=== PATIENT | female | born 1975 | race Caucasian/White ===

== ENCOUNTER → 2017-11-17 11:57 | Outpatient (CLI) | payer OTHER, SELFPAY ==
[2017-11-17 14:41] LABS: Anion Gap 9 (5-15); BUN 17 mg/dL (7-18); Calcium,Total 9.2 mg/dL (8.5-10.1); Chloride 100 mmol/L (98-107); Cholesterol 238 mg/dL (200); Creatinine, Serum 0.81 mg/dL (0.55-1.02); EST Glomerular Filtration Rate 82 mL/min (>60); Est Glom Filt Rate - Afr Amer 99 mL/min (>60); Glucose 93 mg/dL (74-106); High Density Lipoprotein 50 mg/dL; Potassium 3.9 mmol/L (3.5-5.1); Sodium Level 135 mmol/L (136-145); Triglycerides 166 mg/dL; Very Low Density Lipoprotein 33 mg/dL (5-40)
[2017-11-21 09:50] LABS: Cotinine Screen Blood None Detected (.); Nicotine Blood None Detected (.)
== END ==
PROVIDERS: Family Provider Family Medicine; PCP Family Medicine; Visit Provider Family Medicine
DX: I10 Essential (primary) hypertension (principal); Z01.89 Encounter for other specified special examinations
CPT/HCPCS: 36415; 80048; 80061; 80323

== ENCOUNTER 2018-02-26 16:31 | Emergency (ER) | payer OTHER, SELFPAY ==
[2018-02-26 16:32] VITALS: BP 143/97; PULSE 102; RESP 20; TEMP 36.4; BMI 28.9
--- NOTE | 2018-02-26 16:59 | ED.VISSUMM ---
- ER Visit Summary Date of Service: 02/26/18 Chief Complaint: Lower back pain History of Present Illness: The patient is a 42 F who presents for severe right-sided lower back pain. Patient states she was getting out of her car 3 days ago when she had sudden onset of sharp stabbing lower back pain, worse on the right. Patient had a difficult time transferring but had improvement if she stood up and was still. Sharp stabbing pain with motion radiates down the right buttock and back of the right thigh, and does not go below the mid calf. She tried ibuprofen at that time. She felt somewhat better the next day, but for the last 2 days has been having severe pain limiting her mobility. She has most relief if she stands still. She has severe pain if she tries to bend, sit, lay down, or get up out of bed. She has been able to walk, but anything requiring flexion or extension at the waist causes pain. She denies abdominal pain, nausea or vomiting, fever, urinary incontinence or retention, bowel incontinence or retention, numbness or weakness in the legs, saddle anesthesia, history of cancer or IV drug use. No prior back injuries. Patient had gallbladder surgery 1 month ago. She tried 2 of her Percocet from surgery and had no relief of her back pain. She recently was moving bricks at home. Physical Examination: Vital signs: afebrile, hemodynamically stable, no hypoxia on room air General: well nourished, well developed, full, standing straight and very still Skin: warm, dry, no rash, no pallor HEENT: normocephalic and atraumatic; PERRL, EOMI, moist mucous membranes Cardiovascular: regular rate and rhythm without murmurs, no peripheral edema, 2+ pulses all distal extremities Respiratory: No increased work of breathing, lungs are clear to auscultation bilaterally, no rales, rhonchi or wheezing Abdominal: Abdomen is soft, nontender with normoactive bowel sounds, no guarding or rebound, no masses Back: No thoracic or cervical midline tenderness. Point tenderness in the lower lumbosacral midline and tenderness to palpation of the right paraspinal musculature. No step-offs deformities, induration or fluctuance. Sensation and motor function are intact all dermatomes of the lower extremities. Normal buttock clench. MSK: Moves all extremities, no deformities, normal strength Neuro: Awake and alert, oriented ?4. No facial droop, sensation and motor function intact and symmetric Test Results: [] Emergency Department Course and Treatment: Patient presents with history and physical exam consistent with a lumbosacral strain, with right-sided radicular symptoms. She has no red flag symptoms concerning for cauda equina, epidural hematoma or mass, other concern for spinal compression. Patient was given Norflex and Toradol for pain. We discussed medication and non-medication management of low back pain. Patient was given a prescription for naproxen and Flexeril. She will follow-up with your primary care doctor if she continues to have back pain after 10-14 days. Return precautions given. Discharged home. Treatment Plan: [] Disposition: [] Impression: Acute lumbosacral strain This note was generated with [employer] dictation software. It may contain incorrect words, spelling, and punctuation that were not noted in review of the chart prior to signing ED Disposition - Plan for ED Patient: Disposition: Home or Assisted Living Chief Complaint: Back Instructions: ED Low Back Pain Injury, ED Sprain Strain Lumbar Prescriptions: RX: Naproxen [Naprosyn] 500 mg PO BID PRN #20 tab Cyclobenzaprine [Flexeril] 5 - 10 mg PO TID PRN #30 tab PRN Reason: Muscle Spasm Referrals: Riky Harris MD [Primary Care Provider] - 10-14 Days if not better Additional Instructions: You may use [id number] naproxen or the prescription for naproxen that you were given. Take it every 12 hours for 3 days whether you feel you need it or not just to help with inflammation. Afterwards you may take it as needed. Use the Flexeril as needed for muscle spasm. Do not drive or do any other dangerous activities while taking it in case it makes you sleepy. If at any point you develop fever, severe abdominal pain, loss of bowel or bladder control, weakness in the legs, numbness in the groin, or any other concerning symptoms, return immediately to the emergency department for another evaluation.
--- NOTE | 2018-02-26 17:03 | ED.DCSUM_ITS ---
- ER Visit Summary Date of Service: 02/26/18 Chief Complaint: Lower back pain History of Present Illness: The patient is a 42 F who presents for severe right- sided lower back pain. Patient states she was getting out of her car 3 days ago when she had sudden onset of sharp stabbing lower back pain, worse on the right. Patient had a difficult time transferring but had improvement if she stood up and was still. Sharp stabbing pain with motion radiates down the right buttock and back of the right thigh, and does not go below the mid calf. She tried ibuprofen at that time. She felt somewhat better the next day, but for the last 2 days has been having severe pain limiting her mobility. She has most relief if she stands still. She has severe pain if she tries to bend, sit, lay down, or get up out of bed. She has been able to walk, but anything requiring flexion or extension at the waist causes pain. She denies abdominal pain, nausea or vomiting, fever, urinary incontinence or retention, bowel incontinence or retention, numbness or weakness in the legs, saddle anesthesia, history of cancer or IV drug use. No prior back injuries. Patient had gallbladder surgery 1 month ago. She tried 2 of her Percocet from surgery and had no relief of her back pain. She recently was moving bricks at home. Physical Examination: Vital signs: afebrile, hemodynamically stable, no hypoxia on room air General: well nourished, well developed, full, standing straight and very still Skin: warm, dry, no rash, no pallor HEENT: normocephalic and atraumatic; PERRL, EOMI, moist mucous membranes Cardiovascular: regular rate and rhythm without murmurs, no peripheral edema, 2+ pulses all distal extremities Respiratory: No increased work of breathing, lungs are clear to auscultation bilaterally, no rales, rhonchi or wheezing Abdominal: Abdomen is soft, nontender with normoactive bowel sounds, no guarding or rebound, no masses Back: No thoracic or cervical midline tenderness. Point tenderness in the lower lumbosacral midline and tenderness to palpation of the right paraspinal musc ulature. No step-offs deformities, induration or fluctuance. Sensation and motor function are intact all dermatomes of the lower extremities. Normal buttock clench. MSK: Moves all extremities, no deformities, normal strength Neuro: Awake and alert, oriented ?4. No facial droop, sensation and motor function intact and symmetric Test Results: [] Emergency Department Course and Treatment: Patient presents with history and physical exam consistent with a lumbosacral strain, with right-sided radicular symptoms. She has no red flag symptoms concerning for cauda equina, epidural hematoma or mass, other concern for spinal compression. Patient was given Norflex and Toradol for pain. We discussed medication and non-medication ma nagement of low back pain. Patient was given a prescription for naproxen and Flexeril. She will follow-up with your primary care doctor if she continues to have back pain after 10-14 days. Return precautions given. Discharged home. Treatment Plan: [] Disposition: [] Impression: Acute lumbosacral strain This note was generated with [employer] dictation software. It may contain incorrect words, spelling, and punctuation that were not noted in review of the chart prior to signing ED Disposition - Plan for ED Patient: Disposition: Home or Assisted Living Chief Complaint: Back Instructions: ED Low Back Pain Injury, ED Sprain Strain Lumbar Prescriptions: RX: Naproxen [Naprosyn] 500 mg PO BID PRN #20 tab Cyclobenzaprine [Flexeril] 5 - 10 mg PO TID PRN #30 tab PRN Reason: Muscle Spasm Referrals: Riky Harris MD [Primary Care Provider] - 10-14 Days if not better Additional Instructions: You may use [id number] naproxen or the prescription for naproxen that you were given. Take it every 12 hours for 3 days whether you feel you need it or not just to help with inflammation. Afterwards you may take it as needed. Use the Flexeril as needed for muscle spasm. Do not drive or do any other dangerous activities while taking it in case it makes you sleepy. If at any point you develop fever, severe abdominal pain, loss of bowel or bladder control, weakness in the legs, numbness in the groin, or any other concerning symptoms, return immediately to the emergency department for another evaluation.
[2018-02-26] MEDS: Ketorolac 60 MG/2 ML Vial IM (17:04)
[2018-02-26] MEDS: Orphenadrine 60 MG/2 ML Ampul IM (17:04)
--- NOTE | 2018-02-26 17:20 | ED.DEP ---
ED Disposition - Plan for ED Patient: Disposition: Home or Assisted Living Chief Complaint: Back Instructions: ED Low Back Pain Injury, ED Sprain Strain Lumbar Prescriptions: Naproxen [Naprosyn] 500 mg PO BID PRN #20 tab Cyclobenzaprine [Flexeril] 5 - 10 mg PO TID PRN #30 tab PRN Reason: Muscle Spasm Referrals: Riky Harris MD [Primary Care Provider] - 10-14 Days if not better Additional Instructions: You may use [id number] naproxen or the prescription for naproxen that you were given. Take it every 12 hours for 3 days whether you feel you need it or not just to help with inflammation. Afterwards you may take it as needed. Use the Flexeril as needed for muscle spasm. Do not drive or do any other dangerous activities while taking it in case it makes you sleepy. If at any point you develop fever, severe abdominal pain, loss of bowel or bladder control, weakness in the legs, numbness in the groin, or any other concerning symptoms, return immediately to the emergency department for another evaluation.
[2018-02-26 17:30] VITALS: BP 118/62; PULSE 74; RESP 16; O2SAT 98
== END 2018-02-26 17:31 | disposition home or self-care (01) ==
PROVIDERS: Emergency Provider Emergency Medicine; Family Provider Family Medicine; PCP Family Medicine
DX: S39.012A Strain of muscle, fascia and tendon of lower back, initial encounter (principal); X50.0XXA Overexertion from strenuous movement or load, initial encounter; Y93.89 Activity, other specified; Y92.89 Other specified places as the place of occurrence of the external cause; Y99.8 Other external cause status
CPT/HCPCS: 96372; 99282

== ENCOUNTER → 2018-03-31 11:38 | Outpatient (CLI) | payer OTHER, SELFPAY ==
[2018-04-04 09:06] LABS: HPV Reflexed? NOT INDICATED
== END ==
PROVIDERS: PCP Family Medicine; Visit Provider Obstetrics & Gynecology
DX: Z12.4 Encounter for screening for malignant neoplasm of cervix (principal)
CPT/HCPCS: 88175; G0145

== ENCOUNTER → 2018-05-10 14:44 | Outpatient (CLI) | payer OTHER, SELFPAY ==
--- NOTE | 2018-05-10 14:49 | BI_ITS ---
MAMMOGRAPHY - BILATERAL SCREENING REASON FOR EXAM: Female, 43 years old. Routine annual screening examination. PERTINENT HISTORY: Aunt with breast cancer. TECHNIQUE: Digital bilateral breast aretha (3D mammographic acquisition) in the CC and MLO projections. 2-D mediolateral oblique (MLO) and craniocaudad (CC) views of both breasts were obtained. CAD: Full Field Digital Mammography with Computer Added Detection was performed. COMPARISON: Comparison is made with prior study dated April 08, 2016 and April 05, 2015. FINDINGS: Breast Composition: There are scattered areas of fibroglandular density. There are no dominant masses or suspicious calcifications. No other significant abnormalities are identified. There has been no significant change since the prior study. BI/SCREENING MAMM (CAD), BILAT IMPRESSION: Stable bilateral screening mammogram. Yearly follow-up mammogram recommended. (A) ASSESSMENT CATEGORY: BIRADS Category 1: Negative. A letter regarding these results will be sent to the patient by the facility within 30 days. Approximately 10% of breast cancers are not detected by mammography. A normal mammogram should not delay biopsy of a clinically suspicious abnormality. [id number] Electronically Signed: Brant Bonds, at 9:30 EST , Service support ,
== END ==
PROVIDERS: Family Provider Family Medicine; PCP Family Medicine; Referring Provider Obstetrics & Gynecology; Visit Provider Obstetrics & Gynecology
DX: Z12.31 Encounter for screening mammogram for malignant neoplasm of breast (principal)
CPT/HCPCS: 77063; 77067

== ENCOUNTER → 2019-06-29 09:30 | Outpatient (CLI) | payer OTHER, SELFPAY ==
--- NOTE | 2019-06-29 09:34 | VDLE_ITS ---
Reason For Study: Pain in left leg Procedure LEFT Exam performed in department. GSV is normal. A preliminary report was called and/or faxed CFV is compressible, spontaneous, phasic, to Moncho. competent, and demonstrates normal augmentation. FV is compressible, spontaneous, phasic, competent and demonstrates normal augmentation. POP V is compressible, spontaneous, phasic, competent and demonstrates normal augmentation. T/P Trunk is compressible. PTV is compressible. LT PerV is compressible. Large nonvascularized structure noted in the left popliteal space measuring approximently 1.19 x 4.31 x 6.14 cm. Large nonvascualrized structure noted in the left mid calf muscle region measuring approximently 1.68 x 4.38 cm. Interpretation Summary Deep veins of the left lower extremity are patent and compressible segmentally. There is no evidence of left lower extremity deep vein thrombosis. Valvular competence appears intact within the proximal deep venous system on the left . The left great saphenous vein appears patent and compressible segmentally. A non-vascular, hypoechoic structure is noted in the left popliteal space, measuring 1.19 cm x 4.31 cm x 6.14 cm. This may represent a popliteal cyst. A non-vascular, heterogeneous structure is noted in the left mid-calf, measuring 1.68 cm x 4.38 cm. This may represent a seroma or hematoma. Clinical correlation is advised. Ordering Physician: Zuleika Ivan Referring Physician: Reynaldo Harris MD Performed By: Sadie Salas RVT
== END ==
PROVIDERS: PCP Family Medicine; Referring Provider Registered Nurse; Visit Provider Registered Nurse
DX: M79.605 Pain in left leg (principal)
CPT/HCPCS: 93971

== ENCOUNTER → 2019-07-06 | Outpatient (CLI) | payer OTHER, SELFPAY ==
--- NOTE | 2019-07-06 15:34 | MRI_ITS ---
PROCEDURE: MRI LOWER EXTREMITY LEFT TIBIA/FIBULA REASON FOR EXAM: Female, 44 years old. left leg pain, left calf pain, pt felt ;tear ; 3 wks ago TECHNIQUE: Standardized fat and water weighted pulse sequences were obtained in all 3 orthogonal planes. COMPARISON: None. FINDINGS: Normal tibia and fibula, without a periosteal, cortical or cancellous marrow abnormality. Normal anterior and lateral calf compartments, with normal muscles, crural fascia and intermuscular septa. There is a popliteal cyst at the knee. There is a 10.2 x 4.5 cm heterogeneous lobular fluid collection between the medial head of the gastrocnemius and the soleus and probable hematoma, series 3 images 11/02 through 02/02. There is mild edema of the gastrocnemius and soleus. MRI/Lower Ext/No Jt/w/o IMPRESSION: Fluid collection of the medial calf suggesting hematoma associated with plantaris tendon rupture. Electronically Signed: Adair Allen MD at 17:35 EDT , Service support ,
--- NOTE | 2019-07-06 15:34 | MRI_ITS ---
STUDY: MRI LEFT KNEE REASON FOR EXAM: Female, 44 years old. Pain. TECHNIQUE: Standardized fat and water weighted pulse sequences were obtained in all 3 orthogonal planes. COMPARISON: None. FINDINGS: Normal medial meniscus. There is diffuse, less than 50% thickness articular cartilage loss of the medial femorotibial compartment. Normal medial femoral condyle and tibial plateau. Normal medial collateral ligamentous complex (MCL). Normal distal semimembranosus, gracilis and semitendinosus tendons. Normal lateral meniscus. Normal hyaline cartilage of the lateral femorotibial compartment. Normal lateral femoral condyle and tibial plateau. Normal proximal tibiofibular articulation. Normal lateral collateral (fibular) ligament. Normal popliteus tendon. Normal biceps femoris tendon. Normal anterior cruciate ligament (ACL). Normal posterior cruciate ligament (PCL). There is arthrosis of the patellofemoral articulation. Subchondral edema and cystic change of the patella and the opposing trochlear groove of the distal femur. There is diffuse, greater than 50% thickness articular cartilage loss of the patellofemoral compartment. Normal medial and lateral patellar retinaculum. Normal quadriceps tendon. Normal patellar tendon. Normal Hoffa''s fat pad. There is a small volume joint effusion. There is a Dial''s cyst. There is a cystic region of the lateral musculature extending to the calf The soft tissues are unremarkable. The otherwise visualized osseous structures are unremarkable. MRI/Lower Ext Joint Only (Routine) IMPRESSION: Patellofemoral degenerative change. No meniscal tear. Joint effusion. Popliteal cyst and cyst extending to the calf musculature. Electronically Signed: Adair Allen MD at 17:28 EDT , Service support ,
== END | disposition home or self-care (01) ==
LOC: MRI 15:30
PROVIDERS: PCP Family Medicine; Referring Provider Registered Nurse; Visit Provider Registered Nurse
DX: S80.12XD Contusion of left lower leg, subsequent encounter (principal); M79.605 Pain in left leg; I10 Essential (primary) hypertension
CPT/HCPCS: 73718; 73721

== ENCOUNTER 2021-01-19 17:53 | Emergency (ER) | payer OTHER, SELFPAY ==
[2021-01-19 17:53] VITALS: RESP 18
[2021-01-19 17:54] VITALS: BP 171/101; PULSE 116; RESP 14; TEMP 36.4; O2SAT 96; BMI 30.9
--- NOTE | 2021-01-19 18:08 | RAD_ITS ---
STUDY: XR Ankle Min 3 Views REASON FOR EXAM: Female, 45 years old. ANKLE PAIN TECHNIQUE: XR Ankle Min 3 Views COMPARISON: None. FINDINGS: Normal visualized distal tibia . Normal medial and lateral malleoli. Medial ankle dislocation. There is an enthesophyte involving the posterior superior calcaneus at the site of insertion of the Achilles tendon. The visualized subtalar, talonavicular, calcaneocuboid and tarsal articulations are normal. Distal fibular fracture. There is soft tissue swelling around the ankle. RAD/Ankle min 3 Views IMPRESSION: There is soft tissue swelling. Medial ankle dislocation. Distal fibular fracture. Electronically Signed: Dewayne Ladd MD at 18:32 EST , Service support ,
[2021-01-19] MEDS: HYDROcodone Bitartrate/Apap 5/325 Tablet PO (18:41)
--- NOTE | 2021-01-19 18:53 | ED.VIS.LOWEX ---
HPI History of Present Illness Chief Complaint: Lower Extremity Injury Informant: patient Onset/Context/Timing Onset: Today and Hours Context: Sudden Onset Timing: Continuous Quality of Pain: Sharp Current Severity: Severe Maximum Severity: Severe Associated Symptoms Associated Symptoms: Negative for Parasthesia and Weakness Narrative Narrative: 45-year-old female has had prior surgery in her left ankle for ligamentous injuries. Today she was outside slid and no wets ground and heard a pop when she inverted her left ankle. Now it is painful swollen she is unable to bear weight. Denies other injuries. Prior similar symptoms: Yes Recent Illness/Hospitalization: No PFSH PFSH Medical History Depression Hypertension Home Medications escitalopram oxalate 20 mg PO DAILY 08/12/13 [History Last Taken Unknown] lisinopril 20 mg PO QHS 08/12/13 [History Last Taken Unknown] nortriptyline 20 mg PO QHS 08/12/13 [History Last Taken Unknown] zolmitriptan [Zomig] 5 mg PO PRN PRN 08/12/13 [History Last Taken Unknown] albuterol sulfate [Proair Hfa (SP)Vent Pts] 1 - 2 puff INHALATION Q4H PRN PRN 04/12/15 [History Last Taken 04/19/15 07:00] hydrochlorothiazide 12.5 mg PO QHS 04/12/15 [History Last Taken Unknown] loratadine [Claritin] 10 mg PO DAILY 04/12/15 [History Last Taken Unknown] multivitamin with folic acid [Thera] 1 tab PO DAILY 04/12/15 [History Last Taken Unknown] omeprazole 20 mg PO DAILY 04/12/15 [History Last Taken 04/19/15 07:00] hydrocodone-acetaminophen 1 tab PO Q4H PRN 5 Days #20 tab 01/19/21 [Rx Last Taken Unknown] Allergy/AdvReac Type Severity Reaction Status Date / Time No Known Allergies Allergy Verified 01/19/21 17:55 Surgical History History of ankle surgery History of carpal tunnel release of both wrists History of cholecystectomy Social History Smoking Status: Never smoker ROS ROS ED ROS Narrative Denies recent illness. Review of Systems ROS Unobtainable: Denies due to encephalopathy Constitutional Constitutional ED: Denies fever(s) Eyes Eyes: Denies change in vision ENT ENT ED: Denies ear pain Cardiovascular Cardiovascular: Denies chest pain Respiratory/Chest Respiratory/Chest: Denies dyspnea Gastrointestinal Gastrointestinal: Denies abdominal pain, diarrhea, nausea or vomiting Genitourinary Genitourinary ED: Denies dysuria Musculoskeletal Musculoskeletal: Denies myalgias Integumentary Denies rash Neurologic Neurologic: Denies headache(s) Psychiatric Psychiatric: Denies depression Endocrine Endocrinology: Denies polyuria Hematologic/Lymphatic Hematologic/Lymphatic: Denies easy bruising Allergic/Immunologic Allergic/Immunologic ED: Denies urticaria EXAM Physical Exam Narrative Exam Narrative: She fell clamp in the left ankle. HEENT, neck, heart, lung, chest and abdominal exam unremarkable. Both upper shows right lower extremity nontender. Left lower extremity left hip and knee are nontender nonswollen. Normal range of motion. Left ankle swelling and tenderness most well on the lateral malleolus also tenderness along the medial malleolus. DP pulse intact. Heel is intact. Foot nontender able to wiggle her toes. Normal touch sensation. Const Vital Signs: 01/19/21 17:54 Temperature 97.6 F L Temperature Source Temporal Pulse Rate 116 H Respiratory Rate 14 Blood Pressure 171/101 H Blood Pressure Mean 124 Pulse Ox 96 Oxygen Delivery Method Room Air Positive well nourished and well developed; Negative for obese, cachectic, contractures or unkempt General Appearance ED: well developed and NAD; Negative for unkempt, cachectic or contractures Nutritional Appearance: Negative for cachectic or obese HEENT Reports moist mucous membranes normocephalic and atraumatic; Negative for trauma or tenderness Eyes PERRL Neck full ROM and supple Thyroid: Negative for tender Chest Wall inspection of chest normal and palpation of chest normal Resp normal respiratory effort, no retractions and clear to auscultation bilaterally Auscultation: Negative for rales, rhonchi or wheezes Cardio regular rate, regular rhythm, S1 normal heart sound, S2 normal heart sound and no murmurs GI non-distended and no masses Auscultation: normoactive bowel sounds Palpation: soft; Negative for tender or guarding Back/Spine no CVA tenderness Cervical Spine: Negative for cervical spine tenderness Thoracic Spine / Upper Back: Negative for thoracic spinal tenderness Lumbar Spine / Lower Back: Negative for lumbar spinal tenderness Extremity normal to inspection Extremity Narrative: Except left ankle tenderness swelling about the medial lateral malleolus worse on the lateral malleolus. Achilles intact. DP pulse palpable. Foot nontender. Able to wiggle her toes. Normal touch sensation and cap refill. Neuro oriented x3 and moves all extremities Sensorium / Orientation: alert, oriented to person, oriented to place and oriented to time Psych mental status grossly normal Appearance: Negative for unkempt Skin no wounds Lesions: no lesions Rashes: no rashes Trauma: Negative for abrasion or laceration MDM MDM MDM Narrative Medical decision making narrative: Patient with obvious left ankle injury. Given [address] [place] [address] for pain. X-ray revealed a distal fibula fracture with widening of the ankle mortise. Patient was placed in a short leg well-padded posterior splint on the left. She tolerated it well. She is instructed no weightbearing. [place] Plane for pain ice and elevate. Motrin. Radiography Diagnostic Testing: Clinical Impression(s) from Imaging Studies Ankle X-Ray 01/19/21 18:08 IMPRESSION: There is soft tissue swelling. Medial ankle dislocation. Distal fibular fracture. Electronically Signed: Dewayne Ladd MD at 18:32 EST , Service support , Left ankle 3 views shows a distal fibular fracture with a widened ankle mortise. Interpreted by myself and the radiologist. This is not dislocated. Procedures Lower Extremity Splints Lower Extremity Splint: Orthoglass Splint Fabrication: Fabricated Location: Left Discharge Plan Triage Chief Complaint: Lower Extremity Injury ED Provider: Sebastian Sosa Dx/Rx/DC Orders Clinical Impression: Ankle fracture, left Instructions: ED Ankle Fracture Prescriptions: New hydrocodone-acetaminophen 5-325 mg tablet 1 tab PO Q4H PRN (Reason: pain) 5 Days Qty: 20 RF: 0 No Action lisinopril 20 MG tablet 20 mg PO QHS RF: 0 zolmitriptan [Zomig] 2.5 MG tablet 5 mg PO PRN PRN (Reason: migraines) RF: 0 nortriptyline 10 MG capsule 20 mg PO QHS RF: 0 escitalopram oxalate 10 MG tablet 20 mg PO DAILY RF: 0 hydrochlorothiazide 12.5 MG capsule 12.5 mg PO QHS RF: 0 omeprazole 20 MG capsule 20 mg PO DAILY RF: 0 albuterol sulfate [ProAir HFA] 1 PUFF inhaler 1 - 2 puff inhalation Q4H PRN PRN (Reason: allergry) RF: 0 loratadine [Allergy Relief (loratadine)] 10 MG tablet 10 mg PO DAILY RF: 0 multivitamin with folic acid [Thera] 1 TABLET tablet 1 tab PO DAILY RF: 0 Primary Care Provider: Riky Harris Referrals: Riky Harris MD [Primary Care Provider] - Najma Brown DPM [STAFF PHYSICIAN] - As soon as possible Activity Restrictions/Additional Instructions: Ice and elevate your left ankle at least 4 times a day for 2030 minutes each time. If not longer. Motrin for pain and inflammation. [place] Plane for more severe pain. Call and follow-up with Dr. Brown tomorrow. No weightbearing. Use crutches. Keep the splint dry and clean. Disposition Disposition: Home, Self Care
[2021-01-19 19:26] VITALS: BP 140/90; PULSE 94
== END 2021-01-19 19:44 | disposition home or self-care (01) ==
PROVIDERS: Emergency Provider Emergency Medicine; PCP Family Medicine
DX: S82.832A Other fracture of upper and lower end of left fibula, initial encounter for closed fracture (principal); M25.572 Pain in left ankle and joints of left foot; F32.A Depression, unspecified; I10 Essential (primary) hypertension; Z79.899 Other long term (current) drug therapy; W01.0XXA Fall on same level from slipping, tripping and stumbling without subsequent striking against object, initial encounter; Y93.89 Activity, other specified; Y92.89 Other specified places as the place of occurrence of the external cause; Y99.8 Other external cause status
CPT/HCPCS: 73610; 99282

== ENCOUNTER → 2021-01-21 10:00 | Outpatient (CLI) | payer OTHER, SELFPAY ==
[2021-01-21 12:25] LABS: Hematocrit 36.8 % (37-47); Hemoglobin 12.2 g/dL (12.0-15.0); Mean Corp Hgb Conc 33.2 g/dL (32-36); Mean Corpuscular Hgb 29.9 pg (27.0-32.0); Mean Corpuscular Volume 90.2 fL (81-99); Mean Platelet Vol. 9.4 fl (6.2-12.0); Platelet Count 321 K/mm3 (150-450); RBC Distribution Width CV 12.8 % (11.6-14.6); RBC Distribution Width SD 41.9 fl (35.1-43.9); Red Blood Count 4.08 M/mm3 (4.2-5.4); White Blood Count 7.1 K/mm3 (4.4-11.0)
[2021-01-21 13:02] LABS: Anion Gap 7 (5-15); BUN 14 mg/dL (7-18); BUN/Creat Ratio 16.6 RATIO (10-20); Calcium,Total 9.1 mg/dL (8.5-10.1); Chloride 103 mmol/L (98-107); Cholesterol 227 mg/dL (200); Creatinine, Serum 0.84 mg/dL (0.55-1.02); EST Glomerular Filtration Rate 77 mL/min (>60); Est Glom Filt Rate - Afr Amer 93 mL/min (>60); Glucose 104 mg/dL (74-106); High Density Lipoprotein 48 mg/dL; Sodium Level 136 mmol/L (136-145); Triglycerides 218 mg/dL; Very Low Density Lipoprotein 44 mg/dL (5-40)
[2021-01-22 10:35] LABS: Vitamin D,25 Hydroxy 21.9 ng/mL
== END ==
PROVIDERS: PCP Family Medicine; Referring Provider Family Medicine; Visit Provider Family Medicine
DX: Z01.818 Encounter for other preprocedural examination (principal); E55.9 Vitamin D deficiency, unspecified; I10 Essential (primary) hypertension
CPT/HCPCS: 36415; 80048; 80061; 82306; 85027

== ENCOUNTER 2021-01-28 12:21 | Day surgery (SDC) | payer OTHER, SELFPAY ==
[2021-01-28] VITALS (8 sets, daily range): BP systolic 116–134; BP diastolic 63–91; PULSE 80–98; RESP 16; TEMP 36.1–36.8; O2SAT 95–98; BMI 31.4
[2021-01-28 12:51] LABS: Internal QC Validated? YES +Cl - CLEAR BKGD
[2021-01-28 12:52] LABS: Pregnancy, Urine Negative Negative
[2021-01-28] MEDS: Lactated Ringers 1,000 ML 15 ML IV (13:08)
[2021-01-28] MEDS: Lidocaine 1% (30 ml sdv) 30 ML Vial (13:42)
[2021-01-28] MEDS: Cefazolin 2 GM in 0.9% Normal Saline 100 ML IV (13:44)
--- NOTE | 2021-01-28 13:46 | EX.PCM.DISCH ---
Discharge Instructions Procedure Narrative: open reduction internal fixation of left ankle fracture Diet Discharge Diet: No restrictions Activity Discharge Activity: May Not Drive and May Shower (only with the use of a shower bag) Weight Bearing Status: No weight bearing Keep extremity elevated above heart level: Left Leg Dressing / Incision Call your doctor if your incision/area has: Continuous Slow Oozing, Sudden Increased Bleeding, Increased Pain/ Swelling, Increased Redness, Foul Smelling Discharge and Swelling at the incision site Call your doctor if you observe: Fever of 101 or Higher, Chest pain, Calf discomfort and Uncontrolled pain Change Dressing in: do not change dressing Remove Dressing in: do not remove dressing Cleanse incision/area with: Keep Dressing Clean & Dry Follow Up Care Please Follow Up With: Najma Brown DPM When: 1 week. Call [facility] sooner if questions or concerns at [phone]. Test Results: Test results from this visit will be discussed in further detail at your follow-up appointment, if applicable. Discharge Plan Admission Attending Provider: Najma Brown Primary Care Provider: Riky Harris Discharge Orders/Prescriptions Prescriptions: No Action lisinopril 20 MG tablet 20 mg PO QHS RF: 0 zolmitriptan [Zomig] 2.5 MG tablet 5 mg PO PRN PRN (Reason: migraines) RF: 0 nortriptyline 10 MG capsule 20 mg PO QHS RF: 0 escitalopram oxalate 10 MG tablet 20 mg PO DAILY RF: 0 hydrochlorothiazide 12.5 MG capsule 12.5 mg PO QHS RF: 0 omeprazole 20 MG capsule 20 mg PO DAILY RF: 0 albuterol sulfate [ProAir HFA] 1 PUFF inhaler 1 - 2 puff inhalation Q4H PRN PRN (Reason: allergry) RF: 0 loratadine [Allergy Relief (loratadine)] 10 MG tablet 10 mg PO PRN PRN (Reason: ALLERGIES) RF: 0 multivitamin with folic acid [Thera] 1 TABLET tablet 1 tab PO DAILY RF: 0 hydrocodone-acetaminophen 5-325 mg tablet 1 tab PO Q4H PRN (Reason: pain) 5 Days Qty: 20 RF: 0 Disposition Discharge Orders: Discharge Patient (Routine); Ordered 01/28/21 Ordered By: Dr. Najma Brown
--- NOTE | 2021-01-28 14:10 | RAD_ITS ---
HISTORY: Fracture EXAMINATION/TECHNIQUE: XR Ankle 2 Views: Intraoperative fluoroscopic images of the left ankle open reduction and internal fixation. COMPARISON: Ankle radiographs from 01/19/21 FINDINGS/IMPRESSION: Fluoroscopic dosage information: 1.52 mGy, 62.9 seconds, 4 C-arm images. Orthopedic fixation plate and screws spanning distal fibula. Adequate alignment of fracture fragments and ankle. at 0438 Reported and signed by: Arpit Smith MD Electronically Signed: Arpit Smith MD at 4:37 EST Tel , Service support , RAD/Ankle 2 Views
[2021-01-28] MEDS: Bupivacaine Mpf 0.5% 30 ML VIAL (15:01)
--- NOTE | 2021-01-28 15:24 | OP.PCM_ITS ---
Problems Associated Problem List Diagnoses (1) Left ankle pain: (2) Displaced oblique fracture of shaft of left fibula, initial encounter for closed fracture: Report of Operation Date of Procedure: 01/28/21 Pre-Operative Diagnosis: ankle fracture left (fibula) Post-Operative Diagnosis: ankle fracture left (fibula) Surgery/Procedure Performed:: open reduction internal fixation left fibula ankle fracture Description of Surgical Findings:: Hemostasis: Well-padded pneumatic left thigh tourniquet, 315 mmHg, 50 minutes Materials: Arthrex distal locking fibular plate with three compression locking screws (2.5 mm), 1 cortical screw (3.5 mm), 2 locking screws (3.5 mm), 2-0 Vicryl, 3-0 nylon Complications: None The patient tolerated the procedure and anesthesia well. The patient was transported to the PACU with vital signs stable and vascular status intact to the surgical limb. To ice and elevate for pain and inflammation management. Postoperative x-rays were reviewed prior to leaving the operating room. There is status post open reduction internal fixation of left fibula with reduced fracture and deformity correction. The hardware is in the desired trajectory and position. The ankle mortise is well aligned. There are no acute injuries. The live fluoroscopy syndesmosis stress test did not demonstrate any additional laxity. Postoperative orders were entered electronically. Surgeon: Najma Brown brownfield program coordinator: None (Kamila Lugo, PGY3, DPM) Type of Anesthesia: General and Local (Preop: 1:1 mix 1% lidocaine plain and 0.5% Marcaine plain administered in high ankle block fashion left (17 cc). Postop: 0.5% Marcaine plain administered and local infiltrative manner left ankle (18 cc).) Specimen's removed: none Drains: none Estimated Blood Loss (mL): <100 mL Description of Procedure: Indications: This 45-year-old female slipped on 01-19-2021 and injured her ankle. She heard a pop and was unable to bear weight. She presented to the emergency room in which a splint was placed and she obtained ankle x-rays. There was a short spiral oblique fracture of the distal fibula at the ankle joint level with displacement and medial gutter widening. Her neurovascular status remains intact. She denies loss of consciousness or other injuries. Preoperative diagnostic data was reviewed without gross abnormalities including CBC and CMP. Preoperative H&P was alsoreviewed. Preoperative indications, planned procedure, benefits, risk, anticipated healing time and management were reviewed. The patient understands and elects proceed with surgery at this time. No guarantees were made. The patient understands risk and complications include but are not limited to following: pain, swelling, scarring, need for further surgery, tendon contracture, hardware failure, arthritis, need for further surgery, delayed or nonhealing, infection, blood clot, allergic reaction, loss of limb, function, or life. The informed surgical limb and consent were signed. I answered all the patient's questions. The patient also understands there is an inherent risk with being in the hospital and undergoing a procedure during the time of COVID-19 pandemic. The patient understands precautions are being taken to prevent transmission. This patient understands the benefits and risks of having a procedure at this time versus waiting in which the benefits are reasonable at this time. Procedure in detail: The patient was transferred to the operating room via cart and placed on the operating table in the supine position. Final verification of the patient, surgery, and limb designation was performed via the timeout procedure. A well- padded pneumatic thigh tourniquet was placed on the left lower extremity. The patient was given 2 g of IV Ancef prior to the surgical procedure initiation. General anesthesia was initiated by the anesthesia team. I administered the preoperative local anesthetic. The left lower extremity was prepped and draped in the usual aseptic manner. Exsanguination was performed with an Esmarch bandage and the tourniquet was inflated at this time. Attention was first directed to the lateral aspect of the ankle in which a 6 cm linear incision was made through the skin. Care was taken to identify, protect, retract all neurovascular structures at this point and throughout the remainder of surgery. Blunt dissection was performed down to the fracture fragment taking care to preserve the periosteum. The fracture hematoma was identified and the fracture site was gently mobilized however it was noted to be in approximation after the tissue was mobilized. The length of the fibula was maintained. Next, a contoured fibular plate was applied as a neutralization plate to the distal fibula. Additional locking and nonlocking screws were applied via the plate to span the entire fracture fragment. All reduction clamps were removed and this fracture was fixated in a stable manner and moved as one solid unit. Proper AO fixation technique was performed to allow solid fixation. Intraoperative fluoroscopy was utilized to confirm appropriate maintenance of the fibular length and rotational position with hardware in desired position and trajectory. Next a cotton test was performed and there was no syndesmosis instability noted or gapping between the tibia and fibula. An additional stress dorsiflexion external rotation test was also performed without laxity. A stress inversion test was performed with less than 4 mm of medial gutter gapping and the structures were also left intact. Radiographically, all hardware was checked and the desired trajectory, length, and position with fixated fracture position was confirmed. Additional fixation was note deemed necessary at this time. All wound sites were irrigated with normal saline. Deep closure was achieved with 2-0 Vicryl to cover all hardware. The tourniquet was deflated and brisk capillary refill time was noted to all digits of the left lower extremity. Minimal electrocauterization was utilized for hemostasis. No pulsatile bleeding was noted. Pressure was applied to maintain hemostasis. The skin was reapproximated with 3-0 nylon utilizing no touch technique with simple and horizontal mattress technique. Formal postoperative x-rays will be obtained postoperatively. A postoperative dressing consisting of Adaptic, gauze, abdominal pads, and kerlix was applied. Next, a posterior mold and sugar tong splint was applied with the foot and ankle in a rectus position and this was secured gently with Hiram wraps. After procedure: The patient tolerated the procedure and anesthesia well. She was transported to the PACU with vital signs stable and vascular status intact to the left lower extremity. She will be discharged home upon continued stability and pain control. A scopolamine patch was prophylactically placed for her anticipated nausea. She was advised on safe and proper use of postoperative pain medication, Calvin. All of her postoperative orders were entered electronically. She was advised to maintain a strict nonweightbearing left lower extremity status with the use of an assistive device. To ice and elevate for pain and inflammation management. All of his postoperative orders were entered electronically. She will follow-up in clinic in 1 week. Najma Brown DPM, [facility] Grafts/Implants Used: arthrex Complications none Admit VTE Documentation VTE Present on Admission: No VTE Mechan Device Prophylaxis: SCD's VTE Pharm Prophylaxis ordered?: No Reason prophylaxis not ordered:: Procedure Not Indicated
--- NOTE | 2021-01-28 15:40 | RAD_ITS ---
STUDY: X-RAY - LEFT ANKLE REASON FOR EXAM: Female, 45 years old. s/p ORIF ankle fibula fracture TECHNIQUE: 3 view(s) of the ankle. COMPARISON: 01/28/2021 FINDINGS: Cast material obscures bony detail. Distal fibular fixation plate and screws is stable. Minimal residual fracture line along the inferior fibular tip. Normal tibiotalar articulation and ankle mortise. Calcaneal spur and enthesophyte. The visualized subtalar, talonavicular, calcaneocuboid and tarsal articulations are normal. The soft tissue structures are unremarkable. RAD/Ankle min 3 Views IMPRESSION: Similar appearance of distal fibular fixation hardware. Stable alignment. Electronically Signed: Grabiel Mota MD (Brooks) at 15:53 EST , Service support ,
== END 2021-01-28 17:48 | disposition home or self-care (01) ==
LOC: SDC 12:21 → AC 12:21
PROVIDERS: Anesthesiology; PCP Family Medicine; Referring Provider Podiatrist; Visit Provider Podiatrist
PROC: (CPT 27784; principal; 2021-01-28 13:25)
DX: S82.432A Displaced oblique fracture of shaft of left fibula, initial encounter for closed fracture (principal); F41.9 Anxiety disorder, unspecified; J45.909 Unspecified asthma, uncomplicated; F32.A Depression, unspecified; K21.9 Gastro-esophageal reflux disease without esophagitis; Z79.51 Long term (current) use of inhaled steroids; Z79.899 Other long term (current) drug therapy; X58.XXXA Exposure to other specified factors, initial encounter; Y93.89 Activity, other specified; Y92.89 Other specified places as the place of occurrence of the external cause; Y99.8 Other external cause status
CPT/HCPCS: 01480; 27784; 73600; 73610; 76000; 81025; 87426; C1713; C9803; J7120; J2405

== ENCOUNTER 2021-05-27 16:11 | Outpatient (CLI) | payer OTHER, SELFPAY ==
[2021-06-02 15:58] LABS: HPV APTIMA, High Risk Negative (Negative)
== END 2021-05-27 23:59 | disposition home or self-care (01) ==
LOC: LABSPEC 16:13
PROVIDERS: PCP Family Medicine; Visit Provider Student in an Organized Health Care Education/Training Program
DX: Z12.4 Encounter for screening for malignant neoplasm of cervix (principal)
CPT/HCPCS: 87624; 88175; G0145

== ENCOUNTER 2021-06-05 14:07 | Outpatient (CLI) | payer OTHER, SELFPAY ==
--- NOTE | 2021-06-05 14:09 | BI_ITS ---
MAMMOGRAPHY - BILATERAL SCREENING REASON FOR EXAM: Female, 46 years old. Routine annual screening examination. PERTINENT HISTORY: Aunt with breast cancer. TECHNIQUE: Digital bilateral breast juliana (3D mammographic acquisition) in the CC and MLO projections. 2-D mediolateral oblique (MLO) and craniocaudad (CC) views of both breasts were obtained. CAD: Full Field Digital Mammography with Computer Added Detection was performed. COMPARISON: Comparison is made with prior study dated 05/10/2018 and 04/08/2016. FINDINGS: Breast Composition: There are scattered areas of fibroglandular density. There is a new 1.3 cm x 1.8 cm nodular density in the deep inferior medial aspect of the left breast. Correlation with ultrasound is recommended. No other significant abnormalities are identified. BI/SCRN MAMM (CAD)W/JULIANA BILAT IMPRESSION: There is a new 1.3 cm x 1.8 cm nodular density in the deep inferior medial aspect of the left breast. Correlation with ultrasound is recommended. ASSESSMENT CATEGORY: BIRADS Category 0: Incomplete. Need additional imaging evaluation. A letter regarding these results will be sent to the patient by the facility within 30 days. Approximately 10% of breast cancers are not detected by mammography. A normal mammogram should not delay biopsy of a clinically suspicious abnormality. [id number] Electronically Signed: Brant Bonds MD at 15:38 EDT ,
== END 2021-06-05 23:59 | disposition home or self-care (01) ==
LOC: OPBI 14:08
PROVIDERS: PCP Family Medicine; Visit Provider Student in an Organized Health Care Education/Training Program
DX: Z12.31 Encounter for screening mammogram for malignant neoplasm of breast (principal)
CPT/HCPCS: 77063; 77067

== ENCOUNTER 2021-06-09 11:07 | Outpatient (CLI) | payer OTHER, SELFPAY ==
--- NOTE | 2021-06-09 11:17 | US_ITS ---
STUDY: ULTRASOUND BREAST - LEFT REASON FOR EXAM: Female, 46 years old. Abnormal screening mammogram. TECHNIQUE: Axial and longitudinal images of the LEFT breast were performed with a high resolution ultrasound transducer. # OF IMAGES: 32 COMPARISON: Comparison is made with prior mammogram dated 06/05/2021. FINDINGS: LEFT Breast: Imaging of the inferior medial aspect of the left breast was obtained by ultrasound. No sonographic abnormality is seen. Additional mammographic views will be obtained. US/Breast Limited Unilateral IMPRESSION: No sonographic abnormality is seen. Additional mammographic views will be obtained. ASSESSMENT CATEGORY: BIRADS Category 0: Incomplete. Need additional imaging evaluation. A letter regarding these results will be sent to the patient by the facility within 30 days. Electronically Signed: Brant Bonds MD at 12:48 EDT ,
--- NOTE | 2021-06-09 12:04 | BI_ITS ---
MAMMOGRAPHY - UNILATERAL DIAGNOSTIC: LEFT BREAST REASON FOR EXAM: Female, 46 years old. Abnormal screening mammogram. PERTINENT HISTORY: Aunt with breast cancer. TECHNIQUE: 90 degree lateral and compression spot views of the left breast were obtained. CAD: Full Field Digital Mammography with Computer Added Detection was performed. COMPARISON: Comparison is made with prior examination of 06/05/2021 and 05/10/2018. FINDINGS: Breast Composition: There are scattered areas of fibroglandular density. The previously seen nodular density in the deep inferior medial aspect of the left breast is not seen at this time. This most likely represents superimposition of tissue. No other significant abnormalities are identified. BI/DIAG MAMM W/CAD, UNILAT IMPRESSION: Stable unilateral diagnostic mammogram. One year follow-up mammogram recommended. (A) ASSESSMENT CATEGORY: BIRADS Category 2: Benign. A letter regarding these results will be sent to the patient by the facility within 30 days. Approximately 10% of breast cancers are not detected by mammography. A normal mammogram should not delay biopsy of a clinically suspicious abnormality. Electronically Signed: Brant Bonds MD at 12:47 EDT ,
== END 2021-06-09 23:59 | disposition home or self-care (01) ==
PROVIDERS: PCP Family Medicine; Visit Provider Student in an Organized Health Care Education/Training Program
DX: R92.2 Inconclusive mammogram (principal)
CPT/HCPCS: 76642; 77065

== ENCOUNTER 2021-09-10 16:22 | Emergency (ER) | payer OTHER, SELFPAY ==
[2021-09-10 16:25] VITALS: BP 135/93; PULSE 87; RESP 20; TEMP 37.1; O2SAT 97; BMI 31.9
--- NOTE | 2021-09-10 16:41 | CT_ITS ---
STUDY: CT ABDOMEN AND PELVIS WITH CONTRAST REASON FOR EXAM: Female, 46 years old. GI bleed -- IV PO Contrast RADIATION DOSAGE (If Supplied By Facility): CTDIvol = ( 16.76 ) mGy, DLP = ( 1228.12 ) mGycm TECHNIQUE: Transaxial images were obtained from the dome of the diaphragm to the symphysis pubis without oral contrast. Oral and amp; IV Gastrografin and amp; 100mL Isovue-300 was administered. Sagittal and coronal images were reconstructed. Individualized dose optimization techniques were used for this CT. COMPARISON: 08/12/2013 FINDINGS: Lung bases clear. Diffuse hepatic steatosis. Unremarkable spleen, pancreas, adrenals, and bilateral kidneys. Status post cholecystectomy. Normal appendix. Bowel loops nonobstructed. No CT evidence of acute enterocolitis. Small fat-containing umbilical hernia. No free air or free fluid. No adenopathy. Minimal vascular constipation. No abdominal aortic aneurysm. Sections through the pelvis demonstrate no adnexal mass. Urinary bladder grossly intact. Mild multilevel thoracolumbar spondylosis. CT/Abdomen/Pelvis WITH Contrast IMPRESSION: No acute finding in the abdomen and pelvis. Diffuse hepatic steatosis. Electronically Signed: Meek Fine MD at 18:55 EDT ,
[2021-09-10 16:53] LABS: Absolute Lymphocyte Count 1.73 X10^3/uL (0.83-4.51); Absolute Neutrophil Count 4.5 X10^3/uL (2.0-7.7); Basophil# 0.03 X10^3/uL; Basophil% 0.4 % (0-1); Eosinophil# 0.14 X10^3/uL; Hematocrit 37.8 % (37-47); Hemoglobin 12.5 g/dL (12.0-15.0); Lymphocyte # 1.73 X10^3/ul (0.83-4.51); Lymphocyte % 24.4 % (19-41); Mean Corp Hgb Conc 33.1 g/dL (32-36); Mean Corpuscular Hgb 29.8 pg (27.0-32.0); Mean Platelet Vol. 8.9 fl (6.2-12.0); Monocyte# 0.66 X10^3/uL; Monocyte% 9.3 % (0-10); NRBC Flagged by Analyzer 0 % (0-5); Neutrophil % 63.5 % (47-70); Platelet Count 328 K/mm3 (150-450); RBC Distribution Width CV 13.1 % (11.6-14.6); RBC Distribution Width SD 42.9 fl (35.1-43.9); White Blood Count 7.1 K/mm3 (4.4-11.0)
[2021-09-10 17:07] LABS: Prothrombin Time (Protime)PT. 12.4 SECONDS (11.7-14.9)
[2021-09-10 17:09] LABS: Partial Thromboplast Time 27.7 Seconds (24.1-36.2)
[2021-09-10] MEDS: 0.9% Normal Saline 1,000 ML 1000 ML IV (17:11)
--- NOTE | 2021-09-10 17:17 | EX.ED.DYSGE1 ---
HPI History of Present Illness Chief Complaint: GI Bleed Informant: patient Onset/Context/Timing Onset: Today Narrative Narrative: Patient presents secondary to bloody stool. She had some abdominal cramping and back cramping earlier today. Patient states she had diarrhea around 2:00 this afternoon and seem to have blood associated with it and very foul odor. She had no further stool since that time. They called PCPs office who recommended she come to the emergency room. She denies history of ulcerative colitis or Crohn's disease. She has never had a colonoscopy. [facility] Medical History Anxiety Asthma Cardiology follow-up encounter Depression Gastric reflux History of edema History of stress test History of ulceration Hypertension Migraine headache Non-smoker Home Medications escitalopram oxalate 10 mg tablet 20 mg PO DAILY 08/12/13 [History Last Taken Unknown] lisinopril 20 mg tablet 20 mg PO QHS 08/12/13 [History Last Taken Unknown] nortriptyline 10 mg capsule 20 mg PO QHS 08/12/13 [History Last Taken Unknown] zolmitriptan 2.5 mg tablet (Zomig) 5 mg PO PRN PRN migraines 08/12/13 [History Last Taken Unknown] albuterol sulfate 90 mcg/actuation aerosol inhaler (ProAir HFA) 1 - 2 puff inhalation Q4H PRN PRN allergry 04/12/15 [History Last Taken 04/19/15 07:00] hydrochlorothiazide 12.5 mg capsule 12.5 mg PO QHS 04/12/15 [History Last Taken Unknown] loratadine 10 mg tablet (Allergy Relief (loratadine)) 10 mg PO PRN PRN ALLERGIES 04/12/15 [History Last Taken Unknown] multivitamin with folic acid 400 mcg tablet (Thera) 1 tab PO DAILY 04/12/15 [History Last Taken Unknown] omeprazole 20 mg capsule,delayed release 20 mg PO DAILY 04/12/15 [History Last Taken 01/28/21] hydrocodone-acetaminophen 5-325mg 5mg-325mg 1 tab PO Q4H PRN pain 5 days #20 tabs 01/19/21 [Rx Last Taken Unknown] hydrocodone-acetaminophen 5-325mg 5mg-325mg 1 tab PO Q6H PRN pain 7 days #28 tabs 01/29/21 [Rx Last Taken Unknown] Allergy/AdvReac Type Severity Reaction Status Date / Time No Known Allergies Allergy Verified 09/10/21 16:28 Surgical History History of ankle surgery History of carpal tunnel release of both wrists History of cholecystectomy History of endometrial ablation Hx of umbilical hernia repair Social History Smoking Status: Never smoker ROS ROS ED Constitutional Constitutional ED: Denies chills or fever(s) Eyes Eyes: Denies change in vision or discharge from eye(s) ENT ENT ED: Denies discharge from eye(s), rhinorrhea or sore throat Cardiovascular Cardiovascular: Denies chest pain or palpitations Respiratory/Chest Respiratory/Chest: Denies cough or dyspnea Gastrointestinal Gastrointestinal: Reports abdominal pain, diarrhea and melena; Denies nausea or vomiting Genitourinary Genitourinary ED: Denies difficulty urinating or dysuria Musculoskeletal Musculoskeletal: Reports back pain; Denies extremity pain Integumentary Denies Abrasions or rash Neurologic Neurologic: Denies headache(s) or weakness Psychiatric Psychiatric: Denies anxiety or depression Allergic/Immunologic Allergic/Immunologic ED: Denies lip swelling or urticaria EXAM Physical Exam Const Vital Signs: 09/10/21 16:25 Temperature 98.7 F Temperature Source Temporal Pulse Rate 87 Respiratory Rate 20 H Blood Pressure 135/93 H Blood Pressure Mean 107 Pulse Ox 97 Oxygen Delivery Method Room Air Positive well nourished and well developed General Appearance ED: well developed HEENT Reports normocephalic and head/scalp atraumatic Eyes PERRL and EOMs intact bilaterally Neck supple Chest Wall inspection of chest normal and palpation of chest normal Resp normal respiratory effort and clear to auscultation bilaterally Cardio regular rate and regular rhythm GI normal to inspection, nondistended, normoactive bowel sounds GI Narrative: Small external hemorrhoids with no significant inflammation or sign of recent bleeding. Palpation: soft Back/Spine no CVA tenderness Extremity normal to inspection Neuro oriented x3 and no sensory deficits noted Sensorium / Orientation: alert Motor Exam: strength 5/5 throughout Psych mental status grossly normal Skin no rashes or lesions noted MDM MDM MDM Narrative Medical decision making narrative: Lab work obtained along with CT scan of the abdomen and pelvis. Patient given IV fluids. Lab Data Attestation: I reviewed the patient's lab results. Labs: Laboratory Results - last 24 hr 09/10/21 09/10/21 09/10/21 16:40 16:40 16:40 WBC 7.1 RBC 4.20 Hgb 12.5 Hct 37.8 MCV 90.0 MCH 29.8 MCHC 33.1 RDW Std Deviation 42.9 RDW Coeff of Sonja 13.1 Plt Count 328 MPV 8.9 Immature Gran % (Auto) 0.400 Neut % (Auto) 63.5 Lymph % (Auto) 24.4 Tompkins % (Auto) 9.3 Eos % (Auto) 2.0 Baso % (Auto) 0.4 Absolute Neuts (auto) 4.5 Absolute Lymphs (auto) 1.73 Nucleated RBC % 0 PT 12.4 INR 1.0 APTT 27.7 Sodium 137 Potassium 3.3 L Chloride 102 Carbon Dioxide 29.0 Anion Gap 6 BUN 13 Creatinine 0.80 Estim Creat Clear Calc 80.51 Est GFR (MDRD) Af Amer 98 Est GFR (MDRD) Non-Af 81 BUN/Creatinine Ratio 16.1 Glucose 97 Calcium 9.4 Total Bilirubin 0.20 Direct Bilirubin 0.07 AST 42 H ALT 65 H Alkaline Phosphatase 66 Total Protein 7.8 Albumin 3.8 Globulin 4.0 Radiography Diagnostic Testing: Clinical Impression(s) from Imaging Studies Abdomen/Pelvis CT 09/10/21 16:41 IMPRESSION: No acute finding in the abdomen and pelvis. Diffuse hepatic steatosis. Electronically Signed: Meek Fine MD at 18:55 EDT Reading Location ID and State: [facility] / [place] Tel , Service support , Treatment and Re-Evaluation Narrative: CBC is unremarkable with normal hemoglobin. Chemistry studies normal with normal BUN. Potassium slightly low at 3.3. CT scan of the abdomen pelvis shows no acute findings. Stool guaiac test was negative. On repeat evaluation patient resting comfortably. She does report some mild abdominal cramping and will be given a dose of Bentyl. She is given return instructions and will continue to monitor her symptoms at home. Discharge Plan Triage Chief Complaint: GI Bleed ED Provider: Vicenta Valencia Dx/Rx/DC Orders Clinical Impression: Abdominal pain, Diarrhea Instructions: ED Abdominal Pain Unkn Cause Fem, ED Diarrhea, Unknown Cause Prescriptions: No Action lisinopril 20 MG tablet 20 mg PO QHS zolmitriptan [Zomig] 2.5 MG tablet 5 mg PO PRN PRN (Reason: migraines) nortriptyline 10 MG capsule 20 mg PO QHS escitalopram oxalate 10 MG tablet 20 mg PO DAILY hydrochlorothiazide 12.5 MG capsule 12.5 mg PO QHS omeprazole 20 MG capsule 20 mg PO DAILY albuterol sulfate [ProAir HFA] 1 PUFF inhaler 1 - 2 puff inhalation Q4H PRN PRN (Reason: allergry) loratadine [Allergy Relief (loratadine)] 10 MG tablet 10 mg PO PRN PRN (Reason: ALLERGIES) multivitamin with folic acid [Thera] 1 TABLET tablet 1 tab PO DAILY hydrocodone-acetaminophen 5-325 mg tablet 1 tab PO Q4H PRN (Reason: pain) 5 Days Qty: 20 0RF hydrocodone-acetaminophen 5-325 mg tablet 1 tab PO Q6H PRN (Reason: pain) 7 Days Qty: 28 0RF Primary Care Provider: Riky Harris Referrals: Riky Harris MD [Primary Care Provider] - As Needed Disposition Disposition: Home, Self Care
[2021-09-10 17:19] LABS: AST(SGOT) 42 U/L (15-37); Alanine Aminotransfer ALT/SGPT 65 U/L (13-56); Albumin, Serum 3.8 g/dL (3.2-5.0); Alkaline Phosphatase 66 U/L (45-117); Anion Gap 6 (5-15); BUN 13 mg/dL (7-18); BUN/Creat Ratio 16.1 RATIO (10-20); Bilirubin, Direct 0.07 mg/dL (0.00-0.30); Calcium,Total 9.4 mg/dL (8.5-10.1); Chloride 102 mmol/L (98-107); EST Glomerular Filtration Rate 81 mL/min (>60); Est Glom Filt Rate - Afr Amer 98 mL/min (>60); Estimated Creatinine Clearance 80.51 ml/min; Glucose 97 mg/dL (74-106); Potassium 3.3 mmol/L (3.5-5.1); Protein, Total 7.8 g/dL (6.4-8.2); Sodium Level 137 mmol/L (136-145)
[2021-09-10] MEDS: 0.9% Normal Saline 1,000 ML 150 ML IV (19:11)
[2021-09-10] MEDS: Dicyclomine 10 MG Capsule 20 MG PO (19:17)
== END 2021-09-10 19:34 | disposition home or self-care (01) ==
PROVIDERS: Emergency Provider Emergency Medicine; PCP Family Medicine; Visit Provider Emergency Medicine
DX: R10.9 Unspecified abdominal pain (principal); R19.7 Diarrhea, unspecified
CPT/HCPCS: 74177; 80048; 80076; 82274; 85025; 85610; 85730; 96360; 99284; J7030; Q9967; A4216

== ENCOUNTER → 2022-06-12 | Outpatient (CLI) | payer OTHER, SELFPAY ==
--- NOTE | 2022-06-12 14:09 | BI_ITS ---
MAMMOGRAPHY - BILATERAL SCREENING 3-D TOMOSYNTHESIS REASON FOR EXAM: Female, 47 years old. Screening PERTINENT HISTORY: No significant family history. TECHNIQUE: 2-D mammograms and 3-D Tomosynthesis of the breast (s) were performed. CAD was performed. COMPARISON: 05/10/2018 FINDINGS: The breast composition is composed of scattered fibroglandular density. Scattered benign calcifications are seen. No dense spiculated masses or suspicious microcalcifications are identified. No architectural distortion is identified. There is no skin thickening or retraction. There has been no significant change since the prior study. BI/SCRN MAMM (CAD)W/JULIANA BILAT IMPRESSION: No mammographic signs of malignancy. Routine yearly mammograms recommended. ASSESSMENT CATEGORY: BIRADS Category 1: Negative. A letter regarding these results will be sent to the patient by the facility within 30 days. FOLLOW UP RECOMMENDATION: Yearly follow up mammogram recommended. (A) Approximately 10% of breast cancers are not detected by mammography. A normal mammogram should not delay biopsy of a clinically suspicious abnormality. Electronically Signed: Kody Payton MD at 7:52 EDT ,
== END | disposition home or self-care (01) ==
LOC: OPBI 14:08
PROVIDERS: PCP Family Medicine; Referring Provider Nurse Practitioner Family; Visit Provider Nurse Practitioner Family
DX: Z12.31 Encounter for screening mammogram for malignant neoplasm of breast (principal)
CPT/HCPCS: 77063; 77067

== ENCOUNTER → 2023-03-15 | Outpatient (CLI) | payer OTHER, SELFPAY ==
--- NOTE | 2023-03-15 16:18 | RAD_ITS ---
STUDY: X-RAY - LEFT ELBOW REASON FOR EXAM: Female, 47 years old. PAIN TECHNIQUE: 3 view(s) of the elbow. COMPARISON: None. FINDINGS: Normal visualized humerus, radius and ulna. Normal radiocapitellar and ulnotrochlear articulations. The soft tissue structures are unremarkable. There is no demonstrated fracture. RAD/Elbow min 3 Views IMPRESSION: Unremarkable x-ray examination of the elbow. Electronically Signed: Clara Dupont MD at 16:41 EST ,
--- OUTSIDE RECORDS SUMMARY | 2023-03-15 17:28 | XMS RPT_ITS | CCD ---
Author Name Unknown Address [address] [place] [address] Organization [facility] Care Team Providers Care Referral Manager Name Role Phone Reynaldo Carr Unavailable [phone] Jeff Carter Unavailable Unavailable Jeff Carter Unavailable Unavailable Jeff Carter Unavailable Unavailable Jeff Carter Unavailable Unavailable JEFF CARTER Unavailable Unavail able REYNALDO CARR Unavailable Unavail able RAUL, JEFF ANDERSON Unavailable Unavail able REYNALDO CARR Unavailable Unavail able JEFF CARTER Unavailable Unavail able REYNALDO CARR Unavailable Unavail able JEFF CARTER Unavailable Unavail able REYNALDO CARR Unavailable Unavail able Allergies Allergy Classification Reported Allergen(s) Allergy Type Date of Onset Reaction(s) Facility (2 sources) naproxen; Translations: [NAPROXEN] Drug Allergy 11-04-2015 Shortness Of Breath [facility] Medications Current Medications Medication Drug Class(es) Dates Sig (Normalized) Sig (Original) escitalopram 10 mg oral tablet (1 source) Serotonin Reuptake Inhibitor Start: 07-23-19 16 escitalopram oxalate (LEXAPRO) 10 MG tablet hydroCHLOROthiazide 12.5 mg oral tablet (1 source) Thiazide Diuretic Start: 07-23-19 16 hydrochlorothiazide (HYDRODIURIL) 12.5 MG tablet lisinopril 20 mg oral tablet (1 source) Angiotensin Converting Enzyme Inhibitor Start: 07-23-19 16 lisinopril (PRINIVIL,ZESTRIL) 20 MG tablet nortriptyline 10 mg oral capsule (1 source) Tricyclic Antidepressant Start: 07-23-19 16 nortriptyline (PAMELOR) 10 MG capsule 2 (two) times a day . 07/23/2015 Active ZOLMitriptan 5 mg disintegrating oral tablet (1 source) Serotonin-1b and Serotonin-1d Receptor Agonist ZOLMitriptan (ZOMIG-ZMT) 5 MG disintegrating tablet Take 5 mg by mouth as needed for migraine. Active Problems Active Problems Problem Classification Problem Date Documented Da te Episodic/Chronic Other nervous system disorders (3 sources) Carpal tunnel syndrome, left upper limb; Translations: [Carpal tunnel syndrome of left wrist] Onset: 08-07-2015 11-22-2017 Chronic Past or Other Problems Problem Classification Problem Date Documented Da te Episodic/Chronic Other aftercare (1 source) Surgical follow-up; Translations: [Surgery follow-up] Onset: 09-23-2015 09-23-2015 Episodic Unclassified (1 source) Carpal tunnel syndrome of left wrist Results Test Name Value Interpretation Reference Range Facil ity Encounters Encounter Date Encounter Type Care Provider Facility Start: 01-12-2018 End: 01-12-2018 Patient encounter procedure JEFF WATTSFROYTREV CARTER [facility] Start: 01-07-2018 End: 01-07-2018 Patient encounter procedure JEFF WATTSJOCELIN CARTER [facility] Start: 12-30-2017 End: 01-05-2018 Patient encounter procedure JEFF REYNALDO CARTER [facility] Start: 12-30-2017 End: 12-30-2017 Patient encounter Jeff Carter Facility:[place] Start: 12-23-2017 Patient encounter Jeff Carter Faci [place]ity:[place] Start: 11-22-2017 End: 11-22-2017 Patient encounter procedure JEFF CARTER [facility] Start: 11-22-2017 End: 11-22-2017 Office outpatient visit 10 minutes Jeff Carter Work Phone: [facility] Plan of Treatment Date Care Activity Detail Author Start: 11-06-2017 Influenza vaccination SEQUENTI AL INFLUENZA VACCINE (#1) [facility] Start: 1975 Screening for malign ant neoplasm of cervix PAP SMEAR [facility] Start: 1973 Tetanus vaccination TETANUS EVERY 10 YR [facility] Payers Date Payer Category Payer Unknown [id number] 1975 Unknown [id number] [id number] 1975 Unknown [id number] 2.16.8 [id number] 1973 Unknown [id number] 2.16.8 [id number] 1973 Unknown [id number] 2.16.8 [id number] Unknown [id number] Social History Date Type Detail Facility Start: 11-22-2017 Tobacco smoking status NHIS Never sm mner [facility] Diagnosis Carpal tunnel syndrome of le ft wrist - Primary Summary Purpose Family History No Family History Records FoundNo Family History Records Found Advance Directives No Advanced Directives Records FoundNo Advanced Directives Records Found Procedure Findings Note [facility] [place], [place] [address] [place] [facility] [id number] [id number] 1975DATE 12/30/2017OPERATIVE REPORT / PROCEDURE NOTESURGEON JEFF CRATER, MIRELLAREOPERATIVE DIAGNOSISCarpal tunnel syndrome.POSTOPERATIVE DIAGNOSISCarpal tunnel syndrome.OPERATIONOpen decompression median nerve, left wrist.ASSISTANTALEJANDRINA Beaver.ANESTHESIAGeneral with pneumatic tourniquet.FINDINGSThe patient is a 42-year-old female with carpal tunnel syndrome. She haspositive electrical studies and has failed conservative management. At thetime of surgery, she had a very thickened transverse carpal ligament and someflattening and narrowing of the nerve beneath it.OPERATIVE TECHNIQUEUnderstanding the risks, complications, potential benefits, and agreeing toproceed with surgery, the patient was brought into the operating theater, andunderwent general anesthetic and endotracheal intubation. Pneumatictourniquet was applied to the left proximal arm and set at 250 mmHg. (more content not included)... Additional Source Comments INFORMATION SOURCE (unrecogn ized section and content) DATE CREATED AUTHOR AUTHOR'S TL ATWILLA 02/13/2018 [facility] FOR RECORDS PERTAINING TO PATIENTS WHO ARE OR HAVE BEEN ENROLLED IN A CHEMICAL DEPENDENCY/SUBSTANCEABUSE PROGRAM, SOME INFORMATION MAY BE OMITTED. This clinical summary was aggregated from multiple sources. Caution should be exercised in using it in the provision of clinical care. This summary normalizes information from multiple sources, and as a consequence, information in this document may materially change the coding, format and clinical context of patient data. In addition, data may be omitted in some cases. CLINICAL DECISIONS SHOULD BE BASED ON THE PRIMARY CLINICAL RECORDS. [facility] [employer] [facility]. provides no warranty or guarantee of the accuracy or completeness of information in this document.
== END | disposition home or self-care (01) ==
LOC: MTRAD 16:16
PROVIDERS: PCP Family Medicine; Referring Provider Family Medicine; Visit Provider Family Medicine
DX: M25.522 Pain in left elbow (principal)
CPT/HCPCS: 73080

== ENCOUNTER → 2023-03-17 | Outpatient (CLI) | payer OTHER, SELFPAY ==
[2023-03-17 10:13] LABS: Mucous, Urine 0 SEEN /hpf (<or=2+)
--- OUTSIDE RECORDS SUMMARY | 2023-03-17 10:48 | XMS RPT_ITS | CCD ---
Author Name Unknown Address [address] [place] [address] Organization [facility] Care Team Providers Care Manager Security And Safety Name Role Phone Reynaldo Carr Unavailable [phone] Jeff Carter Unavailable Unavailable Jeff Carter Unavailable Unavailable Jeff Carter Unavailable Unavailable Jeff Carter Unavailable Unavailable JEFF CARTER Unavailable Unavail able REYNALDO CARR Unavailable Unavail able RAUL, JEFF ANDERSON Unavailable Unavail able REYNALDO CARR Unavailable Unavail able JEFF CARTER Unavailable Unavail able REYNALDO CARR Unavailable Unavail able JEFF CARETR Unavailable Unavail able REYNALDO CARR Unavailable Unavail able Allergies Allergy Classification Reported Allergen(s) Allergy Type Date of Onset Reaction(s) Facility (2 sources) naproxen; Translations: [NAPROXEN] Drug Allergy 11-04-2015 Shortness Of Breath [facility] Medications Current Medications Medication Drug Class(es) Dates [...] 01-12-2018 Patient encounter procedure JEFF WATTSFROYTREV CARTER [facility] Start: 01-07-2018 End: 01-07-2018 Patient encounter procedure JEFF WATTSJOCELIN CARETR [facility] Start: 12-30-2017 End: 01-05-2018 Patient encounter procedure JEFF REYNALDO CARTER [facility] Start: 12-30-2017 End: 12-30-2017 Patient encounter Jeff Carter Facility:[facility] Start: 12-23-2017 Patient encounter Jeff Carter Faci lity:[facility] Start: 11-22-2017 End: 11-22-2017 Patient encounter procedure JEFF CARTER [facility] Start: 11-22-2017 End: 11-22-2017 Office outpatient visit 10 minutes Jeff Carter Work Phone: [facility] [place] Plan of Treatment Date Care Activity Detail Author Start: 11-06-2017 Influenza vaccination SEQUENTI AL INFLUENZA VACCINE (#1) [facility] Start: 1975 Screening for malign ant neoplasm of cervix PAP SMEAR [facility] Start: 1975 Tetanus vaccination TETANUS EVERY 10 YR [facility] Payers Date Payer Category Payer Unknown [id number] 1975 Unknown [id number] 2.16.8 [id number] 1973 Unknown [id number] 2.16.8 [id number] 1973 Unknown [id number] 2.16.8 [id number] 1973 Unknown [id number] 2.16.8 [id number] Unknown [id number] Social History Date Type Detail Facility Start: 11-22-2017 Tobacco smoking status NHIS Never sm orer [facility]igned At [facility] Diagnosis Carpal tunnel syndrome of le ft wrist - Primary Summary Purpose Family History No Family History Records FoundNo Family History Records Found Advance Directives No Advanced Directives Records FoundNo Advanced Directives Records Found Procedure Findings Note [facility] [place], [place] [address] [place] [facility] [id number] 1975DATE 12/30/2017OPERATIVE REPORT / PROCEDURE NOTESURGEON JEFF CARTER, MIRELLAREOPERATIVE DIAGNOSISCarpal tunnel syndrome.POSTOPERATIVE DIAGNOSISCarpal tunnel syndrome.OPERATIONOpen [...] DATE CREATED AUTHOR AUTHOR'S TL ATWILLA 02/13/2018 [facility] FOR RECORDS PERTAINING TO PATIENTS WHO ARE [...] BE BASED ON THE PRIMARY CLINICAL RECORDS. [facility] [employer] [facility]. provides no warranty or guarantee of the accuracy or completeness of information in this document.
[2023-03-17 12:32] LABS: Color, Urine Yellow (Yellow); Glucose, Dipstick Normal (Normal); Ketone-Dipstick Negative (Negative); Leukocyte Esterase-Dipstick 500 /ul (Negative); Nitrite-Dipstick Negative (Negative); Occult Blood-Urine 10 /ul (Negative); Protein-Dipstick Negative (Negative); Urine Bilirubin Dipstick Negative (Negative); Urine Clarity Sl. Cloudy (Clear); Urine Urobilinogen Normal (Normal)
[2023-03-17 12:42] LABS: White Blood Cells 10-25 SEEN /hpf (0-5)
[2023-03-17 12:43] LABS: Bacteria RARE /hpf (None Seen); Red Blood Cells-Urine 0-5 SEEN /hpf (0-5); Squamous Epithelial Cells - UA 5-10 SEEN /hpf (5-10)
[2023-03-17 13:08] LABS: Vitamin D,25 Hydroxy 32.8 ng/mL
[2023-03-17 13:31] LABS: ALB/GLOB Ratio 0.8 RATIO (0.9-2.4); AST(SGOT) 111 U/L (15-37); Alanine Aminotransfer ALT/SGPT 115 U/L (13-56); Albumin, Serum 3.4 g/dL (3.2-5.0); Alkaline Phosphatase 88 U/L (45-117); Anion Gap 7 (5-15); BUN 13 mg/dL (7-18); BUN/Creat Ratio 17.1 RATIO (10-20); Calcium,Total 9.3 mg/dL (8.5-10.1); Chloride 102 mmol/L (98-107); Cholesterol 171 mg/dL (200); Creatinine, Serum 0.76 mg/dL (0.55-1.02); EST Glomerular Filtration Rate 86 mL/min (>60); Est Glom Filt Rate - Afr Amer 104 mL/min (>60); Globulin 4.1 g/dL (2.2-4.2); Glucose 123 mg/dL (74-106); High Density Lipoprotein 57 mg/dL; Potassium 3.8 mmol/L (3.5-5.1); Protein, Total 7.5 g/dL (6.4-8.2); Sodium Level 135 mmol/L (136-145); Thyroid Stim Hormone (TSH) 2.48 uIU/mL (0.358-3.74); Triglycerides 141 mg/dL; Very Low Density Lipoprotein 28 mg/dL (5-40)
== END | disposition home or self-care (01) ==
LOC: MFPLAB 10:11
PROVIDERS: PCP Family Medicine; Visit Provider Family Medicine
DX: R73.01 Impaired fasting glucose (principal); E55.9 Vitamin D deficiency, unspecified; R39.15 Urgency of urination
CPT/HCPCS: 36415; 80053; 80061; 81001; 82306; 84443; 87086; 87088

== ENCOUNTER → 2023-06-14 | Outpatient (CLI) | payer OTHER, SELFPAY ==
--- NOTE | 2023-06-14 08:43 | BI_ITS ---
MAMMOGRAPHY - BILATERAL SCREENING REASON FOR EXAM: Female, 48 years old. Routine annual screening examination. PERTINENT HISTORY: Aunt with breast cancer. TECHNIQUE: Digital bilateral breast juliana (3D mammographic acquisition) in the CC and MLO projections. 2-D mediolateral oblique (MLO) and craniocaudad (CC) views of both breasts were obtained. CAD: Full Field Digital Mammography with Computer Added Detection was performed. COMPARISON: Comparison is made with prior examination June 12, 2022 and June 09, 2021. FINDINGS: Breast Composition: The breasts are heterogeneously dense, which may obscure small masses. There are no dominant masses or suspicious calcifications. Stable 1.3 cm x 1.8 cm well-defined nodule in the deep inferior medial aspect of the left breast. The patient will be recalled for additional views prior to sonogram.. No other significant abnormalities are identified. BI/SCRN MAMM (CAD)W/JULIANA BILAT IMPRESSION: Stable bilateral screening mammogram. Persistent 1.3 cm x 1.8 on solid well-defined nodule in the deep inferior medial aspect of the left breast as described. The patient will be recalled for additional views including 90 degree lateral and compression spot views. Recall Side: Left Breast ASSESSMENT CATEGORY: BIRADS Category 0: Incomplete. Need additional imaging evaluation. A letter regarding these results will be sent to the patient by the facility within 30 days. Approximately 10% of breast cancers are not detected by mammography. A normal mammogram should not delay biopsy of a clinically suspicious abnormality. [id number] Electronically Signed: Brant Bonds MD at 10:04 EDT ,
== END | disposition home or self-care (01) ==
LOC: OPBI 08:43
PROVIDERS: PCP Family Medicine; Referring Provider Nurse Practitioner Family; Visit Provider Nurse Practitioner Family
DX: Z12.31 Encounter for screening mammogram for malignant neoplasm of breast (principal)
CPT/HCPCS: 77063; 77067

== ENCOUNTER → 2023-06-17 | Outpatient (CLI) | payer OTHER, SELFPAY ==
--- NOTE | 2023-06-17 09:03 | BI_ITS ---
MAMMOGRAPHY - UNILATERAL DIAGNOSTIC: LEFT BREAST REASON FOR EXAM: Female, 48 years old. Abnormal screening mammogram. PERTINENT HISTORY: TECHNIQUE: Compression spot views in the mediolateral oblique and craniocaudad projections were obtained. CAD: Full Field Digital Mammography with Computer Added Detection was performed. COMPARISON: Comparison is made with prior study dated June 14, 2023. FINDINGS: Breast Composition: The breasts are heterogeneously dense, which may obscure small masses. There is a 1.8 cm x 0.9 cm relatively well-defined nodule in the slightly upper medial portion of the left breast. There is also evidence of a 5.5 mm x 3.3 mm well-defined nodule in the inferior medial aspect of the left breast. Correlation with ultrasound is recommended. No other significant abnormalities are identified. BI/DIAG MAMM W/CAD, UNILAT IMPRESSION: Persistent nodular densities in the left breast as described. Correlation with ultrasound is recommended. ASSESSMENT CATEGORY: BIRADS Category 0: Incomplete. Need additional imaging evaluation. A letter regarding these results will be sent to the patient by the facility within 30 days. Approximately 10% of breast cancers are not detected by mammography. A normal mammogram should not delay biopsy of a clinically suspicious abnormality. Electronically Signed: Brant Bonds MD at 10:24 EDT ,
--- NOTE | 2023-06-17 09:03 | US_ITS ---
STUDY: ULTRASOUND BREAST - LEFT REASON FOR EXAM: Female, 48 years old. Abnormal screening mammogram. TECHNIQUE: Axial and longitudinal images of the LEFT breast were performed with a high resolution ultrasound transducer. # OF IMAGES: 38 COMPARISON: Comparison is made with prior mammogram dated June 14, 2023 and June 17, 2023. FINDINGS: LEFT Breast: The inferior half of the left breast was examined with ultrasound. At the 7:00 position of the breast at 10 cm from the nipple, there is a 1.1 cm x 0.4 cm x 0.3 cm hypoechoic nodule with a fatty hilum in keeping with a lymph node. A similar appearing nodular density at the 6:00 position of the breast at 7 cm from the nipple is visualized. This measures 1 cm x 1 cm x 0.3 cm. US/Breast Limited Unilateral IMPRESSION: Findings suggestive of 2, benign appearing lymph nodes correspond to the mammographic findings. ASSESSMENT CATEGORY: BIRADS Category 2: Benign. A letter regarding these results will be sent to the patient by the facility within 30 days. Electronically Signed: Brant Bonds MD at 14:46 EDT ,
== END | disposition home or self-care (01) ==
LOC: OPBI 09:00
PROVIDERS: PCP Family Medicine; Referring Provider Nurse Practitioner Family; Visit Provider Nurse Practitioner Family
DX: N63.0 Unspecified lump in unspecified breast (principal)
CPT/HCPCS: 76642; 77065

== ENCOUNTER 2023-07-03 16:58 | Emergency (ER) | payer OTHER, SELFPAY ==
[2023-07-03 16:59] VITALS: BP 167/105; PULSE 103; RESP 16; TEMP 36.7; O2SAT 96; BMI 33.9
[2023-07-03 17:01] VITALS: BP 167/105; PULSE 111; RESP 16; TEMP 36.7; O2SAT 96
[2023-07-03] MEDS: predniSONE 20 MG Tablet 60 MG PO (17:20)
[2023-07-03] MEDS: diazePAM 5 MG Tablet PO (17:20)
--- NOTE | 2023-07-03 17:32 | RAD_ITS ---
STUDY: X-RAY - LUMBAR SPINE REASON FOR EXAM: Female, 48 years old. pain TECHNIQUE: 2 view(s) of the lumbar spine were obtained. COMPARISON: None FINDINGS: Normal lumbar lordosis. Mild levoscoliosis centered at L3. 2 mm of anterolisthesis of L4 on L5. There is multilevel endplate spondylosis of the lumbar vertebrae. There is multi-level degenerative disc disease with multi-level disc space narrowing. There is multilevel facet hypertrophy in the lower lumbar spine. The soft tissue structures are unremarkable. RAD/Lumbar Spine 2 or 3 Views IMPRESSION: Mild levoscoliosis with degenerative disc disease. MRI may be useful. Electronically Signed: Johnathon Wilhelm MD at 18:21 EDT ,
--- NOTE | 2023-07-03 17:36 | ED.VIS.BACK ---
HPI History of Present Illness Chief Complaint: Back Informant: patient and spouse/S.O. Narrative Narrative: Worsening right lower back pain yesterday. Symptoms for proxy 10 days ago. 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 She felt back pain has been using Tylenol or Motrin. She has had issues with her back in the past treated symptomatic at home. She went to the ER once maybe 2 years ago received muscle relaxers that helped. She states it worsened yesterday worse with any bending sitting. There is some tingling to the right gluteal region. No loss of bowel or bladder control. No saddle anesthesia. Last took Motrin 3 PM 2 hours ago Tylenol taken at noon. Patient has no allergies. She would have's spasmodic pains that would worsen. Prior similar symptoms: Yes and With Prior Back Pain PFSH PFSH Medical History Anxiety Asthma Benign essential tremor Cardiology follow-up encounter Depression Gastric reflux History of edema History of stress test History of ulceration Hypertension Migraine headache Non-smoker no medical history Home Medications escitalopram oxalate 10 mg tablet 20 mg PO DAILY 08/12/13 [History Last Taken Unknown] lisinopril 20 mg tablet 20 mg PO QHS 08/12/13 [History Last Taken Unknown] nortriptyline 10 mg capsule 20 mg PO QHS 08/12/13 [History Last Taken Unknown] albuterol sulfate 90 mcg/actuation aerosol inhaler (ProAir HFA) 1 - 2 puff inhalation Q4H PRN PRN allergry 04/12/15 [History Last Taken 04/19/15 07:00] hydrochlorothiazide 12.5 mg capsule 12.5 mg PO QHS 04/12/15 [History Last Taken Unknown] loratadine 10 mg tablet (Allergy Relief (loratadine)) 10 mg PO PRN PRN ALLERGIES 04/12/15 [History Last Taken Unknown] multivitamin with folic acid 400 mcg tablet (Thera) 1 tab PO DAILY 04/12/15 [History Last Taken Unknown] omeprazole 20 mg capsule,delayed release 20 mg PO DAILY 04/12/15 [History Last Taken 01/28/21] diazepam 5 mg tablet 5 mg PO Q8 PRN Muscle Spasm #20 tabs 07/03/23 [Rx Last Taken Unknown] gabapentin 300 mg capsule 300 mg PO QHS #30 caps 07/03/23 [Rx Last Taken Unknown] prednisone 20 mg tablet 60 mg (3 x 20 mg) PO DAILY #12 TABLETS 07/03/23 [Rx Last Taken Unknown] rizatriptan 5 mg tablet 5 mg PO Q2H migraine 07/03/23 [History Last Taken Unknown] Allergy/AdvReac Type Severity Reaction Status Date / Time No Known Allergies Allergy Verified 07/03/23 17:02 Surgical History History of ankle surgery History of carpal tunnel release of both wrists History of cholecystectomy History of endometrial ablation Hx of umbilical hernia repair Social History Smoking Status: Never smoker ROS ROS ED Constitutional Constitutional ED: Denies chills, fever(s) or sweats Eyes Eyes: Denies change in vision ENT ENT ED: Denies dysphagia or sore throat Cardiovascular Cardiovascular: Denies chest pain, leg edema, palpitations or racing heartbeat Respiratory/Chest Respiratory/Chest: Denies cough, dyspnea or dyspnea on exertion Gastrointestinal Gastrointestinal: Denies abdominal pain, diarrhea, nausea or vomiting Genitourinary Genitourinary ED: Denies dysuria, hematuria or urinary frequency Musculoskeletal Musculoskeletal: Reports back pain; Denies extremity pain or neck pain Integumentary Denies rash or wounds Neurologic Neurologic: Denies headache(s), paresthesias or weakness EXAM Physical Exam Const Vital Signs: 07/03/23 16:59 07/03/23 17:01 07/03/23 18:03 Temperature 98.1 F 98.1 F Temperature Source Temporal Temporal Pulse Rate 103 H 111 H 78 Respiratory Rate 16 16 16 Blood Pressure 167/105 H 167/105 H 138/79 H Blood Pressure Mean 125 125 98 Pulse Ox 96 96 99 Oxygen Delivery Method Room Air Room Air Room Air Positive well nourished and well developed Constitutional Narrative: Standing bedside in position of comfort. Nontoxic General Appearance ED: well developed HEENT Reports moist mucous membranes normocephalic and atraumatic Eyes PERRL, EOMs intact bilaterally and conjunctivae normal General Eye ED: Yes normal appearance of both eyes Neck no lymphadenopathy and supple General: Negative for tenderness Chest Wall Chest: Negative for tenderness Resp normal respiratory effort and normal air movement Effort and Inspection: symmetric chest movement; Negative for respiratory distress Cardio regular rate, regular rhythm and no murmurs Peripheral Pulses: pulses 2+ throughout GI normal to inspection, nondistended, normoactive bowel sounds and non-tender Palpation: Negative for guarding or rebound tenderness present Back/Spine no CVA tenderness Back/Spine Narrative: No midline tenderness of thoracic or lumbar reproducible right paralumbar tenderness. Extremity normal to inspection General Extremety ED: Negative for edema or tenderness General Extremity: Negative for edema Neuro oriented x3 and no sensory deficits noted Sensorium / Orientation: awake and alert Skin no rashes or lesions noted and no wounds MDM MDM MDM Narrative Medical decision making narrative: Interventions / MDM: Differential diagnosis: Sciatica, lumbar strain, disc herniation Diagnosis considered but do not suspect: No cauda equina symptoms My EKG interpretation: N/A Imaging independently reviewed and interpreted by myself: Lumbar spine 2 views: Multilevel spondylolisthesis. Mild space marrow more prominent L4-L5 area. No fractures. External documents reviewed: N/A Test considered but not ordered:N/A ED course: Patient without cauda equina symptoms history concerns for lumbar strain with sciatica symptoms with her reported worsening symptoms with flexion possible concerns for herniation causing peripheral impingement. Recently took her NSAIDs, will dose with prednisone, gabapentin with neuropathic pain and started on Valium. LS-spine x-ray ordered for further evaluation. 1830: X-ray with mild anterior spondylolisthesis L4-L5 per radiology 2 mm. She had no radicular pain. Ambulated the patient myself, after getting up she is able to walk. Will continue symptom control. She has Motrin and Tylenol at home. Prescription for steroids muscle relaxer and gabapentin sent to pharmacy. She will follow-up with her PCP. All questions were answered. Re-evaluation: stable Disposition discussed with patient/family/significant other: Patient and significant other Case discussed with consulting clinician: N/A This note was generated with [employer] dictation software. It may contain incorrect words, spelling, and punctuation that were not noted in checking the note before signing. Radiography Diagnostic Testing: Clinical Impression(s) from Imaging Studies Lumbar Spine X-Ray 07/03/23 17:32 IMPRESSION: Mild levoscoliosis with degenerative disc disease. MRI may be useful. Electronically Signed: Johnathon Wilhelm MD at 18:21 EDT , Discharge Plan Triage Chief Complaint: Back ED Provider: Brandon Shen Dx/Rx/DC Orders Clinical Impression: Sciatica of right side, Lumbar radiculopathy Instructions: Understanding Lumbar Radiculopathy, ED Sciatica Prescriptions: New prednisone 20 mg tablet 60 mg PO DAILY Qty: 12 0RF Rx Instructions: next dose 07/04/23 gabapentin 300 mg capsule 300 mg PO QHS Qty: 30 0RF diazepam [diazepam] 5 mg tablet 5 mg PO Q8 PRN (Reason: Muscle Spasm) Qty: 20 0RF No Action lisinopril 20 MG tablet 20 mg PO QHS nortriptyline 10 MG capsule 20 mg PO QHS escitalopram oxalate 10 MG tablet 20 mg PO DAILY hydrochlorothiazide 12.5 MG capsule 12.5 mg PO QHS omeprazole 20 MG capsule 20 mg PO DAILY albuterol sulfate [ProAir HFA] 1 PUFF inhaler 1 - 2 puff inhalation Q4H PRN PRN (Reason: allergry) loratadine [Allergy Relief (loratadine)] 10 MG tablet 10 mg PO PRN PRN (Reason: ALLERGIES) multivitamin with folic acid [Thera] 1 TABLET tablet 1 tab PO DAILY rizatriptan 5 mg tablet 5 mg PO Q2H Primary Care Provider: Reynaldo Harris Referrals: Reynaldo Harris MD [Primary Care Provider] - 3-5 Days Activity Restrictions/Additional Instructions: X-ray with degenerative changes. Symptoms concerning more for L4 radiculopathy on the right side. Continue Tylenol Motrin, prescription medications as prescribed. Follow-up with your doctor. Disposition Disposition: Home, Self Care
[2023-07-03] MEDS: Gabapentin 300 MG Capsule PO (17:44)
[2023-07-03 18:03] VITALS: BP 138/79; PULSE 78; RESP 16; O2SAT 99
[2023-07-03 18:45] VITALS: BP 138/79; PULSE 78; RESP 16; TEMP 37; O2SAT 99
== END 2023-07-03 18:47 | disposition home or self-care (01) ==
PROVIDERS: Emergency Provider Emergency Medicine; PCP Family Medicine; Visit Provider Emergency Medicine
DX: M54.31 Sciatica, right side (principal); M43.16 Spondylolisthesis, lumbar region; M54.16 Radiculopathy, lumbar region; J45.909 Unspecified asthma, uncomplicated; K21.9 Gastro-esophageal reflux disease without esophagitis; I10 Essential (primary) hypertension
CPT/HCPCS: 72100; 99283

== ENCOUNTER → 2023-10-11 | Outpatient (CLI) | payer OTHER, SELFPAY ==
--- NOTE | 2023-10-11 15:00 | MRI_ITS ---
EXAM: MR LUMBAR SPINE WITHOUT INTRAVENOUS CONTRAST CLINICAL INDICATION: LOW BACK PAIN PROGRESSIVE NEUROLOGIC DEFICIT TECHNIQUE: Multiplanar and multisequence MR images of the lumbar spine without intravenous contrast. COMPARISON: Lumbar spine radiographs, 07/03/[address] abdomen and pelvis, 09/10/2021. FINDINGS: VERTEBRAE: L2 and L4 vertebral body hemangiomas. No suspicious marrow space signal abnormality. Mild apex left curvature of the spine correlating best with comparison radiographs. No fracture or spondylolysis. No spondylolisthesis is evident. SPINAL CORD: No significant abnormality. Normal position and signal intensity of the conus medullaris. SOFT TISSUES: No significant abnormality. DISCS/SPINAL CANAL/NEURAL FORAMINA: T12-L1: Mild bilateral facet arthrosis. No disc herniation, spinal canal stenosis, or neural foraminal narrowing. L1-L2: Mild bilateral facet arthrosis. No disc herniation, spinal canal stenosis, or neural foraminal narrowing. L2-L3: Disc height loss and disc desiccation. Disc bulge with left foraminal to extraforaminal disc herniation and mild bilateral facet arthrosis. Mild spinal canal stenosis and mild left neural foraminal narrowing. L3-L4: Disc bulge with left extraforaminal disc herniation and mild bilateral facet arthrosis. No significant spinal canal or neural foraminal stenosis. L4-L5: Disc height loss and disc desiccation. Central disc herniation superimposed upon a disc bulge and moderate bilateral facet arthrosis. Mild to moderate spinal canal stenosis and mild bilateral neural foraminal narrowing. Disc herniation extends into the right foraminal zone. L5-S1: Moderate bilateral facet arthrosis. No disc herniation, spinal canal stenosis, or neural foraminal narrowing. MRI/Spine Lumbar (Routine) IMPRESSION: Multilevel degenerative changes in the lumbar spine. Mild to moderate spinal canal stenosis and mild multilevel neural foraminal narrowing. No nerve root impingement. Electronically Signed: Rafa Peres DO at 23:54 EDT ,
== END | disposition home or self-care (01) ==
LOC: MRI 15:05
PROVIDERS: PCP Family Medicine; Referring Provider Family Medicine; Visit Provider Family Medicine
DX: M51.36 Other intervertebral disc degeneration, lumbar region (principal)
CPT/HCPCS: 72148

== ENCOUNTER → 2024-01-20 | Outpatient (CLI) | payer OTHER, SELFPAY ==
--- NOTE | 2024-01-20 07:33 | MRI_ITS ---
STUDY: MRI LEFT WRIST WITHOUT CONTRAST REASON FOR EXAM: Female, 48 years old. GANGLION CYST LT WRIST, PAIN X FEW MONTHS TECHNIQUE: Standardized fat and water weighted pulse sequences were obtained in all 3 orthogonal planes. COMPARISON: None. FINDINGS: There is a multiseptated ganglion cyst at the anterior margin of the radiocarpal joint, overall measuring 1.3 cm AP, 2.3 cm transverse, and 2.3 cm craniocaudad. Normal visualized distal radius and ulna. Normal distal radioulnar articulation (DRUJ). Normal triangular fibrocartilaginous complex (TFCC). Normal carpal bones. Normal radiocarpal, intercarpal and midcarpal articulations. Normal pisotriquetral articulation. Normal visualized interosseous scapholunate ligament. Normal visualized dorsal (extrinsic) ligaments. Normal visualized volar (extrinsic) ligaments. Normal extensor tendons. Normal flexor tendons. Normal carpal tunnel with a normal median nerve. Normal carpometacarpal articulation of the thumb. Normal second through fifth carpometacarpal articulations. Normal visualized metacarpal bones. MRI/Upper Ext Joint Only(Routine) IMPRESSION: 1.3 x 2.3 x 2.3 cm multiseptated ganglion cyst at the anterior margin of the radiocarpal joint. No acute osseous, ligamentous, or tendinous injury. Electronically Signed: David Myers MD at 13:20 EST ,
== END | disposition home or self-care (01) ==
LOC: MRI 07:25
DX: M67.432 Ganglion, left wrist (principal)
CPT/HCPCS: 73221

== ENCOUNTER → 2024-04-28 | Outpatient (CLI) | payer OTHER, SELFPAY ==
[2024-04-28 10:12] LABS: Absolute Lymphocyte Count 1.46 X10^3/uL (0.83-4.51); Absolute Neutrophil Count 4.2 X10^3/uL (2.0-7.7); Basophil# 0.08 X10^3/uL; Basophil% 1.2 % (0-1); Eosinophil# 0.13 X10^3/uL; Hematocrit 40.7 % (37-47); Hemoglobin 13.1 g/dL (12.0-15.0); Lymphocyte # 1.46 X10^3/ul (0.83-4.51); Lymphocyte % 22.6 % (19-41); Mean Corp Hgb Conc 32.2 g/dL (32-36); Mean Corpuscular Hgb 28.4 pg (27.0-32.0); Mean Corpuscular Volume 88.1 fL (81-99); Mean Platelet Vol. 9.4 fl (6.2-12.0); Monocyte# 0.53 X10^3/uL; Monocyte% 8.2 % (0-10); NRBC Flagged by Analyzer 0 % (0-5); Neutrophil # 4.23 X10^3/uL (2.7-7.7); Neutrophil % 65.7 % (47-70); Platelet Count 328 K/mm3 (150-450); RBC Distribution Width CV 13.9 % (11.6-14.6); RBC Distribution Width SD 44.7 fl (35.1-43.9); Red Blood Count 4.62 M/mm3 (4.2-5.4); White Blood Count 6.5 K/mm3 (4.4-11.0)
[2024-04-28 10:23] LABS: Vitamin B12 289 pg/mL (211-911); Vitamin D,25 Hydroxy 44.2 ng/mL
[2024-04-28 10:35] LABS: ALB/GLOB Ratio 0.8 RATIO (0.9-2.4); AST(SGOT) 144 U/L (15-37); Alanine Aminotransfer ALT/SGPT 136 U/L (13-56); Albumin, Serum 3.8 g/dL (3.2-5.0); Alkaline Phosphatase 87 U/L (45-117); Anion Gap 6 (5-15); BUN 12 mg/dL (7-18); BUN/Creat Ratio 14.1 RATIO (10-20); Calcium,Total 9.9 mg/dL (8.5-10.1); Chloride 102 mmol/L (98-107); Cholesterol 205 mg/dL (200); Creatinine, Serum 0.85 mg/dL (0.55-1.02); EST Glomerular Filtration Rate 75 mL/min (>60); Est Glom Filt Rate - Afr Amer 91 mL/min (>60); Ferritin 115 ng/mL (8-252); Globulin 4.6 g/dL (2.2-4.2); Glucose 155 mg/dL (74-106); High Density Lipoprotein 61 mg/dL; Iron 56 ug/dL (50-170); Iron Binding Capacity,Total 473 ug/dL (250-450); Magnesium 2.1 mg/dL (1.6-2.6); Protein, Total 8.4 g/dL (6.4-8.2); Sodium Level 137 mmol/L (136-145); T4 Free Direct 0.91 ng/dL (0.76-1.46); Triglycerides 143 mg/dL; Very Low Density Lipoprotein 29 mg/dL (5-40)
== END | disposition home or self-care (01) ==
LOC: MTLAB 08:25
PROVIDERS: Referring Provider Physician Assistant Medical; Visit Provider Physician Assistant Medical
DX: I10 Essential (primary) hypertension (principal); R73.02 Impaired glucose tolerance (oral); E55.9 Vitamin D deficiency, unspecified; Z86.39 Personal history of other endocrine, nutritional and metabolic disease
CPT/HCPCS: 36415; 80053; 80061; 82306; 82607; 82728; 83036; 83540; 83550; 83735; 84439; 84443; 85025

== ENCOUNTER → 2024-06-20 | Outpatient (CLI) | payer OTHER, SELFPAY ==
--- NOTE | 2024-06-20 09:18 | BI_ITS ---
EXAM: SCRN MAMM (CAD)W/JULIANA BILAT DATE: 06/20/2024 CLINICAL HISTORY: F, Age 49 y/o , SCREENING Aunt with breast cancer. BREAST CANCER RISK ASSESSMENT: Not assessed. TECHNIQUE: Bilateral screening digital breast tomosynthesis with 2D and 3D images. Computer aided detection. COMPARISON: Prior exam(s) dated June 17 2023 prior sonogram dated June 17, 2023.. FINDINGS: TISSUE DENSITY: The breast tissue is composed of scattered area of fibroglandular density. Bilateral Breast Mammographic Findings: No significant masses, calcifications or other abnormalities are identified. Stable 1 cm nodular density in the medial retroareolar region of the left breast. This was demonstrated to be a small benign-appearing lymph node on prior sonogram. BI/SCRN MAMM (CAD)W/JULIANA BILAT IMPRESSION: Right Breast: BIRADS 1 NEGATIVE. Left Breast: BIRADS 2 BENIGN FINDING. OVERALL FINAL ASSESSMENT: BIRADS 2 BENIGN FINDING RECOMMENDATION: Routine annual follow-up in 1 Year A letter with findings and recommendations will be mailed to the patient. Reading Location: [place] [id number]
== END | disposition home or self-care (01) ==
LOC: OPBI 09:17
PROVIDERS: PCP Physician Assistant Medical; Referring Provider Physician Assistant Medical; Visit Provider Physician Assistant Medical
DX: Z12.31 Encounter for screening mammogram for malignant neoplasm of breast (principal)
CPT/HCPCS: 77063; 77067

== ENCOUNTER → 2024-09-11 | Outpatient (CLI) | payer OTHER, SELFPAY ==
[2024-09-11 10:52] LABS: Creatinine, Urine (random) 253.00 mg/dL (28.00-217.00); Microalbumin,Random Urine < 12.0 mg/L (NO RANGE EST.)
[2024-09-11 13:02] LABS: AST(SGOT) 54 U/L (<=31); Alanine Aminotransfer ALT/SGPT 68 U/L (<=34); Albumin, Serum 4.3 g/dL (3.5-5.0); Alkaline Phosphatase 83 U/L (35-104); Anion Gap 12 (5-15); BUN 15 mg/dL (4-19); BUN/Creat Ratio 15.5 RATIO (10-20); Calcium,Total 10.0 mg/dL (7.6-11.0); Carbon Dioxide 26.4 mmol/L (21.0-32.0); Chloride 102 mmol/L (98-108); Globulin 3.5 g/dL (2.2-4.2); Glucose 109 mg/dL (70-99); Potassium 4.0 mmol/L (3.3-5.1)
== END | disposition home or self-care (01) ==
LOC: MTLAB 09:05
PROVIDERS: PCP Physician Assistant Medical; Referring Provider Physician Assistant Medical; Visit Provider Physician Assistant Medical
DX: E11.65 Type 2 diabetes mellitus with hyperglycemia (principal)
CPT/HCPCS: 36415; 80053; 82043; 82570; 83036

== ENCOUNTER → 2024-11-27 | Outpatient (CLI) | payer OTHER, SELFPAY ==
[2024-11-27 16:30] LABS: Creatinine, Urine (random) 170.00 mg/dL (28.00-217.00); Microalbumin,Random Urine < 12.0 mg/L (<20 mg/L)
[2024-11-27 16:45] LABS: AST(SGOT) 32 U/L (<=31); Alanine Aminotransfer ALT/SGPT 34 U/L (<=34); Albumin, Serum 4.5 g/dL (3.5-5.0); Alkaline Phosphatase 86 U/L (35-104); Anion Gap 14 (5-15); BUN 17 mg/dL (4-19); BUN/Creat Ratio 17.8 RATIO (10-20); Calcium,Total 10.3 mg/dL (7.6-11.0); Carbon Dioxide 25.4 mmol/L (21.0-32.0); Chloride 100 mmol/L (98-108); Globulin 3.6 g/dL (2.2-4.2); Glucose 91 mg/dL (70-99); Potassium 4.1 mmol/L (3.3-5.1)
== END | disposition home or self-care (01) ==
LOC: MTLAB 11:15
PROVIDERS: PCP Physician Assistant Medical; Referring Provider Physician Assistant Medical; Visit Provider Physician Assistant Medical
DX: E11.65 Type 2 diabetes mellitus with hyperglycemia (principal)
CPT/HCPCS: 36415; 80053; 82043; 82570; 83036

== ENCOUNTER 2024-12-20 18:48 | Emergency (ER) | payer OTHER, SELFPAY ==
[2024-12-20 18:49] VITALS: BP 153/99; PULSE 86; RESP 15; TEMP 36.4; O2SAT 100; BMI 29.9
--- NOTE | 2024-12-20 19:30 | CT_ITS ---
PROCEDURE: CT BRAIN/HEAD WITHOUT CONTRAST 12/20/2024 REASON FOR EXAM: TRAUMA TECHNIQUE: Procedure Code: CTBR Modality: CT Procedure: BRAIN/HEAD WITHOUT CONTRAST Coronal and Sagittal reconstruction series were provided. One or more dose reduction techniques were used (e.g., Automated exposure control, adjustment of the mA and/or kV according to patient size, use of iterative reconstruction technique. RADIATION DOSE SUMMARY: CTDlvol: 44.99 mGy DLP: 815.79 mGycm COMPARISON: None. FINDINGS: No acute intracranial hemorrhage, extra-axial collection, mass effect or evidence of acute infarct. Ventricles and subarachnoid spaces are normal in size. Orbital contents are unremarkable. Intact skull base and calvarium. Clear paranasal sinuses and mastoid air cells. CT/Brain/Head without Contrast IMPRESSION: No acute intracranial abnormality. Reading Location: [id number]
--- NOTE | 2024-12-20 19:30 | EX.ED.GENINJ ---
HPI History of Present Illness Chief Complaint: Head Injury Narrative Narrative: 49-year-old female who denies significant past medical history presents with head injury that she sustained approximately an hour and 15 minutes ago while she was at home. She and her have large dogs at home. She is trying to step over it when the dog became entangled in her feet. She fell forward and hit her front of her head against the wall. Her states she may have had very brief loss of consciousness. She was able to sit in the chair but needed assistance. She states that her neck feels somewhat stiff and strained but denies any pain. She is nauseated but has not vomited. She denies photophobia or phonophobia. She does not take blood thinners. She states she has a severe headache. No exacerbating or alleviating factors. She has been taking Motrin and Excedrin without relief. She does have history of migraine headache. [facility] Medical History Benign essential tremor Anxiety Migraine headache History of ulceration Gastric reflux Non-smoker Asthma History of edema History of stress test Cardiology follow-up encounter Depression Hypertension Home Medications ?Medication ?Instructions ?Recorded ?Last Taken ?Type escitalopram oxalate 10 mg tablet 20 mg PO DAILY 08/12/13 Unknown History lisinopril 20 mg tablet 20 mg PO QHS 08/12/13 Unknown History nortriptyline 10 mg capsule 20 mg PO QHS 08/12/13 Unknown History albuterol sulfate 90 mcg/actuation 1 - 2 puff inhalation Q4H PRN PRN 04/12/15 04/19/15 07:00 History aerosol inhaler (ProAir HFA) allergry hydrochlorothiazide 12.5 mg capsule 12.5 mg PO QHS 04/12/15 Unknown History loratadine 10 mg tablet (Allergy 10 mg PO PRN PRN ALLERGIES 04/12/15 Unknown History Relief (loratadine)) multivitamin with folic acid 400 1 tab PO DAILY 04/12/15 Unknown History mcg tablet (Thera) omeprazole 20 mg capsule,delayed 20 mg PO DAILY 04/12/15 01/28/21 History release rizatriptan 5 mg tablet 5 mg PO Q2H PRN migraine 07/03/23 Unknown History mirabegron 50 mg tablet,extended 50 mg PO QDAY #90 tabs 10/13/24 Unknown Rx release 24 hr (Myrbetriq) Allergy/AdvReac Type Severity Reaction Status Date / Time No Known Allergies Allergy Verified 12/20/24 18:49 Surgical History Hx of umbilical hernia repair History of endometrial ablation History of carpal tunnel release of both wrists History of cholecystectomy History of ankle surgery Social History Smoking Status: Never smoker ROS ROS ED ROS Narrative Review of systems positive for closed head injury, neck stiffness, and headache. History of migraines. Positive nausea but no vomiting. No photophobia or phonophobia. EXAM Physical Exam Narrative Exam Narrative: GCS 14. ABCs intact. Cardiovascular semination regular rate and rhythm. Lungs are clear to auscultation bilaterally. Neck soft and supple without meningismus. Full range of motion. No vertebral point tenderness or bony step-off. PERRL, EOMI. Neurological examination nonfocal, nonlateralizing. Awake, alert, oriented x 3. Able to raise arms above head without difficulty. Moves all extremities. Const Vital Signs: 12/20/24 18:49 12/20/24 19:15 12/20/24 20:54 Temperature 97.6 F L 98.0 F Temperature Source Temporal Pulse Rate 86 81 Respiratory Rate 15 16 Respiratory Effort Normal Blood Pressure 153/99 H 142/60 H Blood Pressure Mean 117 87 Pulse Ox 100 97 Oxygen Delivery Method Room Air Room Air MDM MDM MDM Narrative Medical decision making narrative: Differential diagnosis includes but not limited to closed head injury/mild concussion versus intracranial hemorrhage. I have low suspicion for hemorrhage based on her neurological examination. Her states that he brought her in mainly to make sure that everything was okay internally and for CT of the brain. I do not feel CT of the neck is indicated and through shared decision making, patient also declines this. She has already taken NSAIDs as analgesics. CT of the brain was performed and I reviewed the radiology report. There is no evidence of acute intracranial hemorrhage, no intracranial abnormality. Upon repeat examination she is sitting in a darkened room. She states that remotely she had to come to the emergency department for analgesia for migraines. As she is requesting something for nausea, it was agreed upon that she will receive intramuscular injection of Compazine 10 mg. I feel she could be discharged safely home with follow-up to her primary care provider if no improvement in 7 to 10 days. Other review instructions were reviewed. Disposition is discharged home in stable condition. History & Record Review Discussion w/independent historian: Patient and Family () Additional record(s) reviewed:: Prior ED visit (Last seen in 2023 for back pain) Radiography Diagnostic Testing: Clinical Impression(s) from Imaging Studies Brain CT 12/20/24 19:30 IMPRESSION: No acute intracranial abnormality. Reading Location: [id number] Discharge Plan Triage Chief Complaint: Head Injury ED Provider: Tomasz Driscoll Dx/Rx/DC Orders Clinical Impression: Concussion, Closed head injury, Nausea Instructions: ED Concussion, ED Facial Contusion, ED Head Injury (Adult) Prescriptions: No Action lisinopril 20 MG tablet 20 mg PO QHS nortriptyline 10 MG capsule 20 mg PO QHS escitalopram oxalate 10 MG tablet 20 mg PO DAILY hydrochlorothiazide 12.5 MG capsule 12.5 mg PO QHS omeprazole 20 MG capsule 20 mg PO DAILY albuterol sulfate [ProAir HFA] 1 PUFF inhaler 1 - 2 puff inhalation Q4H PRN PRN (Reason: allergry) loratadine [Allergy Relief (loratadine)] 10 MG tablet 10 mg PO PRN PRN (Reason: ALLERGIES) multivitamin with folic acid [Thera] 1 TABLET tablet 1 tab PO DAILY rizatriptan 5 mg tablet 5 mg PO Q2H PRN (Reason: migraine) mirabegron [Myrbetriq] 50 mg tablet extended release 24 hr 50 mg PO QDAY Qty: 90 0RF Primary Care Provider: Sona Holden Referrals: Sona Holden PA [Primary Care Provider, Medical] Activity Restrictions/Additional Instructions: [id number] medications as needed for pain. Return with increased pain, new or worsening symptoms. Otherwise, follow-up with your primary care provider if not improving in 7 to 10 days. Print Language: Serbian Disposition Disposition: Home, Self Care Discharge Date/Time: 12/20/24 20:54
--- OUTSIDE RECORDS SUMMARY | 2024-12-20 19:30 | XMS RPT_ITS | CCD ---
Author Organization [facility] Care Team Providers Care Medical Staff Assistant Name Role Phone Monica Harris Unavailable [phone] Arpit Stafford Unavailable Unavailable Arpit Stafford Unavailable Unavailable Arpit Stafford Unavailable Unavailable Arpit Stafford Unavailable Unavailable Monica Harris MD Primary Care Provide r Monica Harris MD Unavailable Gabe [facility] Malka Azul Primary Care Provider [facility] Malka Azul Unavailable [facility] Malka Azul Unavailable GABE MALKA AZUL Primary Care Unavailabl e SYSTEM, PROVIDER NOT IN Referring Unavaila ble SYSTEM, PROVIDER NOT IN Attending Unavaila ble ANUP KING Admitting Unavailab le GABE MALKA AZUL [facility] Unavailchris e ANUP KING Attending Unavailab le MEDIA ARTS PROFESSORCAMILLE KARIMI Attending Unavailable CAMILLE MERAZ Admitting Unavailable [facility] MALKA AZUL Primary Care Unavailabl sho Willis PA-C, Patric Kaur Primary Care Provider ANUP KING Attending Unavailab le MALKA BERNAL AZUL Primary Care Unavailchris e KAREN ARMENTA Attending Unavailable [facility] MALKA [facility] Care UnavailKAREN Acevedo Attending Unavailable KAREN ARMENTA Referring Unavailable MALKA BERNAL [facility] UnavailKAREN Acevedo Admitting Unavailable AGBEFCOMALKA PAIGE Attending Unavailabl e [facility] MALKA [facility] Care Unavailabl e MALKA BERNAL Attending Unavailabl e SHANK, MALKA AZUL Primary Care Unavailabl e SHANK, MALKA AZUL Attending Unavailabl KAREN Reaves Attending Unavailable SHANK, MALKA AZUL Primary Care Unavailabl e SHANK, MALKA LIANG Referring Unavailabl e SHANK, MALKA AZUL Admitting Unavailabl e SHANK, MALKA BARBOZAGE Primary Care Unavailabl e SHANK, MALKA AZUL Attending Unavailabl e SHANK, MALKA AZUL Admitting Unavailabl e CAMILLE MERAZ Attending Unavailable SHANK, MALKA AZUL Primary Care Unavailabl e SHANK, MALKA AZUL Referring Unavailabl e SHANK, MALKA BARBOZAGE Primary Care Unavailabl e SHANK, MALKA AZUL Attending Unavailabl e SYLVIA PEREA Attending Unavailable MONICA HARRIS Primary Care Unavail able MONICA HARRIS Referring Unavail able Shank UTILITY SYSTEMS REPAIRER OPERATOR-C, Brea Primary Care Provider Patric Brown Attending Provider Adina PA, Patric Referring Provider Mosby PA, Patric Primary Care Provider [phone] Adina PA-C, Patric B Unavailable Mosby PA-C, Patric B Primary Care Provider Patric Brown Attending Provider Mosby PA, Patric Referring Provider Adina PA, Patric Primary Care Unavailabl e Adina PA, Patric Attending Unavailabl e Adina PA, Patric Referring Unavailabl e Gabe, Malka Primary Care Unavailable MAXWELL, MON Attending Unavailable MAXWELL, MON Referring Unavailable Gabe, Malka Primary Care Unavailable Adina PA, Patric Attending Unavailabl e Adina PA, Patric Referring Unavailabl e Mosby PA, Martinez Primary Care Unavailabl e Mosby PA, Patric Attending Unavailabl e Adina PA, Patric Referring Unavailabl e Adina PA, Martinez Primary Care Unavailabl e Mosby PA, Patric Attending Unavailabl e Mosby PA, Patric Referring Unavailabl e Adina PA, Martinez Primary Care Physician [phone] Devang WALTERS, Dr. Real Attending Physician Patric Brown Attending Physician Patric Brown Referring Provider [phone] PATRIC WILLIS Attending Unavailable PATRIC WILLIS Primary Care Unavailable PATRIC WILLIS Attending Unavailable PATRIC WILLIS Primary Care Unavailable PATRIC WILLIS Attending Unavailable PATRIC WILLIS Primary Care Unavailable Allergies Allergy Classification Reported Allergen(s) Allergy Type Date of Onset Reaction(s) Facility (4 sources) naproxen; Translations: [NAPROXEN] Drug Allergy 11-04-2015 Shortness Of Breath [facility] Medications Current Medications Medication Drug Class(es) Dates Sig (Normalized) Sig (Original) Albuterol Sulfate (15 sources) beta2-Adrenergic Agonist Start: 04-12-2015 take 1 puff(s) by inhalation every four hours as needed Albuterol Sulfate (Proair Hfa (Sp)Vent Pts) 1 PUFF inhaler Active 1 - 2 PUFF INHALATION EVERY 4 HOURS NEEDED April 12, 2015 11:18am Start: 04-12-2015 take 1 puff(s) by in halation every four hours as needed take 2 puff(s) by in halation every six hours albuterol 90 mcg/actuation inhaler Inhale 2 puffs every 6 hours if needed. Active Albuterol Sulfate (Proair Hfa (Sp)Vent Pts) 1 PUFF inhaler (9 sources) Start: 04-12-2015 take 1 puff(s) by inhalation every four hours as needed Albuterol Sulfate (Proair Hfa (Sp)Vent Pts) 1 PUFF inhaler Active 1 - 2 NMA INHALATION EVERY 4 HOURS NEEDED as needed for allergry April 12, 2015 1:00am Start: 04-12-2015 take 1 puff(s) by in halation every four hours as needed Albuterol Sulfate (Proair Hfa (Sp)Vent Pts) 1 PUFF inhaler Active 1 - 2 PUFF INHALATION EVERY 4 HOURS NEEDED April 12, 2015 12:00am Start: 04-12-2015 take 1 puff(s) by in halation every four hours as needed Albuterol Sulfate (Proair Hfa (Sp)Vent Pts) 1 PUFF inhaler Active 1 - 2 PUFF INHALATION EVERY 4 HOURS NEEDED April 12, 2015 1:00am diazePAM 5 mg oral tablet (4 sources) Benzodiazepine Start: 07-03-2023 take 1 tablet by mouth every eight hours as needed for muscle spasms escitalopram 20 mg oral tablet (20 sources) Serotonin Reuptake Inhibitor Start: 12-10-2023 End: 09-06-2024 take 1 tablet by mouth in the morning escitalopram (Lexapro) 20 mg tablet Indications: Depression, major, recurrent, mild , BRIDGET (generalized anxiety disorder) Take 1 tablet (20 mg) by mouth early in the morning.. 90 tablet 3 09/06/2024 Active Start: 07-23-2015 escitalopram o xalate (LEXAPRO) 10 MG tablet 07/23/2015 Active Start: 08-12-2013 End: 03-13-2024 take 2 tablets by mouth once daily Start: 08-12-2013 take 20 mg by mouth once daily Escitalopram Oxalate Active 20 MG PO DAILY August 12, 2013 12:00am gabapentin 300 mg oral capsule (14 sources) Anti-epileptic Agent Start: 07-03-2023 End: 09-06-2024 take 1 capsule by mouth at bedtime Start: 07-03-2023 take 300 mg by mouth at bedtim e Gabapentin Active 300 MG PO AT BEDTIME July 03, 2023 12:00am hydroCHLOROthiazide 12.5 mg oral tablet (20 sources) Thiazide Diuretic Start: 03-13-2024 End: 09-06-2024 take 1 tablet by mouth once daily hydroCHLOROthiazide (Microzide) 12.5 mg tablet Indications: Primary hypertension Take 1 tablet (12.5 mg) by mouth once daily. 90 tablet 3 09/06/2024 Active Start: 07-23-2015 End: 03-11-2024 hydrochlorothiazide (HYDRODI URIL) 12.5 MG tablet 07/23/2015 03/11/2024 Discontinued (Reorder (Suppress CancelRx Message to Pharmacy)) Start: 04-12-2015 take 1 capsule by [facility] at bedtime lisinopril 20 mg oral tablet (20 sources) Angiotensin Converting Enzyme Inhibitor Start: 09-07-2024 End: 12-11-2024 take 1 tablet by mouth once daily lisinopril 20 mg tablet Indications: Primary hypertension Take 1 tablet (20 mg) by mouth once daily. 90 tablet 1 12/11/2024 Active Start: 08-12-2013 End: 03-11-2024 take 1 tablet by mouth at bedtime loratadine 10 mg oral tablet (14 sources) Start: 04-12-2015 24 hr mirabegron 50 mg extended release oral tablet (11 sources) beta3-Adrenergi c Agonist Start: 10-13-2024 take 1 tablet by mouth once daily Multivitamin With Folic Acid (Thera) 1 TABLET tablet (14 sources) Start: 04-12-2015 take 1 tablet by mouth once daily Multivitamin With Folic Acid (Thera) 1 TABLET tablet Active 1 TABLET PO DAILY April 12, 2015 11:18am Start: 04-12-2015 take 1 tablet by zev th once daily Start: 04-12-2015 take 1 tablet by zev th once daily Multivitamin With Folic Acid (Thera) 1 TABLET tablet Active 1 {tbl} PO DAILY April 12, 2015 1:00am Start: 04-12-2015 take 1 tablet by zev th once daily Multivitamin With Folic Acid (Thera) 1 TABLET tablet Active 1 TABLET PO DAILY April 12, 2015 12:00am Start: 04-12-2015 take 1 tablet by zev th once daily Multivitamin With Folic Acid (Thera) 1 TABLET tablet Active 1 TABLET PO DAILY April 12, 2015 1:00am nortriptyline 10 mg oral capsule (20 sources) Tricyclic Antidepressant Start: 08-12-2013 End: 09-06-2024 take 1 capsule by mouth twice daily nortriptyline (Pamelor) 10 mg capsule Indications: Intractable migraine with aura with status migrainosus Take 1 capsule (10 mg) by mouth 2 times a day. 180 capsule 3 09/06/2024 Active Start: 08-12-2013 take 20 mg by mouth at bedtime Nortriptyline Active 20 MG PO AT BEDTIME August 12, 2013 12:00am omeprazole 20 mg delayed release oral capsule (20 sources) Proton Pump Inhibitor Start: 04-12-2015 End: 04-20-2024 take 1 capsule by mouth once daily omeprazole (PriLOSEC) [address] capsule Indications: Dyspepsia Take 1 capsule (20 mg) by mouth once daily. 90 capsule 3 04/20/2024 Active predniSONE 20 mg oral tablet (4 sources) Start: 07-03-2023 take 3 tablets by mouth once daily Start: 07-03-2023 take 60 mg by mouth once daily Prednisone Active 60 MG PO DAILY July 03, 2023 12:00am next dose 07/04/23 rizatriptan 5 mg oral tablet (16 sources) Serotonin-1b and Serotonin-1d Receptor Agonist Start: 09-06-2024 End: 12-11-2024 take 1 tablet by mouth once rizatriptan (Maxalt) 5 mg tablet Indications: Intractable migraine with aura with status migrainosus Take 1 tablet (5 mg) by mouth 1 time if needed for migraine. 9 tablet 1 12/11/2024 Active Start: 07-03-2023 End: 09-06-2024 take 1 tablet by mouth every two hours tirzepatide (Mounjaro) 5 mg/0.5 mL pen injector (2 sources) Start: 10-02-2024 inject 5 mg by subcutaneous injection every week tirzepatide (Mounjaro) 5 mg/0.5 mL pen injector Indications: Controlled type 2 diabetes mellitus with hyperglycemia, without long-term current use of insulin (Multi) Inject 5 mg under the skin 1 (one) time per week. 6 mL 1 10/02/2024 Active Start: 06-14-2024 inject 5 mg by subcu taneous injection every week tirzepatide (Mounjaro) 5 mg/0.5 mL pen injector Indications: Controlled type 2 diabetes mellitus with hyperglycemia, without long-term current use of insulin Inject 5 mg under the skin 1 (one) time per week. 8 mL 06/14/2024 Active tirzepatide (Mounjaro) 7.5 mg/0.5 mL pen injector (1 source) Start: 12-11-2024 inject 7.5 mg by subcutaneous injection every week tirzepatide (Mounjaro) 7.5 mg/0.5 mL pen injector Indications: Controlled type 2 diabetes mellitus with hyperglycemia, without long-term current use of insulin (Multi) Inject 7.5 mg under the skin 1 (one) time per week. 6 mL 3 12/11/2024 Active topiramate 50 mg oral tablet (10 sources) Start: 06-14-2024 take 1 tablet by mouth once daily topiramate (Topamax) 50 mg tablet Indications: Benign essential tremor Take 1 tablet (50 mg) by mouth once daily. 90 tablet 3 06/14/2024 Active Start: 12-20-2023 take 1 tablet by zev th once daily topiramate (Topamax) 50 mg tablet Take 1 tablet (50 mg) by mouth once daily. 12/20/2023 Active take 1 tablet by zev th once daily topiramate (TOPAMAX) 50 MG tablet Take 1 (one) tablet (50 mg total) by mouth daily . Active Completed/Discontinued Medications Medication Drug Class(es) Dates Sig (Normalized) Sig (Original) acetaminophen 325 mg / HYDROcodone bitartrate 5 mg oral tablet (20 sources) Opioid Agonist Start: 01-29-2021 End: 07-03-2023 take 1 tablet by mouth every six hours Hydrocodone-Acetami nophen Discontinued 1 TABLET PO EVERY 6 HOURS 28 7 January 29, 2021 July 03, 2023 5:36pm Start: 01-19-2021 End: 07-03-2023 Hydrocodone-Acetaminophen 5- 325 mg tablet Discontinued 1 {tbl} PO Q4H as needed for pain 20 5 0 January 19, 2021 July 03, 2023 5:36pm Fracture of left ankle Other fracture of left lower leg, initial encounter for closed fracture Start: 01-19-2021 End: 07-03-2023 take 1 tablet by mouth every four hours Hydrocodone-Acetaminophen Discontinued 1 TABLET PO Q4H 20 5 January 19, 2021 July 03, 2023 5:36pm Start: 12-30-2017 End: 11-22-2023 Hydrocodone-Acetaminophen 5- 325 mg tablet Discontinued 1 {tbl} PO EVERY 6 HOURS as needed for pain 28 7 0 January 29, 2021 July 03, 2023 5:36pm Left ankle pain Closed displaced oblique fracture of shaft of left fibula, initial encounter Pain in left ankle and joints of left foot 12 hr buPROPion hydrochloride 90 mg / naltrexone hydrochloride 8 mg extended release oral tablet (1 source) Opioid Antagonist, Aminoketone Start: 06-25-2023 End: 04-20-2024 take 2 tablets by mouth every twelve hours Contrave 8-90 mg ER tablet Take 2 tablets by mouth every 12 hours. 06/25/2023 04/20/2024 Discontinued (Med List Cleanup) meloxicam 7.5 mg oral tablet (3 sources) Nonsteroidal Anti-inflammatory Drug Start: 01-07-2024 End: 03-09-2024 take 1-2 tablets by mouth once daily as needed meloxicam (MOBIC) 7.5 MG tablet TAKE 1 TO 2 TABLETS BY MOUTH DAILY NEEDED WITH FOOD 01/07/2024 03/09/2024 Discontinued (Patient's Request) pregabalin 25 mg oral capsule (2 sources) Start: 11-10-2023 End: 01-27-2024 take 1-2 capsules by mouth twice daily pregabalin (LYRICA) 25 MG capsule Take 1-2 capsules by mouth Twice a day for 14 Days 11/10/2023 01/27/2024 Discontinued (Patient's Request) tirzepatide (Mounjaro) 2.5 mg/0.5 mL pen injector (1 source) Start: 05-25-2024 End: 09-06-2024 inject 2.5 mg by subcutaneous injection every week tirzepatide (Mounjaro) 2.5 mg/0.5 mL pen injector Indications: Type 2 diabetes mellitus with hyperglycemia, without long-term current use of insulin Inject 2.5 mg under the skin 1 (one) time per week. 2 mL 2 05/25/2024 09/06/2024 Discontinued (Med List Cleanup) ZOLMitriptan 2.5 mg oral tablet (18 sources) Serotonin-1b and Serotonin-1d Receptor Agonist Start: 08-12-2013 End: 07-03-2023 Zolmitriptan (Zomig) 2.5 MG tablet Discontinued 5 mg PO NEEDED as needed for migraines August 12, 2013 12:00am July 03, 2023 5:37pm End: 11-22-2023 ZOLMitriptan (ZOMIG-ZMT) 5 M G disintegrating tablet Take 5 mg by mouth as needed for migraine. 11/22/2023 Discontinued (Patient's Request) Problems Active Problems Problem Classification Problem Date Documented Da te Episodic/Chronic Administrative/social admission (12 sources) Patient encounter status; Translations: [Persons encountering health services in other specified circumstances] Onset: 12-02-2023 4 Episodic Anxiety disorders (17 sources) Mixed anxiety and depressive disorder; Translations: [Anxiety disorder, unspecified] Onset: 11-22-2023 11-22-2023 Chronic Asthma (12 sources) Mild intermittent asthma; Translations: [Mild intermittent asthma, uncomplicated] Onset: 11-22-2023 11-22-2023 Chronic Diabetes mellitus with complications (6 sources) Type 2 diabetes mellitus well controlled; Translations: [Type 2 diabetes mellitus with hyperglycemia] Onset: 03-22-2023 09-06-2024 Chronic Essential hypertension (18 sources) Essential hypertension; Translations: [Essential (primary) hypertension] Onset: 11-22-2023 11-22-2023 Chronic Fracture of lower limb (20 sources) Closed fracture of shaft of fibula; Translations: [Displaced oblique fracture of shaft of left fibula, initial encounter for closed fracture] 01-27-2021 Episodic Genitourinary symptoms and ill-defined conditions (1 source) Urinary incontinence; Translations: [Unspecified urinary incontinence] 11-22-2023 Chronic Headache; including migraine (15 sources) Migraine; Translations: [Other migraine, not intractable, without status migrainosus] Onset: 11-22-2023 11-22-2023 Chronic Mood disorders (8 sources) Recurrent major depressive episodes, mild ; Translations: [Major depressive disorder, recurrent, mild] Onset: 04-20-2024 04-20-2024 Chronic Nutritional deficiencies (7 sources) Vitamin D deficiency; Translations: [Vitamin D deficiency, unspecified] Onset: 04-20-2024 04-20-2024 Chronic Other disorders of stomach and duodenum (1 source) Indigestion 04-20-2024 Episodic Other gastrointestinal disorders (10 sources) Diarrhea; Translations: [Diarrhea, unspecified] 09-18-2021 Episodic Other hereditary and degenerative nervous system conditions (6 sources) Essential tremor; Translations: [Essential tremor] Onset: 04-20-2024 04-20-2024 Chronic Other hereditary and degenerative nervous system conditions (2 sources) Essential tremor; Translations: [Essential tremor] Onset: 04-20-2024 Chronic Other nervous system disorders (13 sources) Carpal tunnel syndrome, left upper limb; Translations: [Carpal tunnel syndrome of left wrist] Onset: 08-07-2015 11-22-2017 Chronic Other nervous system disorders (11 sources) Disorder of right sciatic nerve; Translations: [Lesion of sciatic nerve, right lower limb] Onset: 07-08-2023 11-22-2023 Chronic Other nervous system disorders (2 sources) Other chronic pain; Translations: [Other chronic pain] Onset: 10-28-2023 Chronic Other non-traumatic joint disorders (14 sources) Ankle pain; Translations: [Pain in left ankle and joints of left foot] 01-27-2021 Episodic Other nutritional; endocrine; and metabolic disorders (2 sources) Severe obesity; Translations: [Class 2 severe obesity due to excess calories with serious comorbidity and body mass index (BMI) of 35.0 to 35.9 in adult] Onset: 04-20-2024 04-20-2024 Chronic Other nutritional; endocrine; and metabolic disorders (2 sources) Obesity caused by energy imbalance; Translations: [Class 1 obesity due to excess calories with serious comorbidity and body mass index (BMI) of 31.0 to 31.9 in adult] Onset: 04-20-2024 09-06-2024 Chronic Other nutritional; endocrine; and metabolic disorders (2 sources) Body mass index 25-29 - overweight; Translations: [Overweight] Onset: 04-20-2024 12-11-2024 Episodic Residual codes; unclassified (2 sources) Past history of procedure; Translations: [Other specified postprocedural states] 03-09-2024 Episodic Residual codes; unclassified (2 sources) Other specified postprocedural states; Translations: [Other specified postprocedural states] Onset: 2024 Episodic Spondylosis; intervertebral disc disorders; other back problems (16 sources) Degeneration of lumbar intervertebral disc; Translations: [Other intervertebral disc degeneration, lumbar region] Onset: 10-28-2023 10-20-2023 Chronic Spondylosis; intervertebral disc disorders; other back problems (11 sources) Disorder of right sciatic nerve; Translations: [Sciatica, right side] Onset: 10-28-2023 07-03-2023 Episodic Unclassified (1 source) Patient encounter status 04-20-2024 Unclassified (2 sources) 05/27/2021 HM PAP SMEAR Onset: 12-09-2023 Past or Other Problems Problem Classification Problem Date Documented Da te Episodic/Chronic Abdominal pain (16 sources) Abdominal pain; Translations: [Unspecified abdominal pain] Onset: 04-20-2024 09-18-2021 Episodic Diabetes mellitus without complication (13 sources) Impaired fasting glycemia; Translations: [Impaired fasting glucose] Onset: 03-22-2023 11-22-2023 Episodic Mood disorders (2 sources) Mood disorders Onset: 11-22-2023 11-22-2023 Other aftercare (10 sources) Surgical follow-up; Translations: [Encounter for follow-up examination after completed treatment for conditions other than malignant neoplasm] Onset: 09-23-2015 09-23-2015 Episodic Other aftercare (2 sources) Other custodial (current) drug therapy; Translations: [Other media production support manager (current) drug therapy] Onset: 04-20-2024 Episodic Other connective tissue disease (10 sources) Ganglion cyst of left wrist; Translations: [Ganglion, left wrist] Onset: 02-04-2024 Resolved: 09-06-2024 12-30-2023 Episodic Other connective tissue disease (5 sources) Ganglion, left wrist; Translations: [Ganglion, left wrist] Onset: 01-27-2024 Episodic Other connective tissue disease (2 sources) Ganglion, unspecified site; Translations: [Ganglion, unspecified site] Onset: 12-30-2023 Episodic Other nervous system disorders (11 sources) Finding of hand region; Translations: [Tremor, unspecified] Onset: 11-22-2023 11-22-2023 Episodic Other nutritional; endocrine; and metabolic disorders (4 sources) History of iron deficiency; Translations: [Personal history of other endocrine, nutritional and metabolic disease] Onset: 04-20-2024 04-20-2024 Episodic Other nutritional; endocrine; and metabolic disorders (2 sources) Personal history of other endocrine, nutritional and metabolic disease; Translations: [Personal history of other endocrine, nutritional and metabolic disease] Onset: 04-20-2024 Episodic Other screening for suspected conditions (not mental disorders or infectious disease) (7 sources) Encounter for screening for malignant neoplasm of colon; Translations: [Encounter for screening mammogram for malignant neoplasm of breast] Onset: 12-02-2023 Episodic Residual codes; unclassified (2 sources) Pain, unspecified; Translations: [Pain, unspecified] Onset: 12-30-2023 Episodic Unclassified (1 source) Carpal tunnel syndrome of left wrist Unclassified (3 sources) Onset: 04-20-2024 Resolved: 12-11-2024 04-20-2024 Results Test Name Value Interpretation Reference Range Facility Anion gap in Serum or Plasma Ordered By: Patric Willis on 11-27-2024 Anion gap [Moles/Vol] 14 mmol/L 5-15 [facility] BUN/creatinine ratioOrdered By: Patric Willis on 11-27-2024 Urea nitrogen/Creatinine [Mass ratio] 17.8 mg/mg 10-20 [facility] Bilirubin, totalOrdered By: Patric Willis on 11-27-2024 Bilirubin [Mass/Vol] 0.43 mg/dL 0.00-1.30 [facility] Carbon dioxide, total [Moles /volume] in Central venous bloodOrdered By: Patric Willis on 11-27-2024 CO2 [Moles/Vol] 25.4 mmol/L 21.0-32.0 [facility] Chloride assayOrdered By: Ra ida Willis on 11-27-2024 Chloride [Moles/Vol] 100 mmol/L 98-108 [facility] Comprehensive Metabolic Prof ilon 11-27-2024 Albumin [Mass/Vol] 4.5 g/dL Normal 3.5-5.0 [facility] Comment on above: Performed By: #### L 500.4050, L501.9985, L502.0250 #### [facility] [address] [place], [address] Albumin/Globulin [Mass ratio] 1.2 {ratio} Normal 0.9-2.4 [facility] Comment on above: Performed By: #### L 500.4050, [id number], L502.0250 #### [facility] [address] [place], [address] ALK PHOS 86 U/L Normal 35-104 [facility] Comment on above: Performed By: #### L 500.4050, [id number], L502.0250 #### [facility] [address] [place], [address] ALT [Catalytic activity/Vol] 34 U/L Normal <=34 [facility] Comment on above: Performed By: #### L 500.4050, [id number], L502.0250 #### [facility] [address] [place], [address] AST [Catalytic activity/Vol] 32 U/L Normal <=31 [facility] Comment on above: Performed By: #### L 500.4050, [id number], L502.0250 #### [facility] [address] [place], [address] Bilirubin [Mass/Vol] 0.43 mg/dL Normal 0.00-1.30 [facility] Comment on above: Performed By: #### L [id number], [id number], L502.0250 #### [facility] [address] [place], [address] BUN/CRE 17.8 RATIO Normal 10-20 [facility] Comment on above: Performed By: #### L [id number], [id number], L502.0250 #### [facility] [address] [place], [address] Calcium [Mass/Vol] 10.3 mg/dL Normal 7.6-11.0 [facility] Comment on above: Performed By: #### L [id number], [id number], [id number] #### [facility] [address] [place], [address] Chloride [Moles/Vol] 100 mmol/L Normal 98-108 [facility] Comment on above: Performed By: #### L 500.4050, [id number], L502.0250 #### [facility] [address] [place], [address] CO2 [Moles/Vol] 25.4 mmol/L Normal 21.0-32.0 [facility] Comment on above: Performed By: #### L 500.4050, [id number], L502.0250 #### [facility] [address] [place], [address] Creatinine [Mass/Vol] 0.97 mg/dL Normal 0.70-1.20 [facility] Comment on above: Performed By: #### L [id number], [id number], [id number] #### [facility] [address] [place], [address] GAP 14 Normal 5-15 [facility] Comment on above: Performed By: #### L [id number], [id number], [id number] #### [facility] [address] [place], [address] GFR/1.73 sq M.predicted among non-blacks MDRD (S/P/Bld) [Vol rate/Area] 71 mL/min/{1.73_m2} Normal >60 [facility] Comment on above: Result Comment: mL/m in/1.73m2 CKD-EPI Creatinine Equation (2020) Performed By: #### L 500.4050, L501.9985, L502.0250 #### [facility] [address] [place], [address] Globulin (S) [Mass/Vol] 3.6 g/dL Normal 2.2-4.2 [facility] Comment on above: Performed By: #### L 500.4050, L501.9985, L502.0250 #### [facility] [address] [place], [address] Glucose [Mass/Vol] 91 mg/dL Normal 70-99 [facility] Comment on above: Performed By: #### L 500.4050, L501.9985, L502.0250 #### [facility] [address] [place], [address] Potassium [Moles/Vol] 4.1 mmol/L Normal 3.3-5.1 [facility] Comment on above: Performed By: #### L 500.4050, L501.9985, L502.0250 #### [facility] [address] [place], [address] Sodium [Moles/Vol] 139 mmol/L Normal 133-145 [facility] Comment on above: Performed By: #### L 500.4050, L501.9985, L502.0250 #### [facility] [address] [place], [address] T PROT 8.1 g/dL Normal 5.9-8.4 [facility] Comment on above: Performed By: #### L 500.4050, L501.9985, L502.0250 #### [facility] [address] [place], [address] Urea nitrogen [Mass/Vol] 17 mg/dL Normal 4-19 [facility] Comment on above: Performed By: #### L 500.4050, L501.9985, L502.0250 #### [facility] [address] [place], [address] Glomerular filtration rate ( GFR) estimation/1.73 sq m using serum, plasma, or whole bOrdered By: Patric Willis on 11-27-2024 GFR/1.73 sq M.predicted among non-blacks MDRD (S/P/Bld) [Vol rate/Area] 71 mL/min/{1.73_m2} >60 [facility] Comment on above: mL/min/1.73m2 CKD-EP I Creatinine Equation (2020) Hemoglobin A1con 11-27-2024 HbA1c (Bld) [Mass fraction] 6.0 % High <=5.6 [facility] Comment on above: Result Comment: Norm al < 5.7 % Prediabetic 5.7 - 6.4 % Diabetic >or= 6.5 % Please note range changes. Performed By: #### L 500.4050, L501.9985, L502.0250 #### [facility] [address] [place], [address] Hemoglobin A1c percentageOrd ered By: Patric Willis on 11-27-2024 HbA1c (Bld) [Mass fraction] 6.0 % High <5.7 [facility] Comment on above: Normal < 5.7 % Predi abetic 5.7 - 6.4 % Diabetic >or= 6.5 % Please note range changes. Laboratory - Chemistry and C hemistry - challengeOrdered By: Patric Willis on 11-27-2024 AST [Catalytic activity/Vol] 32 U/L <32 [facility] Microalb:Creat Ratio,Random URon 11-27-2024 Creatinine [Mass/Vol] 170.00 mg/dL Normal 28.00- 217.0 0 [facility] Comment on above: Performed By: #### L 500.4050, L501.9985, L502.0250 #### [facility] [address] [place], [address] MALB:CREAT UNABLE TO CALCULATE Normal <30 mg/g CRE [facility] Comment on above: Performed By: #### L 500.4050, L501.9985, L502.0250 #### [facility] [address] [place], [address] MICROALBUMIN,UR < 12.0 Normal <20 mg/L [facility] Comment on above: Performed By: #### L 500.4050, L501.9985, L502.0250 #### [facility] [address] [place], [address] Microalbumin/creat ratio urO rdered By: Patric Willis on 11-27-2024 Urine microalbumin/creatinine ratio measurement UNABLE TO CALCULATE mg/g CRE <30 [facility] Potassium measurement (mass/ volume)Ordered By: Patric Willis on 11-27-2024 Potassium (Unsp spec) [Mass/Vol] 4.1 mmol/L 3.3-5.1 [facility] Random urine creatinine martine urement (mass/volume)Ordered By: Patric Willis on 11-27-2024 Creatinine Unsp time (U) [Mass/Vol] 170.00 mg/dL 28.00-217.0 0 [facility] Serum creatinine measurement (mass/volume)Ordered By: Patric Willis on 11-27-2024 Creatinine [Mass/Vol] 0.97 mg/dL 0.70-1.20 [facility] Serum globulin measurementOr dered By: Patric Willis on 11-27-2024 Globulin (S) [Mass/Vol] 3.6 g/dL 2.2-4.2 [facility] Serum glucose measurement (m ass/volume)Ordered By: Patric Willis on 11-27-2024 Glucose [Mass/Vol] 91 mg/dL 70-99 [facility] Serum or plasma alanine alba otransferase (ALT) measurementOrdered By: Patric Willis on 11-27-2024 ALT [Catalytic activity/Vol] 34 U/L <35 [facility] Serum or plasma albumin martine urement (mass/volume)Ordered By: Patric Willis on 11-27-2024 Albumin [Mass/Vol] 4.5 g/dL 3.5-5.0 [facility] Serum or plasma albumin/glob ulin mass ratioOrdered By: Patric Willis on 11-27-2024 Albumin/Globulin [Mass ratio] 1.2 {ratio} 0.9-2.4 [facility] Serum or plasma alkaline edd sphatase measurementOrdered By: Patric Willis on 11-27-2024 ALP [Catalytic activity/Vol] 86 U/L 35-104 [facility] Serum or plasma calcium martine urement (mass/volume)Ordered By: Patric Willis on 11-27-2024 Calcium [Mass/Vol] 10.3 mg/dL 7.6-11.0 [facility] Serum or plasma urea nitroge n measurement (mass/volume)Ordered By: Patric Willis on 11-27-2024 Urea nitrogen [Mass/Vol] 17 mg/dL 4-19 [facility] Sodium levelOrdered By: Trang Willis on 11-27-2024 Sodium [Moles/Vol] 139 mmol/L 133-145 [facility] Total proteinOrdered By: Angelina Willis on 11-27-2024 Protein [Mass/Vol] 8.1 g/dL 5.9-8.4 [facility] Urine albumin measurement [facility] detection limit of 20 mg/L or less (mass/volume)Ordered By: Patric Willis on 11-27-2024 Albumin DL <= 20 mg/L (U) [Mass/Vol] < 12.0 mg/L <20 mg/L [facility] Anion gap in Serum or Plasma Ordered By: Patric Willis on 09-11-2024 Anion gap [Moles/Vol] 12 mmol/L 5-15 [facility] BUN/creatinine ratioOrdered By: Patric Willis on 09-11-2024 Urea nitrogen/Creatinine [Mass ratio] 15.5 mg/mg 10-20 [facility] Bilirubin, totalOrdered By: Patric Willis on 09-11-2024 Bilirubin [Mass/Vol] 0.34 mg/dL 0.00-1.30 [facility] Carbon dioxide, total [Moles /volume] in Central venous bloodOrdered By: Patric Willis on 09-11-2024 CO2 [Moles/Vol] 26.4 mmol/L 21.0-32.0 [facility] Chloride assayOrdered By: Ra ida Willis on 09-11-2024 Chloride [Moles/Vol] 102 mmol/L 98-108 [facility] Comprehensive Metabolic Prof ilon 09-11-2024 Albumin [Mass/Vol] 4.3 g/dL Normal 3.5-5.0 [facility] Comment on above: Performed By: #### L 500.4050, L501.9985, L502.0250 #### [facility] [place], [place], [id number] Albumin/Globulin [Mass ratio] 1.2 {ratio} Normal 0.9-2.4 [facility] Comment on above: Performed By: #### L 500.4050, L501.9985, L502.0250 #### [facility] [address] [place], [address] ALK PHOS 83 U/L Normal 35-104 [facility] Comment on above: Performed By: #### L 500.4050, L501.9985, L502.0250 #### [facility] [address] [place], [address] ALT [Catalytic activity/Vol] 68 U/L High <=34 [facility] Comment on above: Performed By: #### L 500.4050, L501.9985, L502.0250 #### [facility] [address] [place], [address] AST [Catalytic activity/Vol] 54 U/L High <=31 [facility] Comment on above: Performed By: #### L 500.4050, L501.9985, L502.0250 #### [facility] [address] [place], [address] Bilirubin [Mass/Vol] 0.34 mg/dL Normal 0.00-1.30 [facility] Comment on above: Performed By: #### L 500.4050, L501.9985, L502.0250 #### [facility] [address] [place], [address] BUN/CRE 15.5 RATIO Normal 10-20 [facility] Comment on above: Performed By: #### L 500.4050, L501.9985, L502.0250 #### [facility] [address] [place], [address] Calcium [Mass/Vol] 10.0 mg/dL Normal 7.6-11.0 [facility] Comment on above: Performed By: #### L 500.4050, L501.9985, L502.0250 #### [facility] [address] [place], [address] Chloride [Moles/Vol] 102 mmol/L Normal 98-108 [facility] Comment on above: Performed By: #### L 500.4050, L501.9985, L502.0250 #### [facility] [address] [place], [address] CO2 [Moles/Vol] 26.4 mmol/L Normal 21.0-32.0 [facility] Comment on above: Performed By: #### L 500.4050, L501.9985, L502.0250 #### [facility] [address] [place], [address] Creatinine [Mass/Vol] 0.95 mg/dL Normal 0.70-1.20 [facility] Comment on above: Performed By: #### L 500.4050, L501.9985, L502.0250 #### [facility] [address] [place], [address] GAP 12 Normal 5-15 [facility] Comment on above: Performed By: #### L 500.4050, L501.9985, L502.0250 #### [facility] [address] [place], [address] GFR/1.73 sq M.predicted among non-blacks MDRD (S/P/Bld) [Vol rate/Area] 72 mL/min/{1.73_m2} Normal >60 [facility] Comment on above: Result Comment: mL/m in/1.73m2 CKD-EPI Creatinine Equation (2020) Performed By: #### L 500.4050, L501.9985, L502.0250 #### [facility] [address] [place], [address] Globulin (S) [Mass/Vol] 3.5 g/dL Normal 2.2-4.2 [facility] Comment on above: Performed By: #### L 500.4050, L501.9985, L502.0250 #### [facility] [address] [place], [address] Glucose [Mass/Vol] 109 mg/dL High 70-99 [facility] Comment on above: Performed By: #### L 500.4050, L501.9985, L502.0250 #### [facility] [address] [place], [address] Potassium [Moles/Vol] 4.0 mmol/L Normal 3.3-5.1 [facility] Comment on above: Performed By: #### L 500.4050, L501.9985, L502.0250 #### [facility] [address] [place], [address] Sodium [Moles/Vol] 141 mmol/L Normal 133-145 [facility] Comment on above: Performed By: #### L 500.4050, L501.9985, L502.0250 #### [facility] [address] [place], [address] T PROT 7.8 g/dL Normal 5.9-8.4 [facility] Comment on above: Performed By: #### L 500.4050, L501.9985, L502.0250 #### [facility] [address] [place], [address] Urea nitrogen [Mass/Vol] 15 mg/dL Normal 4-19 [facility] Comment on above: Performed By: #### L 500.4050, L501.9985, L502.0250 #### [facility] [address] [place], [address] Glomerular filtration rate ( GFR) estimation/1.73 sq m using serum, plasma, or whole bOrdered By: Patric Willis on 09-11-2024 GFR/1.73 sq M.predicted among non-blacks MDRD (S/P/Bld) [Vol rate/Area] 72 mL/min/{1.73_m2} >60 [facility] Comment on above: mL/min/1.73m2 CKD-EP I Creatinine Equation (2020) Hemoglobin A1con 09-11-2024 HbA1c (Bld) [Mass fraction] 6.2 % High <=5.6 [facility] Comment on above: Result Comment: Norm al < 5.7 % Prediabetic 5.7 - 6.4 % Diabetic >or= 6.5 % Please note range changes. Performed By: #### L 500.4050, L501.9985, L502.0250 #### [facility] [address] [place], [address] Hemoglobin A1c percentageOrd ered By: Patric Willis on 09-11-2024 HbA1c (Bld) [Mass fraction] 6.2 % High <5.7 [facility] Comment on above: Normal < 5.7 % Predi abetic 5.7 - 6.4 % Diabetic >or= 6.5 % Please note range changes. Laboratory - Chemistry and C hemistry - challengeOrdered By: Patric Willis on 09-11-2024 AST [Catalytic activity/Vol] 54 U/L High <32 [facility] Microalb:Creat Ratio,Random URon 09-11-2024 Creatinine [Mass/Vol] 253.00 mg/dL High 28.00- 217.0 0 [facility] Comment on above: Performed By: #### L 500.4050, L501.9985, L502.0250 #### [facility] [address] [place], [address] MALB:CREAT UNABLE TO CALCULATE Normal [facility] Comment on above: Performed By: #### L 500.4050, L501.9985, L502.0250 #### [facility] [address] [place], [address] MICROALBUMIN,UR < 12.0 Normal NO RANGE EST. [place] [facility] Comment on above: Performed By: #### L 500.4050, L501.9985, L502.0250 #### [facility] [place], [address] Microalbumin/creat ratio urO rdered By: Patric Willis on 09-11-2024 Urine microalbumin/creatinine ratio measurement UNABLE TO CALCULATE mg/g CRE [facility] Potassium measurement (mass/ volume)Ordered By: Patric Willis on 09-11-2024 Potassium (Unsp spec) [Mass/Vol] 4.0 mmol/L 3.3-5.1 [facility] Random urine creatinine martine urement (mass/volume)Ordered By: Patric Willis on 09-11-2024 Creatinine Unsp time (U) [Mass/Vol] 253.00 mg/dL High 28.00-217.0 0 [facility] Serum creatinine measurement (mass/volume)Ordered By: Patric Willis on 09-11-2024 Creatinine [Mass/Vol] 0.95 mg/dL 0.70-1.20 [facility] Serum globulin measurementOr dered By: Patric Willis on 09-11-2024 Globulin (S) [Mass/Vol] 3.5 g/dL 2.2-4.2 [facility] Serum glucose measurement (m ass/volume)Ordered By: Patric Willis on 09-11-2024 Glucose [Mass/Vol] 109 mg/dL High 70-99 [facility] Serum or plasma alanine alba otransferase (ALT) measurementOrdered By: Patric Willis on 09-11-2024 ALT [Catalytic activity/Vol] 68 U/L High <35 [facility] Serum or plasma albumin martine urement (mass/volume)Ordered By: Patric Willis on 09-11-2024 Albumin [Mass/Vol] 4.3 g/dL 3.5-5.0 [facility] Serum or plasma albumin/glob ulin mass ratioOrdered By: Patric Willis on 09-11-2024 Albumin/Globulin [Mass ratio] 1.2 {ratio} 0.9-2.4 [facility] Serum or plasma alkaline edd sphatase measurementOrdered By: Patric Willis on 09-11-2024 ALP [Catalytic activity/Vol] 83 U/L 35-104 [facility] Serum or plasma calcium martine urement (mass/volume)Ordered By: Patric Willis on 09-11-2024 Calcium [Mass/Vol] 10.0 mg/dL 7.6-11.0 [facility] Serum or plasma urea nitroge n measurement (mass/volume)Ordered By: Patric Willis on 09-11-2024 Urea nitrogen [Mass/Vol] 15 mg/dL 4-19 [facility] Sodium levelOrdered By: Trang Willis on 09-11-2024 Sodium [Moles/Vol] 141 mmol/L 133-145 [facility] Total proteinOrdered By: Angleina Willis on 09-11-2024 Protein [Mass/Vol] 7.8 g/dL 5.9-8.4 [facility] Urine albumin measurement [facility] detection limit of 20 mg/L or less (mass/volume)Ordered By: Patric Willis on 09-11-2024 Albumin DL <= 20 mg/L (U) [Mass/Vol] < 12.0 mg/L NO RANGE EST. [facility] Breast imaging reportOrdered By: Brant Bonds on 06-20-2024 Study report [facility] Imaging Services [address] [place] [address] SCRN MAMM (CAD)W/JULIANA BILAT MR#: [id number] Acct: [id number] Name: TERRI BEAUCHAMP Rep #: [id number] : 1975 F 49 From: Brennon Bonds MD PCP: ANGEL Isbell Status: REG CLI Study:SCRN MAMM (CAD)W/JULIANA BILAT Date of Exa m: 06/20/24 Exam# [id number] Ordering Dr: Patric Rice EXAM: SCRN MAMM (CAD)W/JULIANA BILAT DATE: 06/20/2024 CLINICAL HISTORY: F, Age 49 y/o , SCREENING Aunt with breast cancer. BREAST CANCER RISK ASSESSMENT: Not assessed. TECHNIQUE: Bilateral screening digital breast tomosynthesis with 2D and 3D images. Computeraided detection. COMPARISON: Prior exam(s) dated June 17 2023 prior sonogram dated June 17, 2023.. FINDINGS: TISSUE DENSITY: The breast tissue is composed of scattered area of fibroglandular density. Bilateral Breast Mammographic Findings: No significant masses, calcifications or other abnormalities are identified. Stable 1 cm nodular density in the medial retroareolar region of the left breast. This was demonstrated to be a small benign-appearing lymph node on prior sonogram. BI/SCRN MAMM (CAD)W/JULIANA BILAT IMPRESSION: Right Breast: BIRADS 1 NEGATIVE. Left Breast: BIRADS 2 BENIGN FINDING. OVERALL FINAL ASSESSMENT: BIRADS 2 BENIGN FINDING RECOMMENDATION: Routine annual follow-up in 1 Year A letter with findings and recommendations will be mailed to the patient. Reading Location: [place] [address] CC: ANGEL Isbell ~ Bag Machine Adjuster: Signed [facility] SCRN MAMM (CAD)W/JULIANA BILATo n 06-20-2024 SCRN MAMM (CAD)W/JULIANA BILAT [facility] Imaging Services [address] [place] [id number] SCRN MAMM (CAD)W/JULIANA BILAT MR#: [id number] Acct: [id number] Name: TERRI BEAUCHAMP Rep #: [id number] : 1975 F 49 From: Brant martin MD PCP: ANGEL Isbell Status: [facility] Study: SCRN MAMM (CAD)W/JULIANA BILAT Date of Exam: 06/06 07/30 Exam# [id number] Ordering Dr: Patric Willis EXAM: SCRN MAMM (CAD)W/JULIANA BILAT DATE: 06/20/2024 CLINICAL HISTORY: F, Age 49 y/o , SCREENING Aunt with breast cancer. BREAST CANCER RISK ASSESSMENT: Not assessed. TECHNIQUE: Bilateral screening digital breast tomosynthesis with 2D and 3D images. Computer aided detection. COMPARISON: Prior exam(s) dated June 17 2023 prior sonogram dated June 17, 2023.. FINDINGS: TISSUE DENSITY: The breast tissue is composed of scattered area of fibroglandular density. Bilateral Breast Mammographic Findings: No significant masses, calcifications or other abnormalities are identified. Stable 1 cm nodular density in the medial retroareolar region of the left breast. This was demonstrated to be a small benign-appearing lymph node on prior sonogram. BI/SCRN MAMM (CAD)W/JULIANA BILAT IMPRESSION: Right Breast: BIRADS 1 NEGATIVE. Left Breast: BIRADS 2 BENIGN FINDING. OVERALL FINAL ASSESSMENT: BIRADS 2 BENIGN FINDING RECOMMENDATION: Routine annual follow-up in 1 Year A letter with findings and recommendations will be mailed to the patient. Reading Location: [facility] CC: ANGEL Isbell Bag Machine Adjuster: Signed Normal [facility] [id number] DOrdered By: Sam Willis on 04-28-2024 Vitamin D 25-Hydroxy 44.2 ng/mL [facility] Comment on above: Vitamin D 25(OH) Sta tus Range Deficiency <20 ng/mL (50nmol/L) Insufficiency 20 - 30 ng/mL (50 - 75 nmol/L) Sufficiency 30 - 100 ng/mL (75 - 250 nmol/L) Toxicity >100 ng/mL (>250 nmol/L) Absolute neutrophil countOrd ered By: Patric Willis on 04-28-2024 Neutrophils (Bld) [#/Vol] 4.2 10*3/uL 2.0-7.7 [facility] Albumin to globulin ratioOrd ered By: Patric Willis on 04-28-2024 Albumin/Globulin [Mass ratio] 0.8 {ratio} Low 0.9-2.4 [facility] Basophil percentageOrdered B y: Patric Willis on 04-28-2024 Basophils/100 WBC (Bld) 1.2 % High 0-1 [facility] Bilirubin, totalOrdered By: Patric Willis on 04-28-2024 Bilirubin [Mass/Vol] 0.60 mg/dL 0.20-1.00 [facility] Comment on above: For patients on eltr ombopag therapy, use of Dimension [place] TBIL is not recommended. Blood urea nitrogen (BUN)/cr eatinine ratioOrdered By: Patric Willis on 04-28-2024 Urea nitrogen/Creatinine [Mass ratio] 14.1 mg/mg - [facility] CBC W/Diff, Automatedon 04-09 Absolute Lymph 1.46 X10 3/uL Normal 0.83-4.51 [facility] Comment on above: Performed By: #### L 500.4100, L506.1000, L503.6075, L503.0105, L503.6550, L503.6150, L501.9985, L501.9520, L100.0100, L506.0400, L501.5200, L500.4050 #### [facility] [address] [place], [address] Absolute Neut 4.2 X10 3/uL Normal 2.0-7.7 [facility] Comment on above: Performed By: #### L 500.4100, L506.1000, L503.6075, L503.0105, L503.6550, L503.6150, L501.9985, L501.9520, L100.0100, L506.0400, L501.5200, L500.4050 #### [facility] [address] [place], [address] Basophils/100 WBC (Bld) 1.2 % High 0-1 [facility] Comment on above: Performed By: #### L 500.4100, L506.1000, L503.6075, L503.0105, L503.6550, L503.6150, L501.9985, L501.9520, L100.0100, L506.0400, L501.5200, L500.4050 #### [facility] [address] [place], [address] Eosinophils/100 WBC (Bld) 2.0 % Normal 0-5 [facility] Comment on above: Performed By: #### L 500.4100, L506.1000, L503.6075, L503.0105, L503.6550, L503.6150, L501.9985, L501.9520, L100.0100, L506.0400, L501.5200, L500.4050 #### [facility] [address] [place], [place], [id number] Erythrocyte distribution width (RBC) [Ratio] 13.9 % Normal 11.6-14.6 [facility] Comment on above: Performed By: #### L 500.4100, L506.1000, L503.6075, L503.0105, L503.6550, L503.6150, L501.9985, L501.9520, L100.0100, L506.0400, L501.5200, L500.4050 #### [facility] [address] [place], [place], [id number] Hematocrit (Bld) [Volume fraction] 40.7 % Normal 37-47 [facility] Comment on above: Performed By: #### L 500.4100, L506.1000, L503.6075, L503.0105, L503.6550, L503.6150, L501.9985, L501.9520, L100.0100, L506.0400, L501.5200, L500.4050 #### [facility] [address] [place], [place], [id number] Hemoglobin (Bld) [Mass/Vol] 13.1 g/dL Normal 12.0-15.0 [facility] Comment on above: Performed By: #### L 500.4100, L506.1000, L503.6075, L503.0105, L503.6550, L503.6150, L501.9985, L501.9520, L100.0100, L506.0400, L501.5200, L500.4050 #### [facility] [address] [place], [address] IG% 0.300 Normal 0.0-0.9 [facility] Comment on above: Result Comment: IG% - Immature Granulocytes (promyelocytes, myelocytes and metamyelocytes) > 1% indicates that a LEFT SHIFT is Present. Performed By: #### L 500.4100, L506.1000, L503.6075, L503.0105, L503.6550, L503.6150, L501.9985, L501.9520, L100.0100, L506.0400, L501.5200, L500.4050 #### [facility] [address] [facility] [place], [address] Lymphocytes/100 WBC (Bld) 22.6 % Normal 19-41 [facility] Comment on above: Performed By: #### L 500.4100, L506.1000, L503.6075, L503.0105, L503.6550, L503.6150, L501.9985, L501.9520, L100.0100, L506.0400, L501.5200, L500.4050 #### [facility] [address] [facility] [place], [address] MCH (RBC) [Entitic mass] 28.4 pg Normal 27.0-32.0 [facility] Comment on above: Performed By: #### L 500.4100, L506.1000, L503.6075, L503.0105, L503.6550, L503.6150, L501.9985, L501.9520, L100.0100, L506.0400, L501.5200, L500.4050 #### [facility] [address] [facility] [place], [address] MCHC (RBC) [Mass/Vol] 32.2 g/dL Normal 32-36 [facility] Comment on above: Performed By: #### L 500.4100, L506.1000, L503.6075, L503.0105, L503.6550, L503.6150, L501.9985, L501.9520, L100.0100, L506.0400, L501.5200, L500.4050 #### [facility] [address] [place], [address] MCV (RBC) [Entitic vol] 88.1 fL Normal 81-99 [facility] Comment on above: Performed By: #### L 500.4100, L506.1000, L503.6075, L503.0105, L503.6550, L503.6150, L501.9985, L501.9520, L100.0100, L506.0400, L501.5200, L500.4050 #### [facility] [address] [facility] [place], [address] Monocytes/100 WBC (Bld) 8.2 % Normal 0-10 [facility] Comment on above: Performed By: #### L 500.4100, L506.1000, L503.6075, L503.0105, L503.6550, L503.6150, L501.9985, L501.9520, L100.0100, L506.0400, L501.5200, L500.4050 #### [facility] [address] [place], [address] Neutrophils/100 WBC (Bld) 65.7 % Normal 47-70 [facility] Comment on above: Performed By: #### L 500.4100, L506.1000, L503.6075, L503.0105, L503.6550, L503.6150, L501.9985, L501.9520, L100.0100, L506.0400, L501.5200, L500.4050 #### [facility] [address] [place], [address] Nucleated RBC (Bld) [#/Vol] 0 10*3/uL Normal 0-5 [facility] Comment on above: Performed By: #### L 500.4100, L506.1000, L503.6075, L503.0105, L503.6550, L503.6150, L501.9985, L501.9520, L100.0100, L506.0400, L501.5200, L500.4050 #### [facility] [address] [place], [address] Platelet mean volume (Bld) [Entitic vol] 9.4 fL Normal 6.2-12.0 [facility] Comment on above: Performed By: #### L 500.4100, L506.1000, L503.6075, L503.0105, L503.6550, L503.6150, L501.9985, L501.9520, L100.0100, L506.0400, L501.5200, L500.4050 #### [facility] [address] [place], [address] Platelets (Bld) [#/Vol] 328 10*3/uL Normal 150-450 [facility] Comment on above: Performed By: #### L 500.4100, L506.1000, L503.6075, L503.0105, L503.6550, L503.6150, L501.9985, L501.9520, L100.0100, L506.0400, L501.5200, L500.4050 #### [facility] [address] [place], [address] RBC (Bld) [#/Vol] 4.62 10*6/uL Normal 4.2-5.4 [facility] Comment on above: Performed By: #### L 500.4100, L506.1000, L503.6075, L503.0105, L503.6550, L503.6150, L501.9985, L501.9520, L100.0100, L506.0400, L501.5200, L500.4050 #### [facility] [address] [place], [place], [id number] RDW SD 44.7 fl High 35.1-43.9 [facility] Comment on above: Performed By: #### L 500.4100, L506.1000, L503.6075, L503.0105, L503.6550, L503.6150, L501.9985, L501.9520, L100.0100, L506.0400, L501.5200, L500.4050 #### [facility] [address] [place], [place], [id number] WBC (Bld) [#/Vol] 6.5 10*3/uL Normal 4.4-11.0 [facility] Comment on above: Performed By: #### L 500.4100, L506.1000, L503.6075, L503.0105, L503.6550, L503.6150, L501.9985, L501.9520, L100.0100, L506.0400, L501.5200, L500.4050 #### [facility] [address] [place], [place], [id number] Carbon dioxide measurementOr dered By: Patric Willis on 04-28-2024 CO2 [Moles/Vol] 29.0 mmol/L 21.0-32.0 [facility] Chloride measurementOrdered By: Patric Willis on 04-28-2024 Chloride [Moles/Vol] 102 mmol/L 98-107 [facility] Comprehensive Metabolic Prof ilon 04-28-2024 Albumin [Mass/Vol] 3.8 g/dL Normal 3.2-5.0 [facility] Comment on above: Order Comment: FT4 Performed By: #### L 500.4100, L506.1000, L503.6075, L503.0105, L503.6550, L503.6150, L501.9985, L501.9520, L100.0100, L506.0400, L501.5200, L500.4050 #### [facility] [address] [place], [address] Albumin/Globulin [Mass ratio] 0.8 {ratio} Low 0.9-2.4 [facility] Comment on above: Order Comment: FT4 Performed By: #### L 500.4100, L506.1000, L503.6075, L503.0105, L503.6550, L503.6150, L501.9985, L501.9520, L100.0100, L506.0400, L501.5200, L500.4050 #### [facility] [address] [place], [address] ALK P 87 U/L Normal 45-117 [facility] Comment on above: Order Comment: FT4 Performed By: #### L 500.4100, L506.1000, L503.6075, L503.0105, L503.6550, L503.6150, L501.9985, L501.9520, L100.0100, L506.0400, L501.5200, L500.4050 #### [facility] [address] [place], [address] ALT [Catalytic activity/Vol] 136 U/L High 13-56 [facility] Comment on above: Order Comment: FT4 Performed By: #### L 500.4100, L506.1000, L503.6075, L503.0105, L503.6550, L503.6150, L501.9985, L501.9520, L100.0100, L506.0400, L501.5200, L500.4050 #### [facility] [address] [place], [address] AST [Catalytic activity/Vol] 144 U/L High 15-37 [facility] Comment on above: Order Comment: FT4 Performed By: #### L 500.4100, L506.1000, L503.6075, L503.0105, L503.6550, L503.6150, L501.9985, L501.9520, L100.0100, L506.0400, L501.5200, L500.4050 #### [facility] [address] [place], [address] Bilirubin [Mass/Vol] 0.60 mg/dL Normal 0.20-1.00 [facility] Comment on above: Order Comment: FT4 Result Comment: For patients on eltrombopag therapy, use of Dimension [place] TBIL is not recommended. Performed By: #### L 500.4100, L506.1000, L503.6075, L503.0105, L503.6550, L503.6150, L501.9985, L501.9520, L100.0100, L506.0400, L501.5200, L500.4050 #### [facility] [address] [place], [address] BUN/CRE 14.1 RATIO Normal 10-20 [facility] Comment on above: Order Comment: FT4 Performed By: #### L 500.4100, L506.1000, L503.6075, L503.0105, L503.6550, L503.6150, L501.9985, L501.9520, L100.0100, L506.0400, L501.5200, L500.4050 #### [facility] [address] [place], [address] CA,Total 9.9 mg/dL Normal 8.5-10.1 [facility] Comment on above: Order Comment: FT4 Performed By: #### L 500.4100, L506.1000, L503.6075, L503.0105, L503.6550, L503.6150, L501.9985, L501.9520, L100.0100, L506.0400, L501.5200, L500.4050 #### [facility] [address] [place], [address] Chloride [Moles/Vol] 102 mmol/L Normal 98-107 [facility] Comment on above: Order Comment: FT4 Performed By: #### L 500.4100, L506.1000, L503.6075, L503.0105, L503.6550, L503.6150, L501.9985, L501.9520, L100.0100, L506.0400, L501.5200, L500.4050 #### [facility] [address] [place], [address] CO2 [Moles/Vol] 29.0 mmol/L Normal 21.0-32.0 [facility] Comment on above: Order Comment: FT4 Performed By: #### L 500.4100, L506.1000, L503.6075, L503.0105, L503.6550, L503.6150, L501.9985, L501.9520, L100.0100, L506.0400, L501.5200, L500.4050 #### [facility] [address] [place], [address] Creatinine [Mass/Vol] 0.85 mg/dL Normal 0.55-1.02 [facility] Comment on above: Order Comment: FT4 Result Comment: The validity of the calculated GFR GFRAA in patients over 70 years has not been determined. Clinical correlation is essential. Performed By: #### L 500.4100, L506.1000, L503.6075, L503.0105, L503.6550, L503.6150, L501.9985, L501.9520, L100.0100, L506.0400, L501.5200, L500.4050 #### [facility] [address] [place], [address] EST GFR - AA 91 mL/min Normal >60 [facility] Comment on above: Order Comment: FT4 Result Comment: Afri can [place] GFR Calc Performed By: #### L 500.4100, L506.1000, L503.6075, L503.0105, L503.6550, L503.6150, L501.9985, L501.9520, L100.0100, L506.0400, L501.5200, L500.4050 #### [facility] [address] [place], [place], [phone] (275) GAP 6 Normal 5-15 [facility] Comment on above: Order Comment: FT4 Performed By: #### L 500.4100, L506.1000, L503.6075, L503.0105, L503.6550, L503.6150, L501.9985, L501.9520, L100.0100, L506.0400, L501.5200, L500.4050 #### [facility] [address] [place], [place], [id number] GFR/1.73 sq M.predicted among non-blacks MDRD (S/P/Bld) [Vol rate/Area] 75 mL/min/{1.73_m2} Normal >60 [facility] Comment on above: Order Comment: FT4 Result Comment: Non- GFR Calc Performed By: #### L 500.4100, L506.1000, L503.6075, L503.0105, L503.6550, L503.6150, L501.9985, L501.9520, L100.0100, L506.0400, L501.5200, L500.4050 #### [facility] [address] [place], [place], [phone] (655) Globulin (S) [Mass/Vol] 4.6 g/dL High 2.2-4.2 [facility] Comment on above: Order Comment: FT4 Performed By: #### L 500.4100, L506.1000, L503.6075, L503.0105, L503.6550, L503.6150, L501.9985, L501.9520, L100.0100, L506.0400, L501.5200, L500.4050 #### [facility] [address] [place], [address] Glucose [Mass/Vol] 155 mg/dL High 74-106 [facility] Comment on above: Order Comment: FT4 Result Comment: Fast ing Glucose result greater than or equal to 126 mg/dL suggests DIABETES MELLITUS per A.D.A. criteria. Performed By: #### L 500.4100, L506.1000, L503.6075, L503.0105, L503.6550, L503.6150, L501.9985, L501.9520, L100.0100, L506.0400, L501.5200, L500.4050 #### [facility] [address] [place], [place], [id number] (435) Potassium [Moles/Vol] 4.0 mmol/L Normal 3.5-5.1 [facility] Comment on above: Order Comment: FT4 Performed By: #### L 500.4100, L506.1000, L503.6075, L503.0105, L503.6550, L503.6150, L501.9985, L501.9520, L100.0100, L506.0400, L501.5200, L500.4050 #### [facility] [address] [place], [address] Sodium [Moles/Vol] 137 mmol/L Normal 136-145 [facility] Comment on above: Order Comment: FT4 Performed By: #### L 500.4100, L506.1000, L503.6075, L503.0105, L503.6550, L503.6150, L501.9985, L501.9520, L100.0100, L506.0400, L501.5200, L500.4050 #### [facility] [address] [place], [place], [id number] T PROT 8.4 g/dL High 6.4-8.2 [facility] Comment on above: Order Comment: FT4 Performed By: #### L 500.4100, L506.1000, L503.6075, L503.0105, L503.6550, L503.6150, L501.9985, L501.9520, L100.0100, L506.0400, L501.5200, L500.4050 #### [facility] [address] [place], [address] Urea nitrogen [Mass/Vol] 12 mg/dL Normal 7-18 [facility] Comment on above: Order Comment: FT4 Performed By: #### L 500.4100, L506.1000, L503.6075, L503.0105, L503.6550, L503.6150, L501.9985, L501.9520, L100.0100, L506.0400, L501.5200, L500.4050 #### [facility] [address] [place], [address] Direct serum free thyroxine (FT4) measurementOrdered By: Patric Willis on 04-28-2024 Free T4 [Mass/Vol] 0.91 ng/dL 0.76-1.46 [facility] Eosinophil percentageOrdered By: Patric Willis on 04-28-2024 Eosinophils/100 WBC (Bld) 2.0 % 0-5 [facility] Erythrocyte distribution wid th (RBC) [Ratio]Ordered By: Patric Willis on 04-28-2024 Erythrocyte distribution width (RBC) [Entitic vol] 44.7 fL High 35.1-43.9 [facility] Erythrocyte distribution wid th ratioOrdered By: Patric Willis on 04-28-2024 Erythrocyte distribution width (RBC) [Ratio] 13.9 % 11.6-14.6 [facility] Estimated glomerular filtrat ion rate (GFR) AmericanOrdered By: Patric Willis on 04-28-2024 Estimated GFR (MDRD) Amer 91 mL/min >60 [facility] Comment on above: GFR Calc Ferritinon 04-28-2024 Ferritin [Mass/Vol] 115 ng/mL Normal 8-252 [facility] Comment on above: Performed By: #### L 500.4050, L501.9985, L502.0250 #### [facility] [address] [place], [place], [id number] Ferritin measurementOrdered By: Patric Willis on 04-28-2024 Ferritin [Mass/Vol] 115 ng/mL 8-252 [facility] Glomerular filtration rate ( GFR) estimationOrdered By: Patric Willis on 04-28-2024 Estimated GFR (MDRD) Non-Af Amer 75 mL/min >60 [facility] Comment on above: Non- GFR Calc Glucose measurementOrdered B y: Patric Willis on 04-28-2024 Glucose [Mass/Vol] 155 mg/dL High 74-106 [facility] Comment on above: Fasting Glucose resu lt greater than or equal to 126 mg/dL suggests DIABETES MELLITUS per A.D.A. criteria. Hematocrit Auto (Bld) [Volum e fraction]Ordered By: Patric Willis on 04-28-2024 Hematocrit (Bld) [Volume fraction] 40.7 % 37-47 [facility] Hemoglobin A1con 04-28-2024 HbA1c (Bld) [Mass fraction] 7.0 % High 3.8-5.6 [facility] Comment on above: Result Comment: Norm al < 5.7 % Prediabetic 5.7 - 6.4 % Diabetic >or= 6.5 % Please note range changes. Performed By: #### L 500.4050, L501.9985, L502.0250 #### [facility] [address] [place], [place], [id number] Hemoglobin A1c percentageOrd ered By: Patric Willis on 04-28-2024 HbA1c (Bld) [Mass fraction] 7.0 % High 3.8-5.6 [facility] Comment on above: Normal < 5.7 % Predi abetic 5.7 - 6.4 % Diabetic >or= 6.5 % Please note range changes. Hemoglobin measurementOrdere d By: Patric Willis on 04-28-2024 Hemoglobin (Bld) [Mass/Vol] 13.1 g/dL 12.0-15.0 [facility] High density lipoprotein (HD L) measurementOrdered By: Patric Willis on 04-28-2024 Cholesterol in HDL [Mass/Vol] 61 mg/dL >40 [facility] Comment on above: The drugs N-Acetylcy steine and Metamizole may falsely depress this assay. Reference Range HDL <40 mg/dL Low HDL Cholesterol HDL >or= 60 mg/dL High HDL Cholesterol Immature granulocytes/100 WB C Auto (Bld)Ordered By: Patric Willis on 04-28-2024 Immature granulocytes/100 WBC (Bld) 0.300 % 0.0-0.9 [facility] Comment on above: IG% - Immature Granu locytes (promyelocytes, myelocytes and metamyelocytes) > 1% indicates that a LEFT SHIFT is Present. Ironon 04-28-2024 Iron [Mass/Vol] 56 ug/dL Normal 50-170 [facility] Comment on above: Order Comment: FT4 Performed By: #### L 500.4050, L501.9985, L502.0250 #### [facility] [address] [place], [place], [id number] Iron (Unsp spec) [Mass/Mass] Ordered By: Patric Willis on 04-28-2024 Iron [Mass/Vol] 56 ug/dL 50-170 [facility] Iron Binding Capacity,Totalo n 04-28-2024 TIBC 473 ug/dL High 250-450 [facility] Comment on above: Performed By: #### L 500.4050, L501.9985, L502.0250 #### [facility] [address] [place], [place], [id number] Laboratory - Chemistry and C hemistry - challengeOrdered By: Patric Willis on 04-28-2024 AST [Catalytic activity/Vol] 144 U/L High 15-37 [facility] Lipid Profileon 04-28-2024 Cholesterol [Mass/Vol] 205 mg/dL High 200 [facility] Comment on above: Result Comment: <200 mg/dL Desirable 200-240 mg/dL Borderline >240 mg/dL High Risk Performed By: #### L 500.4100, L506.1000, L503.6075, L503.0105, L503.6550, L503.6150, L501.9985, L501.9520, L100.0100, L506.0400, L501.5200, L500.4050 #### [facility] [address] [place], [address] Cholesterol in HDL [Mass/Vol] 61 mg/dL Normal [facility] Comment on above: Result Comment: The drugs N-Acetylcysteine and Metamizole may falsely depress this assay. Reference Range HDL <40 mg/dL Low HDL Cholesterol HDL >or= 60 mg/dL High HDL Cholesterol Performed By: #### L 500.4100, L506.1000, L503.6075, L503.0105, L503.6550, L503.6150, L501.9985, L501.9520, L100.0100, L506.0400, L501.5200, L500.4050 #### [facility] [address] [place], [address] Cholesterol in LDL [Mass/Vol] 115 mg/dL Normal 0-130 [facility] Comment on above: Performed By: #### L 500.4100, L506.1000, L503.6075, L503.0105, L503.6550, L503.6150, L501.9985, L501.9520, L100.0100, L506.0400, L501.5200, L500.4050 #### [facility] [address] [place], [address] Cholesterol in VLDL [Mass/Vol] 29 mg/dL Normal 5-40 [facility] Comment on above: Performed By: #### L 500.4100, L506.1000, L503.6075, L503.0105, L503.6550, L503.6150, L501.9985, L501.9520, L100.0100, L506.0400, L501.5200, L500.4050 #### [facility] [address] [place], [place], [id number] Triglyceride [Mass/Vol] 143 mg/dL Normal [facility] Comment on above: Result Comment: The drugs N-Acetylcysteine and Metamizole may falsely depress this assay. Serum Triglycerides Reference Interval Normal <150 mg/dL Borderline high 150 - 199 mg/dL High 200 - 499 mg/dL Very High > or = 500 mg/dL Performed By: #### L 500.4100, L506.1000, L503.6075, L503.0105, L503.6550, L503.6150, L501.9985, L501.9520, L100.0100, L506.0400, L501.5200, L500.4050 #### [facility] [address] [place], [place], [id number] Low density lipoprotein (LDL ) cholesterol measurementOrdered By: Patric Willis on 04-28-2024 Cholesterol in LDL [Mass/Vol] 115 mg/dL 0-130 [facility] Lymphocytes Auto (Unsp spec) [#/Vol]Ordered By: Patric Willis on 04-28-2024 Lymphocytes (Bld) [#/Vol] 1.46 10*3/uL 0.83-4.5 1 [facility] Lymphocytes/100 WBC Auto (Un sp spec)Ordered By: Patric Willis on 04-28-2024 Lymphocytes/100 WBC (Bld) 22.6 % 19-41 [facility] MCV (mean corpuscular volume ) determinationOrdered By: Patric Willis on 04-28-2024 MCV (RBC) [Entitic vol] 88.1 fL 81-99 [facility] Magnesiumon 04-28-2024 Magnesium [Mass/Vol] 2.1 mg/dL Normal 1.6-2.6 [facility] Comment on above: Performed By: #### L 500.4100, L506.1000, L503.6075, L503.0105, L503.6550, L503.6150, L501.9985, L501.9520, L100.0100, L506.0400, L501.5200, L500.4050 #### [facility] [place], [address] Magnesium measurementOrdered By: Patric Willis on 04-28-2024 Magnesium [Mass/Vol] 2.1 mg/dL 1.6-2.6 [facility] Mean corpuscular hemoglobin (MCH) determinationOrdered By: Patric Willis on 04-28-2024 MCH (RBC) [Entitic mass] 28.4 pg 27.0-32.0 [facility] Mean corpuscular hemoglobin concentration (MCHC) determinationOrdered By: Patric Willis on 04-28-2024 MCHC (RBC) [Mass/Vol] 32.2 g/dL 32-36 [facility] Mean platelet volume determi nationOrdered By: Patric Willis on 04-28-2024 Platelet mean volume (Bld) [Entitic vol] 9.4 fL 6.2-12.0 [facility] Monocyte percentageOrdered B y: Patric Willis on 04-28-2024 Monocytes/100 WBC (Bld) 8.2 % 0-10 [facility] Neutrophil percentageOrdered By: Patric Willis on 04-28-2024 Neutrophils/100 WBC (Bld) 65.7 % 47-70 [facility] Nucleated red blood cell per centageOrdered By: Patric Willis on 04-28-2024 Nucleated RBC/100 WBC (Bld) [Ratio] 0 % 0-5 [facility] Platelet countOrdered By: Ra ida Willis on 04-28-2024 Platelets (Bld) [#/Vol] 328 10*3/uL 150-450 [facility] Potassium measurementOrdered By: Patric Willis on 04-28-2024 Potassium [Moles/Vol] 4.0 mmol/L 3.5-5.1 [facility] RBC Auto (Bld) [#/Vol]Ordere d By: Patric Willis on 04-28-2024 RBC (Bld) [#/Vol] 4.62 10*6/uL 4.2-5.4 [facility] Serum anion gap measurementO rdered By: Patric Willis on 04-28-2024 Anion gap [Moles/Vol] 6 mmol/L 5-15 [facility] Serum globulin measurementOr dered By: Patric Willis on 04-28-2024 Globulin (S) [Mass/Vol] 4.6 g/dL High 2.2-4.2 [facility] Serum or plasma alanine alba otransferase (ALT) measurementOrdered By: Patric Willis on 04-28-2024 ALT [Catalytic activity/Vol] 136 U/L High 13-56 [facility] Serum or plasma albumin martine urement (mass/volume)Ordered By: Patric Willis on 04-28-2024 Albumin [Mass/Vol] 3.8 g/dL 3.2-5.0 [facility] Serum or plasma alkaline edd sphatase measurementOrdered By: Patric Willis on 04-28-2024 ALP [Catalytic activity/Vol] 87 U/L 45-117 [facility] Serum or plasma calcium martine urement (mass/volume)Ordered By: Patric Willis on 04-28-2024 Calcium [Mass/Vol] 9.9 mg/dL 8.5-10.1 [facility] Serum or plasma cholesterol measurement (mass/volume)Ordered By: Patric Willis on 04-28-2024 Cholesterol [Mass/Vol] 205 mg/dL High <200 [facility] Comment on above: <200 mg/dL Desirable 200-240 mg/dL Borderline >240 mg/dL High Risk Serum or plasma creatinine m easurement (mass/volume)Ordered By: Patric Willis on 04-28-2024 Creatinine [Mass/Vol] 0.85 mg/dL 0.55-1.02 [facility] Comment on above: The validity of the calculated GFR & GFRAA in patients over 70 years has not been determined. Clinical correlation is essential. Serum or plasma urea nitroge n measurement (mass/volume)Ordered By: Patric Willis on 04-28-2024 Urea nitrogen [Mass/Vol] 12 mg/dL 7-18 [facility] Sodium levelOrdered By: Trang Willis on 04-28-2024 Sodium [Moles/Vol] 137 mmol/L 136-145 [facility] T4 Free Directon 04-28-2024 T4 FREE DIRECT 0.91 ng/dL Normal 0.76-1.46 [facility] Comment on above: Order Comment: FT4 Performed By: #### L 500.4050, L501.9985, L502.0250 #### [facility] [address] [place], [address] TIBCOrdered By: Patric senior on 04-28-2024 Total Iron Binding Capacity 473 ug/dL High 250-450 [facility] TSH QnOrdered By: Patric love on 04-28-2024 Thyroid Stimulating Hormone (TSH) 2.680 uIU/mL 0.358-3.740 [facility] Thyroid Stim Hormone (TSH)on 04-28-2024 TSH 2.680 uIU/mL Normal 0.358-3.740 [facility] Comment on above: Performed By: #### L 500.4100, L506.1000, L503.6075, L503.0105, L503.6550, L503.6150, L501.9985, L501.9520, L100.0100, L506.0400, L501.5200, L500.4050 #### [facility] [address] [place], [address] Total proteinOrdered By: Angelina Willis on 04-28-2024 Protein [Mass/Vol] 8.4 g/dL High 6.4-8.2 [facility] Triglycerides measurementOrd ered By: Patric Willis on 04-28-2024 Triglyceride [Mass/Vol] 143 mg/dL <199 [facility] Comment on above: The drugs N-Acetylcy steine and Metamizole may falsely depress this assay.Serum Triglycerides Reference Interval Normal <150 mg/dL Borderline high 150 - 199 mg/dL High 200 - 499 mg/dL Very High > or = 500 mg/dL Very low density lipoprotein (VLDL) cholesterol measurementOrdered By: Patric Willis on 04-28-2024 VLDL Cholesterol 29 mg/dL 5-40 [facility] Vitamin B12on 04-28-2024 Cobalamin (Vitamin B12) [Mass/Vol] 289 pg/mL Normal 211-911 [facility] Comment on above: Performed By: #### L 500.4100, L506.1000, L503.6075, L503.0105, L503.6550, L503.6150, L501.9985, L501.9520, L100.0100, L506.0400, L501.5200, L500.4050 #### [facility] [address] [place], [place], [id number] Vitamin B12 measurementOrder ed By: Patric Willis on 04-28-2024 Cobalamin (Vitamin B12) [Mass/Vol] 289 pg/mL 211-911 [facility] Vitamin D,25 Hydroxyon 04-28 Vitamin D 25-OH 44.2 ng/mL Normal [facility] Comment on above: Result Comment: Vernell min D 25(OH) Status Range Deficiency <20 ng/mL (50nmol/L) Insufficiency 20 - 30 ng/mL (50 - 75 nmol/L) Sufficiency 30 - 100 ng/mL (75 - 250 nmol/L) Toxicity >100 ng/mL (>250 nmol/L) Performed By: #### L 500.4100, L506.1000, L503.6075, L503.0105, L503.6550, L503.6150, L501.9985, L501.9520, L100.0100, L506.0400, L501.5200, L500.4050 #### [facility] [address] [place], [place], [id number] White blood cell (WBC) count Ordered By: Patric Willis on 04-28-2024 WBC (Bld) [#/Vol] 6.5 10*3/uL 4.4-11.0 [facility] DRUG MONITOR, LADY, KATARZYNA, NESS NEon 04-23-2024 Alphahydroxyalprazolam Negative Normal <25 [facility] Comment on above: Performed By: #### 3 9343, 42157, 27860, 69792, 64549, 44228, 17860, 27462 #### [facility] [place] [address] Technical Sales Consultant: Nigel Salazar MD Alphahydroxymidazolam Negative Normal <[address] [facility] Comment on above: Performed By: #### 3 9343, 41310, 36401, 99383, 62896, 82598, 13257, 86470 #### [facility] [place] [address] Technical Sales Consultant: Nigel Salazar MD Alphahydroxytriazolam Negative Normal <[address] [facility] Comment on above: Performed By: #### 3 9343, 53096, 58112, 51832, 87031, 74345, 30001, 07282 #### [facility] [place] [address] Technical Sales Consultant: Nigel Salazar MD Aminoclonazepam Negative Normal <25 [facility] Comment on above: Performed By: #### 3 9343, 11223, 30508, 38119, 74681, 28417, 10506, 03528 #### [facility] [place] [address] Technical Sales Consultant: Nigel Salazar MD Benzodiazepines Comments Normal [facility] Comment on above: Result Comment: See LDT Notes Performed By: #### 3 9343, 59575, 02912, 05473, 77299, 30762, 72540, 29301 #### [facility] [place] [address] Technical Sales Consultant: Nigel Salazar MD Hydroxyethylflurazepam Negative Normal <50 [facility] Comment on above: Performed By: #### 3 9343, 86022, 62897, 19872, 40264, 90149, 30330, 95998 #### [facility] [place] [address] Technical Sales Consultant: Nigel Salazar MD Lorazepam Negative Normal <50 [facility] Comment on above: Performed By: #### 3 9343, 59837, 24356, 31142, 89518, 06028, 32558, 67627 #### [facility] [place] [address] Technical Sales Consultant: Nigel Salazar MD Nordiazepam Negative Normal <50 [facility] Comment on above: Performed By: #### 3 9343, 21463, 18481, 01556, 21257, 76939, 40452, 67697 #### [facility] [place] [address] Technical Sales Consultant: Nigel Salazar MD Oxazepam Negative Normal <50 [facility] Comment on above: Performed By: #### 3 9343, 96097, 31473, 75496, 36935, 03106, 79076, 71605 #### [facility] [place] [address] Technical Sales Consultant: Nigel Salazar MD Temazepam Negative Normal <50 [facility] Comment on above: Performed By: #### 3 9343, 33800, 12229, 47186, 98677, 95462, 42303, 26755 #### [facility] [place] [address] Technical Sales Consultant: Nigel Salazar MD DRUG MONITOR, COCAINE METAB, W/CONF, URINEon 04-23-2024 Cocaine Metabolite Negative Normal <150 [facility] Comment on above: Performed By: #### 3 9343, 05173, 54398, 43437, 10131, 18799, 42758, 64384 #### [facility] [place] [address] Technical Sales Consultant: Nigel Salazar MD DRUG MONITOR, FENTANYL, QN, URINEon 04-23-2024 Fentanyl Negative Normal <0.5 [facility] Comment on above: Performed By: #### 3 9343, 70433, 36145, 36546, 31183, 93431, 40000, 57532 #### [facility] [place] [address] Technical Sales Consultant: Nigel Salazar MD Fentanyl Comments Normal [facility] Comment on above: Result Comment: See LDT Notes Performed By: #### 3 9343, 60295, 03537, 24126, 88653, 59085, 05800, 12862 #### [facility] [place] [address] Technical Sales Consultant: Nigel Salazar MD Norfentanyl Negative Normal <0.5 [facility] Comment on above: Performed By: #### 3 9343, 18919, 01475, 84960, 08533, 91511, 71140, 36887 #### [facility] [place] [address] Technical Sales Consultant: Nigel Salazar MD DRUG MONITOR, HEROIN METAB, QN, URINEon 04-23-2024 6 Acetylmorphine Negative Normal <10 [facility] Comment on above: Performed By: #### 3 9343, 48921, 92038, 09848, 37635, 55241, 20660, 88366 #### [facility] [place] [address] Technical Sales Consultant: Nigel Salazar MD Heroin Metab Comments Normal [facility] Comment on above: Result Comment: See LDT Notes Performed By: #### 3 9343, 35851, 86089, 23830, 93620, 55850, 54476, 36724 #### [facility] [place] [address] Technical Sales Consultant: Nigel Salazar MD DRUG MONITOR, MARIJUANA META B, W/CONF, URINEon 04-23-2024 Marijuana Metabolite Negative Normal <20 [facility] Comment on above: Performed By: #### 3 9343, 46896, 53570, 26424, 44693, 64390, 43566, 56079 #### [facility] of [address] , [address] [place] [address] Technical Sales Consultant: Nigel Salazar MD DRUG MONITOR, METHADONE META B, QN, URINEon 04-23-2024 EDDP Negative Normal <100 [facility] Comment on above: Performed By: #### 3 9343, 46060, 89106, 13423, 33506, 52154, 92802, 85122 #### [facility] of [address], [address] [place] [address] Technical Sales Consultant: Nigel Salazar MD Methadone Negative Normal <100 [facility] Comment on above: Performed By: #### 3 9343, 31764, 84087, 82234, 79823, 01022, 53807, 05935 #### [facility] [place] [address] Technical Sales Consultant: Nigel Salazar MD Methadone Comments Normal [facility] Comment on above: Result Comment: See LDT Notes Performed By: #### 3 9343, 57493, 02951, 74986, 17247, 60777, 84828, 62770 #### [facility] [place] [address] Technical Sales Consultant: Nigel Salazar MD DRUG MONITOR, OPIATES EXPAND ED, QN, URINEon 04-23-2024 Codeine Negative Normal <50 [facility] Comment on above: Performed By: #### 3 9343, 74999, 80559, 81233, 36624, 60585, 70648, 41932 #### [facility] of [address], [address] [place] [address] Technical Sales Consultant: Nigel Salazar MD Hydrocodone Negative Normal <50 [facility] Comment on above: Performed By: #### 3 9343, 04886, 09111, 29087, 91827, 35851, 41665, 58129 #### [facility] [place] [address] [place] , [address] [place] [address] Technical Sales Consultant: Nigel Salazar MD Hydromorphone Negative Normal <50 [facility] Comment on above: Performed By: #### 3 9343, 61910, 50546, 05698, 38448, 93171, 38652, 37812 #### [facility] of [address], [address] [place] [address] Technical Sales Consultant: Nigel Salazar MD Morphine Negative Normal <50 [facility] Comment on above: Performed By: #### 3 9343, 99443, 42538, 99165, 67162, 00617, 66591, 18946 #### [facility] of [address], [address] [place] [address] Technical Sales Consultant: Nigel Salazar MD Norhydrocodone Negative Normal <50 [facility] Comment on above: Performed By: #### 3 9343, 07986, 65116, 43257, 74340, 27394, 09671, 92329 #### [facility] [place] [address] Technical Sales Consultant: Nigel Salazar MD Noroxycodone Negative Normal <50 [facility] Comment on above: Performed By: #### 3 9343, 22564, 87387, 86056, 30519, 52024, 12766, 76616 #### [facility] [place] [address] Technical Sales Consultant: Nigel Salazar MD Opiates Comments Normal [facility] Comment on above: Result Comment: See LDT Notes Performed By: #### 3 9343, 13842, 29628, 63121, 86890, 91056, 45272, 31079 #### [facility] of [address], [address] [place] [address] Technical Sales Consultant: Nigel Salazar MD Oxycodone Negative Normal <50 [facility] Comment on above: Performed By: #### 3 9343, 95238, 89178, 47180, 26597, 68600, 16068, 04516 #### [facility] of [address], [address] [place] [address] Technical Sales Consultant: Nigel Salazar MD Oxycodone Comments Normal [facility] Comment on above: Result Comment: See LDT Notes Performed By: #### 3 9343, 65174, 52941, 63172, 66286, 87652, 69314, 68628 #### [facility] [place] [address] Technical Sales Consultant: Nigel Salazar MD Oxymorphone Negative Normal <50 [facility] Comment on above: Performed By: #### 3 9343, 16602, 51877, 56047, 23903, 99565, 15156, 21578 #### [facility] of [address], [address] [place] [address] Technical Sales Consultant: Nigel Salazar MD DRUG MONITOR, PCP, W/CONF, U RINEon 04-23-2024 Phencyclidine Negative Normal <25 [facility] Comment on above: Performed By: #### 3 9343, 02112, 39011, 16414, 54053, 02940, 71565, 88697 #### [facility] [place] [address] Technical Sales Consultant: Nigel Salazar MD DRUG MONITOR, TRAMADOL, QN, URINEon 04-23-2024 Desmethyltramadol Normal [facility] Comment on above: Performed By: #### 3 9343, 10831, 32359, 79508, 43847, 88949, 21328, 33201 #### [facility] [place] [address] Technical Sales Consultant: Nigel Salazar MD medMATCH Desmethyltram Normal [facility] Comment on above: Performed By: #### 3 9343, 51766, 30921, 91341, 20080, 59930, 07397, 69628 #### [facility] [place] [address] Technical Sales Consultant: Nigel Salazar MD medMATCH Tramadol Normal [facility] Comment on above: Performed By: #### 3 9343, 88517, 47065, 81356, 99271, 96187, 34495, 79842 #### [facility] [place] [address] Technical Sales Consultant: Nigel Salazar MD Tramadol Normal [facility] Comment on above: Performed By: #### 3 9343, 89608, 81567, 09821, 11880, 17057, 45292, 69949 #### [facility] of [address], [address] [place] [address] Technical Sales Consultant: Nigel Salazar MD Tramadol Comments Normal [facility] Comment on above: Performed By: #### 3 9343, 86974, 29472, 05199, 98432, 42446, 02527, 22977 #### [facility] [place] [address] Technical Sales Consultant: Nigel Salazar MD DRUG MONITOR, ZOLPIDEM, QN, URINEon 04-23-2024 Zolpidem Negative Normal <5 [facility] Comment on above: Performed By: #### 3 9343, 84546, 28460, 88319, 70067, 49727, 29264, 79718 #### [facility] [place] [address] Technical Sales Consultant: Nigel Salazar MD Zolpidem Comments Normal [facility] Comment on above: Result Comment: See LDT Notes Performed By: #### 3 9343, 83888, 24233, 21331, 39198, 67556, 88644, 51074 #### [facility] [place] [address] Technical Sales Consultant: Nigel Salazar MD Zolpidem Metabolite Negative Normal <5 [facility] Comment on above: Performed By: #### 3 9343, 52511, 35567, 21095, 82080, 19117, 20216, 76499 #### [facility] [place] [address] Technical Sales Consultant: Nigel Salazar MD DRUG MONITOR,AMPHETAMINE, W/ CONF, URINEon 04-23-2024 Amphetamines Negative Normal <500 [facility] Comment on above: Performed By: #### 3 9343, 81726, 49364, 22788, 96683, 33749, 57739, 34510 #### [facility] of [address], [address] [place] [address] Technical Sales Consultant: Nigel Salazar MD DRUG MONITOR,BARBITURATE, W/ CONF, URINEon 04-23-2024 Barbiturates Negative Normal <300 [facility] Comment on above: Performed By: #### 3 9343, 41734, 59685, 49526, 18245, 03306, 57875, 48467 #### [facility] of [address], [address] [place] [address] Technical Sales Consultant: Nigel Salazar MD DRUG MONITORING TEMPLATEon 0 04-23-2024 Notes and Comments Normal [facility] Comment on above: Result Comment: This drug testing is for medical treatment only. Analysis was performed as non-forensic testing and these results should be used only by healthcare providers to render diagnosis or treatment, or to monitor progress of medical conditions. LDT Notes: Confirmation tests were developed and their analytical performance characteristics have been determined by [employer] (formerly [employer]). It has not been cleared or approved by the FDA. This assay has been validated pursuant to the CLIA regulations and is used for clinical purposes. Healthcare Providers needing Interpretation assistance, please contact us at [phone] ( ) M-F, 8am to 10pm EST Performed By: #### 3 9343, 59721, 88079, 00517, 53145, 41562, 90468, 55021 #### [facility] [address], [address] [place] [address] Technical Sales Consultant: Nigel Salazar MD SPECIMEN VALIDITY TEST PANEL on 04-23-2024 Creatinine [Mass/Vol] 197.1 mg/dL Normal > or = 20.0 [facility] Comment on above: Performed By: #### 3 9343, 38524, 83286, 14927, 00333, 84518, 07537, 42660 #### [facility] [address], [address] [place] [address] Technical Sales Consultant: Nigel Salazar MD Oxidant Negative Normal <200 [facility] Comment on above: Performed By: #### 3 9343, 12738, 47547, 56229, 66942, 42041, 07581, 87698 #### [facility] [address], [address] [place] [address] Technical Sales Consultant: Nigel Salazar MD pH (Bld) 6.9 [pH] Normal 4.5-9.0 [facility] Comment on above: Performed By: #### 3 9343, 03961, 49475, 18107, 07296, 23559, 43951, 94510 #### [facility] [address], [address] [place] [address] Technical Sales Consultant: Nigel Salazar MD OP NOTEon 02-23-2024 OP NOTE ATTENDING PHYSICIAN ANUP KING MD PRIMARY CARE PHYSICIAN MALKA BERNAL CNP ADMITTING PHYSICIAN ANUP KING MD PREOPERATIVE DIAGNOSES 1. Left wrist mass. 2. Left wrist ganglion cyst. POSTOPERATIVE DIAGNOSES 1. Left wrist mass. 2. Left wrist ganglion cyst. PROCEDURE Excision mass left wrist. ESTIMATED BLOOD LOSS 1 cc. SPECIMENS Mass. COMPLICATIONS None. HISTORY Terri is a 48-year-old patient with significant history of left wrist mass. PROCEDURE IN DETAIL The patient was met in the preoperative holding area, where the left wrist mass was identified, and marked by myself. Patient was taken to the operative suite, and given peripheral sedation, and preoperative Kefzol. The patient's left upper extremity was placed in proximal tourniquet. Patient's left upper extremity was sterilely prepped using ChloraPrep solution. After sterilization left upper extremity, we did our final time-out to confirm that the left wrist was in fact the appropriate site that had been marked by myself. We then went ahead and proceeded forward with elevation of the left arm tourniquet. Incision was made. At this time, we carefully identified the radial artery that had been deformed by the volar ganglion cyst. After the cyst was identified, the radial artery was identified. The cyst was excised in its entirety. After the mass was excised, the volar joint capsule of the radioscaphoid joint was closed using a 2-0 Vicryl suture. We then let the tourniquet down. Bleeders were coagulated. Wound was closed with 4- 0 black nylon suture. Patient placed in a sterile dressing, cock-up wrist splint brace, and taken to PACU without intraoperative complication. D 02/23/2024 09:05 [id number] /[id number] T 02/23/2024 09:56 MCB/MODL AUTHENTICATED BY ANUP KING, ON 02/23/2024 18:14:15 Normal [facility] TISSUE EXAMon 02-23-2024 TISSUE EXAM Surgical Pathology Report Case: [id number] Authorizing Provider: Anup King MD Collected: 02/23/2024 08:44 AM Ordering Location: [facility] Periop Received: 02/23/2024 09:21 AM Pathologist: Mike Saxena IV, MD Specimen: Ganglion, Please Specify, Wrist, Left A. Left Wrist, excision: Ganglion cyst. Ganglion cyst of wrist, left [M67.432] A. Received fresh, designated Wrist, Left tissue, is 1 uor-aoslx-mivo fragment(s) of tissue measuring 1.5 x 1.2 x 0.5 cm. Totally submitted in 1 cassette(s). LM Gross examination performed at: [facility] - [address] [place] [address] Microscopic examination is performed. Normal [facility] Comment on above: Performed By: #### 4 7015 #### [place] [address] Nik Mcallister M.D. [id number] Upper Ext Joint Only(Routine )on 01-20-2024 Upper Ext Joint Only(Routine) [facility] Imaging Services [address] [place] [address] Upper Ext Joint Only(Routine) MR#: [id number] Acct: [id number] Name: MARGATERRI M Rep #: [id number] : 1975 F 48 From: David Myers MD PCP: TAMI Manley Status: REG CLI Study: Upper Ext Joint Only(Routine) Date of Exam: 03/21/23 Exam# [id number] Ordering Dr: KAREN ARMENTA [id number] STUDY: MRI LEFT WRIST WITHOUT CONTRAST REASON FOR EXAM: Female, 48 years old. GANGLION CYST LT WRIST, PAIN X FEW MONTHS TECHNIQUE: Standardized fat and water weighted pulse sequences were obtained in all 3 orthogonal planes. COMPARISON: None. FINDINGS: There is a multiseptated ganglion cyst at the anterior margin of the radiocarpal joint, overall measuring 1.3 cm AP, 2.3 cm transverse, and 2.3 cm craniocaudad. Normal visualized distal radius and ulna. Normal distal radioulnar articulation (DRUJ). Normal triangular fibrocartilaginous complex (TFCC). Normal carpal bones. Normal radiocarpal, intercarpal and midcarpal articulations. Normal pisotriquetral articulation. Normal visualized interosseous scapholunate ligament. Normal visualized dorsal (extrinsic) ligaments. Normal visualized volar (extrinsic) ligaments. Normal extensor tendons. Normal flexor tendons. Normal carpal tunnel with a normal median nerve. Normal carpometacarpal articulation of the thumb. Normal second through fifth carpometacarpal articulations. Normal visualized metacarpal bones. MRI/Upper Ext Joint Only(Routine) IMPRESSION: 1.3 x 2.3 x 2.3 cm multiseptated ganglion cyst at the anterior margin of the radiocarpal joint. No acute osseous, ligamentous, or tendinous injury. Electronically Signed: David Myers MD at 13:20 EST , CC: TAMI Bernal; KAREN ARMENTA Bag Machine Adjuster: Signed Normal [facility] XR WRIST LEFT 3+ VIEWS (MELINDA DARTasha)on 12-30-2023 XR WRIST LEFT 3+ VIEWS (STANDARD) EXAMINATION: XR WRIST LEFT 3+ VIEWS (STANDARD) HISTORY: Pain COMPARISON: None. IMPRESSION: FINDINGS/ 1. No acute fracture or dislocation. 2. Normal alignment of the carpus. 3. Subcutaneous soft tissue edema about the wrist. Workstation ID: [id number] Dictated by: JORDYN VASQUEZ on WedDec 31, 2023 10:40:47 AM EDT Transcribed by: JORDYN VASQUEZ on WedDec 31, 2023 10:40:47 AM EDT Finalized by: JORDYN VASQUEZ on WedDec 31, 2023 10:40:47 AM EDT Normal [facility] Comment on above: Order Comment: Injur y/Trauma or Illness?:Illness/Other How long have you had these symptoms (acute/chronic)?:Acute Reason for exam?:left wrist pain and numbness radiating into hand and up arm, hx of ganglion cyst but never painful until this one, just below base of 1st digit History of cancer?:unk Surgeries, chemotherapy, or radiation?:unk Type of Exam?:Initial Additional signs and symptoms?:. POC , URINE - RALSo n 12-21-2023 Beta HCG ( test) Ql (U) Negative Normal Negative [facility] Comment on above: Order Comment: Negat mariela: Dilute urine specimens, as indicated by a low specific gravity (<1.010) may not contain representitive levels of hCG. If is still suspected, a serum test or repeat urine test using a first morning urine specimen should be considered. Performed By: #### 4 8123 #### [facility] [address] [place], [place] [address] Nik Mcallister M.D. [id number] TISSUE EXAMon 12-21-2023 TISSUE EXAM Surgical Pathology Report Case: [id number] Authorizing Provider: Camille Meraz MD Collected: 12/21/2023 11:17 AM Ordering Location: [facility] Surgery Received: 12/21/2023 12:28 PM Center Periop Pathologist: Otis Meng DO Specimen: Colon, Sigmoid Colon A. Colon, Sigmoid, polyp(s), polypectomy: Tubular adenoma. Encounter for screening for malignant neoplasm of colon [Z12.11] A. Received in formalin, designated Colon, Sigmoid Polypectomy, is 1 vargas fragment(s) of tissue measuring 0.3 x 0.2 x 0.2 cm. Totally submitted in 1 cassette(s). Gross examination performed at: [facility] - [address] [place] [address] Microscopic examination is performed. Normal [facility] Comment on above: Performed By: #### 4 7015 #### LAB [address] [place] [address] Nik Mcallister M.D. [id number] Basophil percentageOrdered B y: Riky Harris on 03-17-2023 Basophil percentage 10-25 SEEN /hpf 0-5 [facility] Bilirubin [Mass/Vol] 0.50 mg/dL 0.20-1.00 [facility] Comment on above: For patients on eltr ombopag therapy, use of Dimension [place] TBIL is not recommended. Chloride [Moles/Vol] 102 mmol/L 98-107 [facility] Cholesterol [Mass/Vol] 171 mg/dL <200 [facility] Comment on above: <200 mg/dL Desirable 200-240 mg/dL Borderline >240 mg/dL High Risk Glucose [Mass/Vol] 123 mg/dL 74-106 [facility] Comment on above: Fasting Glucose resu lt from 100 to 125 mg/dL suggests IMPAIRED HOMEOSTASIS per A.D.A. criteria. Potassium [Moles/Vol] 3.8 mmol/L 3.5-5.1 [facility] Protein [Mass/Vol] 7.5 g/dL 6.4-8.2 [facility] Sodium [Moles/Vol] 135 mmol/L 136-145 [facility] Triglyceride [Mass/Vol] 141 mg/dL <199 [facility] Comment on above: The drugs N-Acetylcy steine and Metamizole may falsely depress this assay.Serum Triglycerides Reference Interval Normal <150 mg/dL Borderline high 150 - 199 mg/dL High 200 - 499 mg/dL Very High > or = 500 mg/dL Bilirubin Test strip Ql (U)O rdered By: Riky Harris on 03-17-2023 Bilirubin Ql (U) Negative Negative [facility] Culture, urineOrdered By: Beena Harris on 03-17-2023 Bacteria identified Cx Nom (U) Positive [facility] Culture, urineOrdered By: Beena Harris on 03-17-2023 Bacteria identified Cx Nom (U) Positive [facility] Ketones Test strip Ql (U)Ord ered By: Riky Harris on 03-17-2023 Ketones Ql (U) Negative Negative [facility] Laboratory - Chemistry and C hemistry - challengeOrdered By: Riky Harris on 03-17-2023 ALP [Catalytic activity/Vol] 88 U/L 45-117 [facility] ALT [Catalytic activity/Vol] 115 U/L 13-56 [facility] CO2 [Moles/Vol] 26.0 mmol/L 21.0-32.0 [facility] Globulin (S) [Mass/Vol] 4.1 g/dL 2.2-4.2 [facility] Urea nitrogen/Creatinine [Mass ratio] 17.1 mg/mg 10-20 [facility] Mucus LM Ql (Urine sed)Order ed By: Riky Harris on 03-17-2023 Mucus Ql (Urine sed) 0 SEEN /hpf [facility] Nitrite Test strip Ql (U)Ord ered By: Riky Harris on 03-17-2023 Nitrite Ql (U) Negative Negative [facility] No Panel InformationOrdered By: Riky Harris on 03-17-2023 Estimated GFR (MDRD) Amer 104 mL/min >60 [facility] Comment on above: GFR Calc Estimated GFR (MDRD) Non-Af Amer 86 mL/min >60 [facility] Comment on above: Non- GFR Calc Thyroid Stimulating Hormone (TSH) 2.48 uIU/mL 0.358-3.74 [facility] Vitamin D 25-Hydroxy 32.8 ng/mL [facility] Comment on above: Vitamin D 25(OH) Sta tus Range Deficiency <20 ng/mL (50nmol/L) Insufficiency 20 - 30 ng/mL (50 - 75 nmol/L) Sufficiency 30 - 100 ng/mL (75 - 250 nmol/L) Toxicity >100 ng/mL (>250 nmol/L) Protein Test strip Ql (U)Ord ered By: Riky Harris on 03-17-2023 Protein Ql (U) Negative Negative [facility] Serum or plasma albumin martine urement (mass/volume)Ordered By: Riky Harris on 03-17-2023 Albumin [Mass/Vol] 3.4 g/dL 3.2-5.0 [facility] Serum or plasma albumin/glob ulin mass ratioOrdered By: Riky Harris on 03-17-2023 Albumin/Globulin [Mass ratio] 0.8 {ratio} 0.9-2.4 [facility] Serum or plasma calcium martine urement (mass/volume)Ordered By: Riky Harris on 03-17-2023 Calcium [Mass/Vol] 9.3 mg/dL 8.5-10.1 [facility] Serum or plasma cholesterol in HDL measurement (mass/volume)Ordered By: Riky Harris on 03-17-2023 Cholesterol in HDL [Mass/Vol] 57 mg/dL >40 [facility] Comment on above: The drugs N-Acetylcy steine and Metamizole may falsely depress this assay. Reference Range HDL <40 mg/dL Low HDL Cholesterol HDL >or= 60 mg/dL High HDL Cholesterol Serum or plasma cholesterol in VLDL measurement (mass/volume)Ordered By: Riky Harris on 03-17-2023 Cholesterol in VLDL [Mass/Vol] 28 mg/dL 5-40 [facility] Serum or plasma creatinine m easurement (mass/volume)Ordered By: Riky Harris on 03-17-2023 Creatinine [Mass/Vol] 0.76 mg/dL 0.55-1.02 [facility] Comment on above: The validity of the calculated GFR & GFRAA in patients over 70 years has not been determined. Clinical correlation is essential. Serum or plasma low density lipoprotein (LDL) cholesterol measurement (mass/volume)Ordered By: Riky Harris on 03-17-2023 Cholesterol in LDL [Mass/Vol] 86 mg/dL 0-130 [facility] Serum or plasma urea nitroge n measurement (mass/volume)Ordered By: Riyk Harris on 03-17-2023 Urea nitrogen [Mass/Vol] 13 mg/dL 7-18 [facility] Squamous epithelial cells de tection in urine sediment by light microscopyOrdered By: Riky Harris on 03-17-2023 Epithelial cells.squamous LM Ql (Urine sed) 5-10 SEEN /hpf 5-10 [facility] Thin prep Papanicolaou smear with manual screeningOrdered By: Riky Harris on 03-17-2023 Thin prep Papanicolaou smear with manual screening 111 U/L 15-37 [facility] Thin prep Papanicolaou smear with manual screening 7 5-15 [facility] Urine blood detectionOrdered By: Riky Harris on 03-17-2023 RBC Ql (U) 10 /ul Negative [facility] RBC Ql (U) 0-5 SEEN /hpf 0-5 [facility] Urine clarityOrdered By: Yordy Harris on 03-17-2023 Clarity (U) Sl. Cloudy Clear [facility] Urine color determinationOrd ered By: Riky Harris on 03-17-2023 Color (U) Yellow Yellow [facility] Urine glucose detectionOrder ed By: Riky Harris on 03-17-2023 Glucose Ql (U) Normal mg/dl Normal [facility] Urine leukocyte esterase det ection by dipstickOrdered By: Riky Harris on 03-17-2023 Leukocyte esterase Test strip Ql (U) 500 /ul Negative [facility] Urine pHOrdered By: Jose Harris on 03-17-2023 pH (U) 5.0 [pH] 5.0 - 8.0 [facility] Urine sediment bacteria coun t by microscopy (number/high power field)Ordered By: Riky Harris on 03-17-2023 Bacteria LM.HPF (Urine sed) [#/Area] RARE /hpf None Seen [facility] Urine specific gravity measu rementOrdered By: Riky Harris on 03-17-2023 Specific gravity (U) [Rel density] 1.020 1.002-1.030 [facility] Urobilinogen Auto test strip Ql (U)Ordered By: Riky Harris on 03-17-2023 Urobilinogen Ql (U) Normal mg/dl Normal [facility] Absolute lymphocyte counton 09-10-2021 Lymphocytes Auto (Unsp spec) [#/Vol] 1.73 10*3/uL 0.83-4.51 [facility] Work Phone: Basophil percentageon 2021 Basophils/100 WBC (Bld) 0.4 % 0-1 [facility] Work Phone: Bilirubin [Mass/Vol] 0.20 mg/dL 0.20-1.00 [facility] Work Phone: Comment on above: For patients on eltr ombopag therapy, use of Dimension [place] TBIL is not recommended. Chloride [Moles/Vol] 102 mmol/L 98-107 [facility] Work Phone: Eosinophils/100 WBC (Bld) 2.0 % 0-5 [facility] Work Phone: Glucose [Mass/Vol] 97 mg/dL 74-106 [facility] Work Phone: [phone] Neutrophils (Bld) [#/Vol] 4.5 10*3/uL 2.0-7.7 [facility] Work Phone: [phone] Neutrophils/100 WBC (Bld) 63.5 % 47-70 [facility] Work Phone: [phone] Potassium [Moles/Vol] 3.3 mmol/L 3.5-5.1 [facility] Work Phone: [phone] Protein [Mass/Vol] 7.8 g/dL 6.4-8.2 [facility] Work Phone: Sodium [Moles/Vol] 137 mmol/L 136-145 [facility] Work Phone: [phone] WBC (Bld) [#/Vol] 7.1 10*3/uL 4.4-11.0 [facility] Work Phone: [phone] Blood erythrocytes count (nu mber/volume)on 09-10-2021 RBC (Bld) [#/Vol] 4.20 10*6/uL 4.2-5.4 [facility]: Blood hemoglobin measurement (mass/volume)on 09-10-2021 Hemoglobin (Bld) [Mass/Vol] 12.5 g/dL 12.0-15.0 [facility] Work Phone: Blood lymphocytes/100 leukoc yteson 09-10-2021 Lymphocytes/100 WBC (Bld) 24.4 % 19-41 [facility] Work Phone: Blood monocytes/100 leukocyt eson 09-10-2021 Monocytes/100 WBC (Bld) 9.3 % 0-10 [facility] Work Phone: Blood platelet mean volumeon 09-10-2021 Platelet mean volume (Bld) [Entitic vol] 8.9 fL 6.2-12.0 [facility] Work Phone: Determination of erythrocyte mean corpuscular volume (MCV)on 09-10-2021 MCV (RBC) [Entitic vol] 90.0 fL 81-99 [facility] Work Phone: Direct bilirubinon 2 Bilirubin.direct [Mass/Vol] 0.07 mg/dL 0.00-0.30 [facility] Work Phone: Hematocrit Auto (Bld) [Volum e fraction]on 09-10-2021 Hematocrit (Bld) [Volume fraction] 37.8 % 37-47 [facility] Work Phone: INR in Blood by Coagulation assayon 09-10-2021 INR Coag (Bld) [Relative time] 1.0 {INR} [facility] Work Phone: Laboratory - Chemistry and C hemistry - challengeon 09-10-2021 ALP [Catalytic activity/Vol] 66 U/L 45-117 [facility] Work Phone: ALT [Catalytic activity/Vol] 65 U/L 13-56 [facility] Work Phone: CO2 [Moles/Vol] 29.0 mmol/L 21.0-32.0 [facility] Work Phone: Globulin (S) [Mass/Vol] 4.0 g/dL 2.2-4.2 [facility] Work Phone: Urea nitrogen/Creatinine [Mass ratio] 16.1 mg/mg 10-20 [facility] Work Phone: Laboratory - Coagulationon 0 09-10-2021 aPTT Coag (Bld) [Time] 27.7 s 24.1-36.2 [facility] Work Phone: PT Coag (PPP) [Time] 12.4 s 11.7-14.[address] [facility] Work Phone: Laboratory - Hematology and Cell countson 09-10-2021 Erythrocyte distribution width (RBC) [Entitic vol] 42.9 fL 35.1-43.9 [facility] Work Phone: Erythrocyte distribution width (RBC) [Ratio] 13.1 % 11.6-14.6 [facility] Work Phone: Immature granulocytes/100 WBC (Bld) 0.400 % 0.0-0.9 [facility] Work Phone: Comment on above: IG% - Immature Granu locytes (promyelocytes, myelocytes and metamyelocytes) > 1% indicates that a LEFT SHIFT is Present. MCH (RBC) [Entitic mass] 29.8 pg 27.0-32.0 [facility] Work Phone: Nucleated RBC/100 WBC (Bld) [Ratio] 0 % 0-5 [facility] Work Phone: MCHC Auto (RBC) [Mass/Vol]on 09-10-2021 MCHC (RBC) [Mass/Vol] 33.1 g/dL 32-36 [facility] Work Phone: No Panel Informationon 09-10 Estimated Creatinine Clearance Calc 80.51 ml/min [facility] Work Phone: Estimated GFR (MDRD) Amer 98 mL/min >60 [facility] Work Phone: Comment on above: GFR Calc Estimated GFR (MDRD) Non-Af Amer 81 mL/min >60 [facility] Work Phone: Comment on above: Non- GFR Calc Platelets bldon 09-10-2021 Platelets (Bld) [#/Vol] 328 10*3/uL 150-450 [facility] Work Phone: Serum or plasma albumin martine urement (mass/volume)on 09-10-2021 Albumin [Mass/Vol] 3.8 g/dL 3.2-5.0 [facility] Work Phone: Serum or plasma calcium martine urement (mass/volume)on 09-10-2021 Calcium [Mass/Vol] 9.4 mg/dL 8.5-10.1 [facility] Work Phone: Serum or plasma creatinine m easurement (mass/volume)on 09-10-2021 Creatinine [Mass/Vol] 0.80 mg/dL 0.55-1.02 [facility] Work Phone: Comment on above: The validity of the calculated GFR & GFRAA in patients over 70 years has not been determined. Clinical correlation is essential. Serum or plasma urea nitroge n measurement (mass/volume)on 09-10-2021 Urea nitrogen [Mass/Vol] 13 mg/dL 7-18 [facility] Work Phone: Thin prep Papanicolaou smear with manual screeningon 09-10-2021 Thin prep Papanicolaou smear with manual screening 42 U/L 15-37 [facility] Work Phone: Thin prep Papanicolaou smear with manual screening 6 5-15 [facility] Work Phone: Cervical or vagninal specime n microscopic examination by cytology stain (reported ason 05-27-2021 Cytology report Cyto stain Doc (Cvx/Vag) Comment . [facility] Work Phone: Comment on above: The Pap smear is a s creening test designed to aid in thedetection of premalignant and malignant conditions of theuterine cervix. It is not a diagnostic procedure andshould not be used as the sole means of detecting cervicalcancer. Both false-positive and false-negative reports dooccur. Detection in cervical specim en of any of human papilloma virus (HPV) 16, 18, 31, 33,on 05-27-2021 HPV 16+18+31+33+35+39+45+51+5 2+56+58+59+66+68 DNA Probe+sig amp Ql (Cvx) Negative Negative [facility] Work Phone: Comment on above: This nucleic acid am plification test detects fourteen high-risk HPV types (16,18,31,33,35,39,45,51,52,56,58,59,66,68)without differentiation.Performed at: - [address] [id number] Director: Dayanna Bhat MD, Phone: [phone] at: = - [facility] [address] [id number] Director: Dayanna Bhat MD, Phone: [phone] Laboratory - Cytologyon 05-07 Provider Relations Coordinator Cyto stain Nom (Cvx/Vag) [ID] Comment . [facility] Work Phone: Comment on above: Josefina Daly, Cytote chnologist (ASCP) Laboratory - Miscellaneous t estson 05-27-2021 Service comment (Unsp spec) [Interp] Comment . [facility] Work Phone: Comment on above: This liquid based Th inPrep(R) pap test was screened withthe use of an image guided system. Service comment (Unsp spec) [Interp] . . [facility] Work Phone: No Panel Informationon 05-27 Pathology report final diagnosis Narrative Comment . [facility] Work Phone: Comment on above: NEGATIVE FOR INTRAEP ITHELIAL LESION OR MALIGNANCY. Basic Metabolic Panelon - Calcium mass conc 9.5 mg/dL Normal 8.4-10.2 [facility] Comment on above: Performed By: #### C HEM8, CBCWOD ####Unless otherwise noted, all testing performed by [address] [id number]: [id number] Director: Nik Mcallister M.D. Chloride molar conc 100 mmol/L Normal 98-108 [facility] Comment on above: Performed By: #### C HEM8, CBCWOD ####Unless otherwise noted, all testing performed by [address] [id number]: [id number] Director: Nik Mcallister M.D. CO2 molar conc 30 mmol/L Normal 21-32 [facility] Comment on above: Performed By: #### C HEM8, CBCWOD ####Unless otherwise noted, all testing performed by [address] [id number]: [id number] Director: Nik Mcallister M.D. Creatinine mass conc 0.88 mg/dL Normal 0.40-1.10 [facility] Comment on above: Performed By: #### C HEM8, CBCWOD ####Unless otherwise noted, all testing performed by [address] [phone]: [id number] Director: Nik Mcallister M.D. GFR/1.73 sq M predicted among blacks MDRD vol rate/area (S/P/Bld) mL/min/{1.73_m2} Normal [facility] Comment on above: Result Comment: Afri can [place] GFR Calc Performed By: #### C HEM8, CBCWOD ####Unless otherwise noted, all testing performed by [facility] [address] [id number]: [id number] Director: Nik Mcallister M.D. GFR/1.73 sq M predicted among non-blacks MDRD vol rate/area (S/P/Bld) mL/min/{1.73_m2} Normal [facility] Comment on above: Result Comment: Non- GFR CalceGFR is an estimated Glomerular Filtration Rate based on the valueof the patient's serum creatinine. In outpatients, eGFR should be usedas a helpful tool in screening for CKD. In inpatients or patients withacute renal failure, eGFR represents the GFR at the moment of the drawand should be used with caution. Performed By: #### C HEM8, CBCWOD ####Unless otherwise noted, all testing performed by [address] [id number]: [id number] Director: Nik Mcallister M.D. Glucose mass conc 99 mg/dL Normal 70-99 [facility] Comment on above: Result Comment: This test result might be falsely depressed or falsely elevated onsamples drawn from patients taking Sulfasalazine and Sulfapyridine.Venipuncture should occur prior to taking either of these drugs. Performed By: #### C HEM8, CBCWOD ####Unless otherwise noted, all testing performed by [address] [phone]: [id number] Director: Nik Mcallister M.D. Potassium molar conc 4.1 mmol/L Normal 3.5-5.1 [facility] Comment on above: Performed By: #### C HEMTyron, CBCWOD ####Unless otherwise noted, all testing performed by [address] [phone]: [id number] Director: Nik Esvin, M.D. Sodium molar conc 138 mmol/L Normal 135-145 [facility] Comment on above: Performed By: #### C HEM8, CBCWOD ####Unless otherwise noted, all testing performed by [address] [id number]: [id number] Director: Nik Mcallister M.D. Urea nitrogen mass conc 12 mg/dL Normal 8-25 [facility] Comment on above: Performed By: #### C HEM8, CBCWOD ####Unless otherwise noted, all testing performed by [address] [phone]: [id number] Director: Nik Mcallister M.D. CBC w/o Diffon 12-23-2017 Erythrocyte distribution width Auto Ratio (RBC) 13.8 % Normal 10-14.4 [facility] Comment on above: Performed By: #### C HEM8, CBCWOD ####Unless otherwise noted, all testing performed by [address] [phone]: [id number] Director: Nik Mcallister M.D. Hematocrit Auto Volume Fraction (Bld) 39.0 % Normal 34.4-44.8 [facility] Comment on above: Performed By: #### C HEM8, CBCWOD ####Unless otherwise noted, all testing performed by [address] [phone]: [id number] Director: Nik Mcallister M.D. Hemoglobin mass conc (Bld) 13.2 g/dL Normal 11.6-15.4 [facility] Comment on above: Performed By: #### C HEM8, CBCWOD ####Unless otherwise noted, all testing performed by [address] [id number]: [id number] Director: Nik Mcallister M.D. MCH Auto Entitic mass (RBC) 29.3 pg Normal 27.9-33.9 [facility] Comment on above: Performed By: #### C HEM8, CBCWOD ####Unless otherwise noted, all testing performed by [address] [phone]: [id number] Director: Nik Mcallister M.D. MCHC Auto mass conc (RBC) 33.8 g/dL Normal 33.1-35.1 [facility] Comment on above: Performed By: #### C HEM8, CBCWOD ####Unless otherwise noted, all testing performed by [address] [id number]: [id number] Director: Nik Mcallister M.D. MCV Auto Entitic volume (RBC) 86.6 fL Normal 82.6-98.9 [facility] Comment on above: Performed By: #### C HEM8, CBCWOD ####Unless otherwise noted, all testing performed by [address] [phone]: [id number] Director: Nik Mcallister M.D. Platelet mean volume Auto Entitic volume (Bld) 6.9 fL Low 7.0-10.6 [facility] Comment on above: Performed By: #### C HEM8, CBCWOD ####Unless otherwise noted, all testing performed by [address] [id number]: [id number] Director: Nik Mcallister M.D. Platelets Auto #/vol (Bld) 333 K/mcL Normal 162-402 [facility] Comment on above: Performed By: #### C HEM8, CBCWOD ####Unless otherwise noted, all testing performed by [address] [id number]: [id number] Director: Nik Mcallister M.D. RBC Auto #/vol (Bld) 4.51 M/mcL Normal 3.7-5.0 [facility] Comment on above: Performed By: #### C HEM8, CBCWOD ####Unless otherwise noted, all testing performed by [address] [id number]: [id number] Director: Nik Mcallister M.D. WBC Auto #/vol (Bld) 7.3 K/mcL Normal 3.4-10.6 [facility] Comment on above: Performed By: #### C HEM8, CBCWOD ####Unless otherwise noted, all testing performed by [address] [id number]: [id number] Director: Nik Mcallister M.D. Vital Signs Date Time Vital Sign Value Performing Clinician Facility 12-11-2024 14:46-0400 Body height 167.6 cm Patric Willis PA-C Work Phone: [facility] 12-11-2024 14:46-0400 Body mass index (BMI) [Ratio] 29.05 kg/m2 Patric ORTIZ-C Work Phone: [facility] 12-11-2024 14:46-0400 Body weight 81.65 kg Patric ORTIZ-Vaughn Work Phone: [facility] 12-11-2024 14:46-0400 Diastolic blood pressure 83 mm[Hg] Patric Adina PA-C Work Phone: [facility] 12-11-2024 14:46-0400 Heart rate 72 /min Patricmavis Hameedall PA-C Work Phone: [facility] 12-11-2024 14:46-0400 Systolic blood pressure 131 mm[Hg] Patric Adina PA-C Work Phone: [facility] 09-06-2024 13:16-0400 Body height 167.6 cm Patric Mosby PA-C Work Phone: [facility] 09-06-2024 13:16-0400 Body mass index (BMI) [Ratio] 31.85 kg/m2 Patric Mosby PA-C Work Phone: [facility] 09-06-2024 13:16-0400 Body weight 89.5 kg Patric Adina PA-C Work Phone: [facility] 09-06-2024 13:16-0400 Diastolic blood pressure 76 mm[Hg] Patric Adina PA-C Work Phone: [facility] 09-06-2024 13:16-0400 Heart rate 90 /min Patric Adina PA-C Work Phone: [facility] 09-06-2024 13:16-0400 Systolic blood pressure 112 mm[Hg] Patric Adina PA-C Work Phone: [facility] 04-20-2024 14:31-0500 Body height 167.6 cm Patric Mosby PA-C Work Phone: [facility] 04-20-2024 14:31-0500 Body mass index (BMI) [Ratio] 35.93 kg/m2 Patric Mosby PA-C Work Phone: [facility] 04-20-2024 14:31-0500 Body weight 100.97 kg Patric Mosby PA-C Work Phone: [facility] 04-20-2024 14:31-0500 Diastolic blood pressure 85 mm[Hg] Patric Hameedall PA-C Work Phone: [facility] 04-20-2024 14:31-0500 Heart rate 94 /min Patric Hameedall PA-C Work Phone: [facility] 04-20-2024 14:31-0500 SaO2% (BldA) [Mass fraction] 93 % Patric Hameedall PA-C Work Phone: [facility] 04-20-2024 14:31-0500 Systolic blood pressure 133 mm[Hg] Patric Hameedall PA-C Work Phone: [facility] 12-30-2023 09:02-0400 Body height 165.1 cm Karen Armenta PILE TRIMMER Work Phone: [facility] 12-30-2023 09:02-0400 Body mass index (BMI) [Ratio] 34.28 kg/m2 Karen Armenta PILE TRIMMER Work Phone: [facility] 12-30-2023 09:02-0400 Body weight 93.44 kg Karen Armenta PILE TRIMMER Work Phone: [facility] 11-22-2023 14:55-0400 Body height 167.6 cm Malka Bernal PILE TRIMMER Work Phone: [facility] 11-22-2023 14:55-0400 Body mass index (BMI) [Ratio] 33.25 kg/m2 Malka Shank PILE TRIMMER Work Phone: [facility] 11-22-2023 14:55-0400 Body temperature 98.29 [degF] Malka Shank PILE TRIMMER Work Phone: [facility] 11-22-2023 14:55-0400 Body weight 93.44 kg Malka Shank PILE TRIMMER Work Phone: [facility] 11-22-2023 14:55-0400 Diastolic blood pressure 89 mm[Hg] Malka Shank PILE TRIMMER Work Phone: [facility] 11-22-2023 14:55-0400 Heart rate 90 /min Malka Shank PILE TRIMMER Work Phone: [facility] 11-22-2023 14:55-0400 Respiratory rate 18 /min Malka Shank PILE TRIMMER Work Phone: [facility] 11-22-2023 14:55-0400 SaO2% (BldA) [Mass fraction] 95 % Malka Shank PILE TRIMMER Work Phone: [facility] 11-22-2023 14:55-0400 Systolic blood pressure 132 mm[Hg] Malka Shank PILE TRIMMER Work Phone: [facility] 10-28-2023 14:00-0400 Body height 167.6 cm Sylvia Perea MD Work Phone: [facility] 10-28-2023 14:00-0400 Body mass index (BMI) [Ratio] 33.09 kg/m2 Sylvia Perea MD Work Phone: [facility] 10-28-2023 14:00-0400 Body weight 92.99 kg Sylvia Perea MD Work Phone: [facility] 07-03-2023 18:45-0400 Body temperature 98.6 [degF] [facility] 07-03-2023 18:45-0400 Diastolic blood pressure 79 mm[Hg] [facility] 07-03-2023 18:45-0400 Heart rate 78 /min [facility] 07-03-2023 18:45-0400 Respiratory rate 16 /min [facility] 07-03-2023 18:45-0400 SaO2% (BldA) [Mass fraction] 99 % [facility] 07-03-2023 18:45-0400 Systolic blood pressure 138 mm[Hg] [facility] 07-03-2023 16:59-0400 Body height 167.[address] [facility] 07-03-2023 16:59-0400 Body mass index (BMI) [Ratio] 33.9 kg/m2 [facility] 07-03-2023 16:59-0400 Body weight 95.[address] [facility] 09-10-2021 16:25-0400 Body height 167.[address] [facility] Work Phone: 09-10-2021 16:25-0400 Body mass index (BMI) [Ratio] 31.9 kg/m2 [facility] Work Phone: 09-10-2021 16:25-0400 Body temperature 98.7 [degF] [facility] Work Phone: 09-10-2021 16:25-0400 Body weight 89.[address] [facility] Work Phone: 09-10-2021 16:25-0400 Diastolic blood pressure 93 mm[Hg] [facility] Work Phone: 09-10-2021 16:25-0400 Heart rate 87 /min [facility] Work Phone: 09-10-2021 16:25-0400 Respiratory rate 20 /min [facility] Work Phone: 09-10-2021 16:25-0400 SaO2% (BldA) [Mass fraction] 97 % [facility] Work Phone: 09-10-2021 16:25-0400 Systolic blood pressure 135 mm[Hg] [facility] Work Phone: Encounters Encounter Date Encounter Type Care Provider Facility Start: 12-11-2024 End: 12-11-2024 Office outpatient visit 25 minutes Patric Willis PA-C Work Phone: [facility] Comment on above: Controlled type 2 di abetes mellitus with hyperglycemia, without long-term current use of insulin (Multi) (Primary Dx); Primary hypertension; Intractable migraine with aura with status migrainosus; Vitamin D deficiency; Overweight (BMI 25.0-29.9); BRIDGET (generalized anxiety disorder); Depression, major, recurrent, mild; Benign essential tremor Start: 12-11-2024 End: 12-11-2024 ambulatory PATRIC Kaur [facility] Start: 11-27-2024 End: 11-27-2024 ambulatory Patric ORTIZ Work Phone: [facility] Start: 11-27-2024 End: 11-27-2024 Patient encounter procedure Patric ORTIZ [facility] Work Phone: Start: 11-27-2024 End: 11-27-2024 ambulatory Patric ORTIZ Facility:[facility] Start: 09-11-2024 End: 09-11-2024 ambulatory Patric ORTIZ Work Phone: [facility] Start: 09-11-2024 End: 09-11-2024 Patient encounter procedure Patric ORTIZ -[facility] Work Phone: Start: 09-11-2024 End: 09-11-2024 ambulatory Patric ORTIZ Facility:[facility] Start: 09-06-2024 End: 09-06-2024 Office outpatient visit 25 minutes Patric Willis PA-C Work Phone: [facility] Comment on above: Controlled type 2 di abetes mellitus with hyperglycemia, without long-term current use of insulin; Benign essential tremor; Depression, major, recurrent, mild; BRIDGET (generalized anxiety disorder); Intractable migraine with aura with status migrainosus; Primary hypertension; Class 1 obesity due to excess calories with serious comorbidity and body mass index (BMI) of 31.0 to 31.9 in adult Start: 09-06-2024 End: 09-06-2024 ambulatory [facility] Start: 09-05-2024 Non-patient / Non-visit Dr. Addie devi MD -[facility] Work Phone: Start: 06-20-2024 End: 06-20-2024 ambulatory Malka Bernal [employer] REPAIRER OPERATOR-C Work Phone: [facility] Work Phone: Start: 06-20-2024 End: 06-20-2024 Patient encounter procedure Patric ORTIZ [facility] Work Phone: Start: 06-20-2024 End: 06-20-2024 ambulatory Patric ORTIZ Facility:[facility] Start: 04-28-2024 End: 04-28-2024 Patient encounter procedure Patric [facility] Work Phone: Start: 04-28-2024 End: 04-28-2024 ambulatory MALKA BERNAL [facility] Start: 04-20-2024 End: 04-20-2024 ambulatory PATRIC Kaur [facility] Start: 04-20-2024 End: 04-20-2024 Office outpatient new 45 minutes Patric Willis PA-C Work Phone: [facility] Comment on above: Encounter to [facility] with new doctor (Primary Dx); Encounter for screening mammogram for breast cancer; Primary hypertension; Glucose intolerance (impaired glucose tolerance); Vitamin D deficiency; History of iron deficiency; Medication management; Dyspepsia; Degeneration of intervertebral disc of lumbar region with discogenic back pain and lower extremity pain; Depression, major, recurrent, mild (CMS-HCC); BRIDGET (generalized anxiety disorder); Mild intermittent asthma without complication (HHS-HCC); Benign essential tremor; Class 2 severe obesity due to excess calories with serious comorbidity and body mass index (BMI) of 35.0 to 35.9 in adult; Encounter for dietary counseling and surveillance Start: 2024 End: 2024 Postop follow up visit related to original px Anup King MD Work Phone: [facility] Comment on above: S/P excision of gang lion cyst (Primary Dx) Start: 2024 End: 2024 ambulatory ANUP KING [facility] Start: 03-11-2024 End: 03-14-2024 Refill Malka Bernal CNP Work Phone: [facility] Comment on above: Primary hypertension (Primary Dx); Anxiety and depression Start: 03-09-2024 End: 03-09-2024 ambulatory MALKA BERNAL [facility] Start: 03-09-2024 End: 03-09-2024 Postop follow up visit related to original px Karen Armenta PILE TRIMMER Work Phone: [facility] Comment on above: S/P excision of gang lion cyst (Primary Dx) Start: 02-23-2024 End: 02-23-2024 ambulatory [facility] Start: 02-04-2024 End: 02-04-2024 Admission to same day surgery center Anup King MD Work Phone: [facility] Comment on above: Ganglion cyst of [address], left (Primary Dx) Start: 01-27-2024 End: 01-27-2024 Phys/qhp telephone evaluation 21-30 min Karen Armenta PILE TRIMMER Work Phone: [facility] Comment on above: Ganglion cyst of [address], left (Primary Dx) Start: 01-27-2024 End: 01-27-2024 ambulatory MALKA AZUL BERNAL [facility] Start: 01-26-2024 End: 01-26-2024 ambulatory MALKA BERNAL [facility] Start: 01-26-2024 ambulatory MALKA AZUL [facility] Start: 01-20-2024 End: 01-20-2024 ambulatory Malka Bernal Facility:[facility] Start: 12-30-2023 End: 12-30-2023 Office outpatient new 30 minutes Malka Bernal PILE TRIMMER Work Phone: [facility] Comment on above: Ganglion cyst of [address], left Start: 12-30-2023 End: 01-03-2024 ambulatory KAREN ARMENTA [facility] Start: 12-21-2023 End: 12-21-2023 ambulatory [facility] Start: 12-13-2023 End: 12-13-2023 ambulatory MALKA LIANG SHANK [facility] Start: 12-09-2023 ambulatory MALKA AZUL SHANK [facility] Start: 12-02-2023 End: 12-02-2023 ambulatory MALKA BERNAL [facility] Start: 11-22-2023 End: 11-22-2023 Office outpatient new 60 minutes Malka Bernal [employer] Work Phone: [facility] Comment on above: Encounter to [facility] (Primary Dx); Impaired fasting glucose; Primary hypertension; Mild intermittent asthma without complication; Anxiety and depression; Other migraine without status migrainosus, not intractable; Degeneration of intervertebral disc of lumbar region; Neuropathy of right sciatic nerve; Tremor of both hands; Urinary incontinence, unspecified type; Encounter for screening for malignant neoplasm of colon Start: 11-22-2023 End: 11-22-2023 ambulatory MALKA BERNAL [facility] Start: 10-28-2023 End: 10-28-2023 Office outpatient new 45 minutes Sylvia Perea MD Work Phone: [facility] Comment on above: DDD (degenerative di sc disease), lumbar (Primary Dx); Chronic bilateral low back pain with right-sided sciatica Start: 10-28-2023 End: 11-01-2023 ambulatory SYLVIA PEREA [facility] Start: 10-20-2023 End: 10-20-2023 Transcribe Orders Sylvia Perea MD Work Phone: [facility] Comment on above: DDD (degenerative di sc disease), lumbar (Primary Dx) Start: 07-03-2023 End: 07-03-2023 Emergency department patient visit [facility] Work Phone: Start: 06-17-2023 End: 06-17-2023 ambulatory [facility] Work Phone: Start: 06-17-2023 End: 06-17-2023 Patient encounter procedure [facility] Work Phone: Start: 06-14-2023 End: 06-14-2023 ambulatory [facility] Work Phone: Start: 06-14-2023 End: 06-14-2023 Patient encounter procedure [facility] Work Phone: Start: 03-17-2023 End: 03-17-2023 ambulatory [facility] Work Phone: Start: 03-17-2023 End: 03-17-2023 Patient encounter procedure [facility] Start: 03-15-2023 End: 03-15-2023 ambulatory [facility] Work Phone: Start: 03-15-2023 End: 03-15-2023 Patient encounter procedure [facility], [place] Work Phone: Start: 06-12-2022 End: 06-12-2022 ambulatory [facility] Work Phone: Start: 06-12-2022 End: 06-12-2022 Patient encounter procedure [facility] Start: 09-10-2021 End: 09-10-2021 Emergency department patient visit [facility] Start: 06-09-2021 End: 06-09-2021 Patient encounter procedure [facility] Ultrasound Start: 06-05-2021 End: 06-05-2021 Patient encounter procedure [facility] Start: 05-27-2021 End: 05-27-2021 Patient encounter procedure [facility], Specimen Start: 12-30-2017 End: 12-30-2017 Patient encounter Arpit Stafford Facility:[facility] Start: 12-23-2017 Patient encounter Arpit Stafford Faci lity:[facility] Start: 11-22-2017 End: 11-22-2017 Office outpatient visit 10 minutes Arpit Stafford Work Phone: [facility] [place] Comment on above: Carpal tunnel syndro me of left wrist (Primary Dx) Procedures Date Procedure Procedure Detail Performing Clinician Start: 06-20-2024 Screening mammography B maria r Bernal [employer] REPAIRER OPERATOR-C Work Phone: Start: 05-12-2024 Lipid 1996 panel - S shahid or Plasma Patric Willis PA-C Work Phone: Start: 12-21-2023 Colonoscopy Karen dahl PI[employer]MER Work Phone: Start: 07-03-2023 X-ray of lumbar spin e, two or three views Start: 06-17-2023 End: 06-17-2023 Mammography Start: 06-17-2023 Ultrasonography of breast Start: 06-14-2023 Screening mammography Start: 03-17-2023 Bacteria identified in Urine by Culture Start: 03-17-2023 Urine culture Start: 03-15-2023 Plain x-ray of elbow Start: 06-12-2022 End: 06-12-2022 Screening mammography Start: 09-10-2021 Computed tomography of abdomen and pelvis with contrast Start: 06-09-2021 Mammography Start: 06-09-2021 Ultrasonography of breast Start: 06-05-2021 Screening mammography Start: 05-27-2021 Microscopic observat ion [Identifier] in Cervix by Cyto stain Sylvia Perea MD Work Phone: Measurement of occul t blood in stool specimen using immunoassay Plan of Treatment Date Care Activity Detail Author Start: 12-20-2033 Screening for malign ant neoplasm of colon [facility] Start: 12-19-2031 Tetanus vaccination Tetanus: Every 1 0yrs [facility] Start: 12-20-2028 Screening for malign ant neoplasm of colon [facility] Start: 05-27-2026 Screening for malign ant neoplasm of cervix [facility] Start: 06-11-2025 End: 06-11-2025 Patient encounter procedure 06/11/2025 2:40 PM EDT Office Visit [facility] [address] [place] [phone] Patric Willis PA-C [address] [place] [address] [facility] Start: 06-11-2025 End: 12-11-2025 25-hydroxyvitamin D3 [Mass/volume] in Serum or Plasma Vitamin D 25-Hydroxy,Total (for eval of Vitamin D levels) Lab Routine Primary hypertension Controlled type 2 diabetes mellitus with hyperglycemia, without long-term current use of insulin (Multi) Vitamin D deficiency Expected: 06/11/2025 (Approximate), Expires: 12/11/2025 [facility] Work Phone: Comment on above: Expected: 06/11/2025 (Approximate), Expires: 12/11/2025 Start: 06-11-2025 End: 12-11-2025 CBC W Auto Differential panel - Blood CBC and Auto Differential Lab Routine Primary hypertension Controlled type 2 diabetes mellitus with hyperglycemia, without long-term current use of insulin (Multi) Expected: 06/11/2025 (Approximate), Expires: 12/11/2025 [facility] Work Phone: Comment on above: Expected: 06/11/2025 (Approximate), Expires: 12/11/2025 Start: 06-11-2025 End: 12-11-2025 Comprehensive metabolic 2000 panel - Serum or Plasma Comprehensive Metabolic Panel Lab Routine Primary hypertension Controlled type 2 diabetes mellitus with hyperglycemia, without long-term current use of insulin (Multi) Expected: 06/11/2025 (Approximate), Expires: 12/11/2025 [facility] Work Phone: Comment on above: Expected: 06/11/2025 (Approximate), Expires: 12/11/2025 Start: 06-11-2025 End: 12-11-2025 Hemoglobin A1c/Hemoglobin.total in Blood Hemoglobin A1C Lab Routine Primary hypertension Controlled type 2 diabetes mellitus with hyperglycemia, without long-term current use of insulin (Multi) Expected: 06/11/2025 (Approximate), Expires: 12/11/2025 [facility] Work Phone: Comment on above: Expected: 06/11/2025 (Approximate), Expires: 12/11/2025 Start: 06-11-2025 End: 12-11-2025 Lipid 1996 panel - Serum or Plasma Lipid Panel Lab Routine Primary hypertension Controlled type 2 diabetes mellitus with hyperglycemia, without long-term current use of insulin (Multi) Expected: 06/11/2025 (Approximate), Expires: 12/11/2025 [facility] Work Phone: Comment on above: Expected: 06/11/2025 (Approximate), Expires: 12/11/2025 Start: 06-11-2025 End: 12-11-2025 Magnesium [Mass/volume] in Serum or Plasma Magnesium Lab Routine Primary hypertension Controlled type 2 diabetes mellitus with hyperglycemia, without long-term current use of insulin (Multi) Expected: 06/11/2025 (Approximate), Expires: 12/11/2025 [facility] Work Phone: Comment on above: Expected: 06/11/2025 (Approximate), Expires: 12/11/2025 Start: 06-11-2025 End: 12-11-2025 Microalbumin/Creatinine [Mass Ratio] in Urine Albumin-Creatinine Ratio, Urine Random Lab Routine Primary hypertension Controlled type 2 diabetes mellitus with hyperglycemia, without long-term current use of insulin (Multi) Expected: 06/11/2025 (Approximate), Expires: 12/11/2025 [facility] Service Area Work Phone: Comment on above: Expected: 06/11/2025 (Approximate), Expires: 12/11/2025 Start: 06-11-2025 End: 12-11-2025 Thyrotropin [Units/volume] in Serum or Plasma Thyroid Stimulating Hormone Lab Routine Primary hypertension Controlled type 2 diabetes mellitus with hyperglycemia, without long-term current use of insulin (Multi) Expected: 06/11/2025 (Approximate), Expires: 12/11/2025 [facility] Work Phone: Comment on above: Expected: 06/11/2025 (Approximate), Expires: 12/11/2025 Start: 06-11-2025 End: 12-11-2025 Thyroxine (T4) free [Mass/volume] in Serum or Plasma Thyroxine, Free Lab Routine Primary hypertension Controlled type 2 diabetes mellitus with hyperglycemia, without long-term current use of insulin (Multi) Expected: 06/11/2025 (Approximate), Expires: 12/11/2025 [facility] Work Phone: Comment on above: Expected: 06/11/2025 (Approximate), Expires: 12/11/2025 Start: 05-12-2025 Lipid panel Lipid Panel [facility] Start: 11-21-2024 Depression screening using PHQ-9 (Patient Health Questionnaire 9) score Depression Screening/Follow-Up (PHQ-2/9) [facility] Start: 11-06-2024 COVID-19 Vaccine ( season) COVID-19 Vaccine ( season) [facility] Start: 11-06-2024 Influenza vaccination Influenza Vacc ine (#1) [facility] Start: 10-05-2024 End: 10-05-2024 Patient encounter procedure 10/05/2024 9:20 AM EDT Office Visit [facility] [address] [place] [phone] Patric Willis, PA-C [address] [facility] [place] [address] [facility] Start: 08-12-2024 Hemoglobin A1c measurement Diabetes: Hemoglobin A1C [facility] Start: 07-20-2024 End: 07-20-2024 Patient encounter procedure 07/20/2024 1:00 PM EDT Office Visit [facility] [address] [place] [phone] Patric Willis, PA-C [address] [place] [address] [facility] Start: 06-16-2024 Screening for malign ant neoplasm of breast Mammogram [facility] Start: 05-27-2024 Screening for malign ant neoplasm of cervix Pap Smear [facility] Start: 05-09-2024 End: 05-09-2024 Patient encounter procedure 05/09/2024 2:00 PM EST Office Visit [facility] [address] [place] [phone] Malka Bernal CNP [address] [facility] [address] [place] [address] [facility] Start: 04-20-2024 End: 04-20-2025 25-hydroxyvitamin D3 [Mass/volume] in Serum or Plasma Vitamin D 25-Hydroxy,Total (for eval of Vitamin D levels) Lab Routine Primary hypertension Glucose intolerance (impaired glucose tolerance) Vitamin D deficiency Expected: 04/20/2024 (Approximate), Expires: 04/20/2025 [facility] Work Phone: Comment on above: Expected: 04/20/2024 (Approximate), Expires: 04/20/2025 Start: 04-20-2024 End: 04-20-2025 CBC W Auto Differential panel - Blood CBC and Auto Differential Lab Routine Primary hypertension Glucose intolerance (impaired glucose tolerance) Expected: 04/20/2024 (Approximate), Expires: 04/20/2025 [facility] Work Phone: Comment on above: Expected: 04/20/2024 (Approximate), Expires: 04/20/2025 Start: 04-20-2024 End: 04-20-2025 Cobalamin (Vitamin B12) [Mass/volume] in Serum or Plasma Vitamin B12 Lab Routine Primary hypertension Glucose intolerance (impaired glucose tolerance) Expected: 04/20/2024 (Approximate), Expires: 04/20/2025 [facility] Work Phone: Comment on above: Expected: 04/20/2024 (Approximate), Expires: 04/20/2025 Start: 04-20-2024 End: 04-20-2025 Comprehensive metabolic 2000 panel - Serum or Plasma Comprehensive Metabolic Panel Lab Routine Primary hypertension Glucose intolerance (impaired glucose tolerance) Expected: 04/20/2024 (Approximate), Expires: 04/20/2025 [facility] Work Phone: Comment on above: Expected: 04/20/2024 (Approximate), Expires: 04/20/2025 Start: 04-20-2024 End: 06-18-2025 DBT Breast - bilateral BI mammo bilateral screening tomosynthesis Imaging Routine Encounter for screening mammogram for breast cancer Expected: 04/20/2024, Expires: 06/18/2025 [facility] Service Area Work Phone: Comment on above: Expected: 04/20/2024 , Expires: 06/18/2025 Start: 04-20-2024 End: 04-20-2025 Ferritin [Mass/volume] in Serum or Plasma Ferritin Lab Routine Primary hypertension Glucose intolerance (impaired glucose tolerance) History of iron deficiency Expected: 04/20/2024 (Approximate), Expires: 04/20/2025 [facility] Work Phone: Comment on above: Expected: 04/20/2024 (Approximate), Expires: 04/20/2025 Start: 04-20-2024 End: 04-20-2025 Hemoglobin A1c/Hemoglobin.total in Blood Hemoglobin A1C Lab Routine Primary hypertension Glucose intolerance (impaired glucose tolerance) Expected: 04/20/2024 (Approximate), Expires: 04/20/2025 [facility] Work Phone: Comment on above: Expected: 04/20/2024 (Approximate), Expires: 04/20/2025 Start: 04-20-2024 End: 04-20-2025 Iron and Iron binding capacity panel - Serum or Plasma Iron and TIBC Lab Routine Primary hypertension Glucose intolerance (impaired glucose tolerance) History of iron deficiency Expected: 04/20/2024 (Approximate), Expires: 04/20/2025 [facility] Work Phone: Comment on above: Expected: 04/20/2024 (Approximate), Expires: 04/20/2025 Start: 04-20-2024 End: 04-20-2025 Lipid 1996 panel - Serum or Plasma Lipid Panel Lab Routine Primary hypertension Glucose intolerance (impaired glucose tolerance) Expected: 04/20/2024 (Approximate), Expires: 04/20/2025 [facility] Work Phone: Comment on above: Expected: 04/20/2024 (Approximate), Expires: 04/20/2025 Start: 04-20-2024 End: 04-20-2025 Magnesium [Mass/volume] in Serum or Plasma Magnesium Lab Routine Primary hypertension Glucose intolerance (impaired glucose tolerance) Expected: 04/20/2024 (Approximate), Expires: 04/20/2025 [facility] Work Phone: Comment on above: Expected: 04/20/2024 (Approximate), Expires: 04/20/2025 Start: 04-20-2024 End: 04-20-2025 Thyrotropin [Units/volume] in Serum or Plasma Thyroid Stimulating Hormone Lab Routine Primary hypertension Glucose intolerance (impaired glucose tolerance) Expected: 04/20/2024 (Approximate), Expires: 04/20/2025 [facility] Work Phone: Comment on above: Expected: 04/20/2024 (Approximate), Expires: 04/20/2025 Start: 04-20-2024 End: 04-20-2025 Thyroxine (T4) free [Mass/volume] in Serum or Plasma Thyroxine, Free Lab Routine Primary hypertension Glucose intolerance (impaired glucose tolerance) Expected: 04/20/2024 (Approximate), Expires: 04/20/2025 [facility] Work Phone: Comment on above: Expected: 04/20/2024 (Approximate), Expires: 04/20/2025 Start: 2024 End: 2024 Follow-up encounter 2024 3:15 PM EST Follow-Up [facility] [address] [place] [address] Anup King MD [address] [place] [phone] [facility] Start: 03-25-2024 History and physical examination, annual for health maintenance Wellness Visit [facility] Start: 03-09-2024 End: 03-09-2024 Follow-up encounter 03/09/2024 1:30 PM EST Follow-Up [facility] [address] [place] [address] Karen Armenta, MATTI [address] [place] [phone] [facility] Start: 02-23-2024 Subsequent hospital visit by physician 02/23/2024 Hospital Encounter [facility] [address] [place] [phone] Anup King MD [address] [place] [phone] [facility] Start: 01-26-2024 End: 01-26-2024 Patient encounter procedure 01/26/2024 3:15 PM EST Office Visit [facility] [address] [phone] Karen Armenta, MATTI [address] [place] [phone] [facility] Start: 11-22-2023 End: 11-22-2023 Patient encounter procedure 11/22/2023 3:00 PM EDT Office Visit [facility] [address] [place] [phone] Malka Bernal, MATTI [address] [facility] [address] [place] [address] [facility] Start: 11-07-2023 COVID-19 Vaccine ( season) COVID-19 Vaccine ( season) [facility] Start: 11-07-2023 COVID-19 Vaccine ( season) COVID-19 Vaccine ( season) [facility] Start: 11-07-2023 COVID-19 Vaccine ( season) COVID-19 Vaccine ( season) [facility] Start: 11-07-2023 Influenza vaccination Influenza Vacc ine (#1) [facility] Start: 07-03-2023 [facility] Start: 06-13-2023 Screening for malign ant neoplasm of breast Mammogram [facility] Start: 2023 Administration of he rpes zoster vaccine Zoster Vaccines (1 of 2) [facility] Start: 2023 Screening for malign ant neoplasm of colon [facility] Start: 2023 Zoster Vaccines (1 of 2) Zoster Vacc reji (1 of 2) [facility] Start: 03-17-2023 Bacteria identified in Urine by Culture [facility] Start: 03-17-2023 History and physical examination, annual for health maintenance Wellness Visit [facility] Start: 11-06-2022 COVID-19 Vaccine ( season) COVID-19 Vaccine ( season) [facility] Start: 09-10-2022 Screening for malign ant neoplasm of colon Fecal occult blood test (FOBT,FIT) [facility] Start: 06-09-2021 Mammography DIAG MAMM W/CAD, UNILAT [facility] Work Phone: Start: 06-09-2021 Ultrasonography of breast [place] [facility] Unilateral [facility] Work Phone: Start: 11-06-2017 Influenza vaccination SEQUENTI AL INFLUENZA VACCINE (#1) [facility] Start: 2013 Screening for malign ant neoplasm of breast Mammogram [facility] Start: 1995 DTaP/Tdap/Td Vaccine s (1 - Tdap) DTaP/Tdap/Td Vaccines (1 - Tdap) [facility] Start: 1994 Screening for malign ant neoplasm of cervix [facility] Start: 1992 Hepatitis B Vaccines (1 of 3 - 19+ 3-dose series) Hepatitis B Vaccines (1 of 3 - 19+ 3-dose series) [facility] Start: 1992 Pneumococcal vaccination Pneum ococcal Vaccine (1 of 2 - PCV) [facility] Start: 1992 Pneumococcal Vaccine : Age 50+ (1 of 2 - PCV) Pneumococcal Vaccine: Age 50+ (1 of 2 - PCV) [facility] Start: 1992 Pneumococcal Vaccine : Ped or At-Risk (1 of 2 - PCV) Pneumococcal Vaccine: Ped or At-Risk (1 of 2 - PCV) [facility] Start: 1991 Hepatitis C screening Hepatitis C Sc reening [facility] Start: 1988 HIV screening HIV Screening [facility] Start: 1985 Depression screening using PHQ-9 (Patient Health Questionnaire 9) score Depression Screening/Follow-Up (PHQ-2/9) [facility] Start: 1983 Glaucoma screening Diabetes: R etinopathy Screening [facility] Start: 1979 Pneumococcal Vaccine : Ped or At-Risk (1 of 2 - PCV) Pneumococcal Vaccine: Ped or At-Risk (1 of 2 - PCV) [facility] Start: 1974 MMR Vaccines (1 of 1 - Standard series) MMR Vaccines (1 of 1 - Standard series) [facility] Start: 1973 HIV screening HIV Screening [facility] Start: 1973 Lipid panel Lipid Panel [facility] Start: 1973 Screening for malign ant neoplasm of cervix PAP SMEAR [facility] Start: 1973 Screening for malign ant neoplasm of colon [facility] Start: 1973 Tetanus vaccination TETANUS EVERY 10 YR [facility] Start: 1973 Urine screening for protein Diabetes: Urine Protein Screening [facility] Start: 1973 Yearly Adult Physical Yearly Adult P hysical [facility] Excision ganglion wr ist dorsal/volar primary GANGLIONECTOMY UPPER EXTREMITY Ganglion cyst of wrist, left [facility] End: 06-29-2024 MR Wrist - left WO contrast MR Wrist Left Without Contrast Imaging Routine Ganglion cyst of wrist, left 1 Occurrences starting 12/30/2023 until 06/29/2024 [facility] Work Phone: Comment on above: 1 Occurrences starti ng 12/30/2023 until 06/29/2024 Opiate/Opioid/Benzo Prescription Compliance Opiate/Opioid/Benzo Prescription Compliance Lab Routine Medication management Ordered: 04/20/2024 [facility] Work Phone: Comment on above: Ordered: 04/20/2024 Patient Education [facility] Work Phone: Patient referral [facility] Work Phone: Payers Date Payer Category Payer Private Health Insurance GENERIC COMMERCIAL [id number] 2023 Self-pay [id number] 2023 Unknown [id number] 2023 Unknown [id number] 2014 Unknown [id number] 1973 Unknown [id number] 2.16840.1.811189.3.579. 2.900 1973 Unknown [id number] 2.16840.1.599611.3.579. 2. 1973 Unknown [id number] 2.16840.1.734240.3.579. 2. 1973 Unknown [id number] 2.16840.1.597073.3.579. 2. 1973 Unknown [id number] 2.16840.1.528916.3.579. 2. 1973 Unknown [id number] 2.16840.1.098638.3.579. 2.90 1973 Unknown [id number] 2.16840.1.277235.3.579. 2. 1973 Unknown [id number] 2.16840.1.566599.3.579. 2. 1973 Unknown [id number] 2.16840.1.425468.3.579. 2.90 1973 Unknown [id number] 2.16.840.1.096460.3.579. 2. 1973 Unknown [id number] 2.16.840.1.486240.3.579. 2.903 1973 Unknown [id number] 2.16.840.1.364406.3.579. 2.903 1973 Unknown [id number] 2.16.840.1.001332.3.579. 2.903 1973 Unknown [id number] 2.16.840.1.084708.3.579. 2.903 1973 Unknown [id number] 2.16.840.1.579302.3.579. 2.903 1973 Unknown [id number] 2.16.840.1.026905.3.579. 2.903 1973 Unknown [id number] 2.16840.1.335241.3.579. 2.1244 1973 Unknown [id number] 2.16840.1.020128.3.579. 2.1244 1973 Unknown [id number] 2.16.840.1.057070.3.579. 2.1244 Unknown [id number] Unknown [id number] 2.16840.1.802020.3.579. 2.462 Unknown [id number] 2.16840.1.268868.3.579. 2.462 Unknown [id number] 2.16840.1.156251.3.579. 2.462 Unknown [id number] 2.16840.1.133630.3.579. 2.462 Unknown [id number] 2.16840.1.784086.3.579. 2.462 Social History Date Type Detail Facility Start: 11-22-2017 End: 04-20-2024 Tobacco smoking status DCIS Never smoker [facility] Start: 1975 Sex Assigned At Not on file [facility] Start: 01-23-2021 End: 07-03-2023 Tobacco smoking status DCIS Unknown if ever smoked [facility] Start: 1975 Sex Assigned At Female [facility] Start: 01-07-2018 End: 04-20-2024 Tobacco use and exposure Smokeless tobacco non-user [facility] Start: 04-16-2021 End: 11-22-2023 Alcoholic beverage intake Current non-drinker of alcohol (finding) [facility] Start: 04-16-2021 End: 12-11-2024 Alcoholic beverage intake [facility] Start: 04-16-2021 End: 12-11-2024 Tobacco use panel [facility] Start: 10-20-2023 Gender identity Identifies as female gender (finding) [facility] Start: 10-20-2023 Sexual orientation Heterosexual (fin ding) [facility] Start: 12-30-2023 End: 12-11-2024 Alcoholic beverage intake Lifetime non-drinker (finding) [facility] Start: 01-30-2022 Adult Depression Screening Assessment 1 [facility] Start: 04-10-2024 End: 04-20-2024 Exposure to SARS-CoV-2 (event) Not sure [facility] Start: 06-27-2024 Sex Female (finding) [facility] NEGATED: Highlighted rowStart: NINF History of tobacco use Passive smoker [facility] Work Phone: Medical Equipment Procedure Code Equipment Code Equipment Origin al Text Equipment Identifier Dates ORIF, ankle 2.7 mm Kreulock FDA Start: 01-28-2021 ORIF, ankle 2.7 mm Kreulock FDA Start: 01-28-2021 ORIF, ankle 2.7 mm Kreulock screw FDA Start: 01-28-2021 ORIF, ankle 3.5 mm Cortical Screw FDA Start: 01-28-2021 ORIF, ankle 3.5 mm Locking Screw FDA Sta rt: 01-28-2021 ORIF, ankle 3.5 mm Locking Screw FDA Sta rt: 01-28-2021 ORIF, ankle Distal Fibula Plate FDA Star t: 01-28-2021 ORIF, ankle 2.7 mm Kreulock FDA Start: 01-28-2021 ORIF, ankle 2.7 mm Kreulock FDA Start: 01-28-2021 ORIF, ankle 2.7 mm Kreulock screw FDA Start: 01-28-2021 ORIF, ankle 3.5 mm Cortical Screw FDA Start: 01-28-2021 ORIF, ankle 3.5 mm Locking Screw FDA Sta rt: 01-28-2021 ORIF, ankle 3.5 mm Locking Screw FDA Sta rt: 01-28-2021 ORIF, ankle Distal Fibula Plate FDA Star t: 01-28-2021 ORIF, ankle 2.7 mm Kreulock FDA Start: 01-28-2021 ORIF, ankle 2.7 mm Kreulock FDA Start: 01-28-2021 ORIF, ankle 2.7 mm Kreulock screw FDA Start: 01-28-2021 ORIF, ankle 3.5 mm Cortical Screw FDA Start: 01-28-2021 ORIF, ankle 3.5 mm Locking Screw FDA Sta rt: 01-28-2021 ORIF, ankle 3.5 mm Locking Screw FDA Sta rt: 01-28-2021 ORIF, ankle Distal Fibula Plate FDA Star t: 01-28-2021 ORIF, ankle 2.7 mm Kreulock FDA Start: 01-28-2021 ORIF, ankle 2.7 mm Kreulock FDA Start: 01-28-2021 ORIF, ankle 2.7 mm Kreulock screw FDA Start: 01-28-2021 ORIF, ankle 3.5 mm Cortical Screw FDA Start: 01-28-2021 ORIF, ankle 3.5 mm Locking Screw FDA Sta rt: 01-28-2021 ORIF, ankle 3.5 mm Locking Screw FDA Sta rt: 01-28-2021 ORIF, ankle Distal Fibula Plate FDA Star t: 01-28-2021 ORIF, ankle 2.7 mm Kreulock FDA Start: 01-28-2021 ORIF, ankle 2.7 mm Kreulock FDA Start: 01-28-2021 ORIF, ankle 2.7 mm Kreulock screw FDA Start: 01-28-2021 ORIF, ankle 3.5 mm Cortical Screw FDA Start: 01-28-2021 ORIF, ankle 3.5 mm Locking Screw FDA Sta rt: 01-28-2021 ORIF, ankle 3.5 mm Locking Screw FDA Sta rt: 01-28-2021 ORIF, ankle Distal Fibula Plate FDA Star t: 01-28-2021 ORIF, ankle 2.7 mm Kreulock FDA Start: 01-28-2021 ORIF, ankle 2.7 mm Kreulock FDA Start: 01-28-2021 ORIF, ankle 2.7 mm Kreulock screw FDA Start: 01-28-2021 ORIF, ankle 3.5 mm Cortical Screw FDA Start: 01-28-2021 ORIF, ankle 3.5 mm Locking Screw FDA Sta rt: 01-28-2021 ORIF, ankle 3.5 mm Locking Screw FDA Sta rt: 01-28-2021 ORIF, ankle Distal Fibula Plate FDA Star t: 01-28-2021 ORIF, ankle 2.7 mm Kreulock FDA Start: 01-28-2021 ORIF, ankle 2.7 mm Kreulock FDA Start: 01-28-2021 ORIF, ankle 2.7 mm Kreulock screw FDA Start: 01-28-2021 ORIF, ankle 3.5 mm Cortical Screw FDA Start: 01-28-2021 ORIF, ankle 3.5 mm Locking Screw FDA Sta rt: 01-28-2021 ORIF, ankle 3.5 mm Locking Screw FDA Sta rt: 01-28-2021 ORIF, ankle Distal Fibula Plate FDA Star t: 01-28-2021 ORIF, ankle 2.7 mm Kreulock FDA Start: 01-28-2021 ORIF, ankle 2.7 mm Kreulock FDA Start: 01-28-2021 ORIF, ankle 2.7 mm Kreulock screw FDA Start: 01-28-2021 ORIF, ankle 3.5 mm Cortical Screw FDA Start: 01-28-2021 ORIF, ankle 3.5 mm Locking Screw FDA Sta rt: 01-28-2021 ORIF, ankle 3.5 mm Locking Screw FDA Sta rt: 01-28-2021 ORIF, ankle Distal Fibula Plate FDA Star t: 01-28-2021 ORIF, ankle 2.7 mm Kreulock FDA Start: 01-28-2021 ORIF, ankle 2.7 mm Kreulock FDA Start: 01-28-2021 ORIF, ankle 2.7 mm Kreulock screw FDA Start: 01-28-2021 ORIF, ankle 3.5 mm Cortical Screw FDA Start: 01-28-2021 ORIF, ankle 3.5 mm Locking Screw FDA Sta rt: 01-28-2021 ORIF, ankle 3.5 mm Locking Screw FDA Sta rt: 01-28-2021 ORIF, ankle Distal Fibula Plate FDA Star t: 01-28-2021 ORIF, ankle 2.7 mm Kreulock FDA Start: 01-28-2021 ORIF, ankle 2.7 mm Kreulock FDA Start: 01-28-2021 ORIF, ankle 2.7 mm Kreulock screw FDA Start: 01-28-2021 ORIF, ankle 3.5 mm Cortical Screw FDA Start: 01-28-2021 ORIF, ankle 3.5 mm Locking Screw FDA Sta rt: 01-28-2021 ORIF, ankle 3.5 mm Locking Screw FDA Sta rt: 01-28-2021 ORIF, ankle Distal Fibula Plate FDA Star t: 01-28-2021 ORIF, ankle 2.7 mm Kreulock FDA Start: 01-28-2021 ORIF, ankle 2.7 mm Kreulock FDA Start: 01-28-2021 ORIF, ankle 2.7 mm Kreulock screw FDA Start: 01-28-2021 ORIF, ankle 3.5 mm Cortical Screw FDA Start: 01-28-2021 ORIF, ankle 3.5 mm Locking Screw FDA Sta rt: 01-28-2021 ORIF, ankle 3.5 mm Locking Screw FDA Sta rt: 01-28-2021 ORIF, ankle Distal Fibula Plate FDA Star t: 01-28-2021 ORIF, ankle 2.7 mm Kreulock FDA Start: 01-28-2021 ORIF, ankle 2.7 mm Kreulock FDA Start: 01-28-2021 ORIF, ankle 2.7 mm Kreulock screw FDA Start: 01-28-2021 ORIF, ankle 3.5 mm Cortical Screw FDA Start: 01-28-2021 ORIF, ankle 3.5 mm Locking Screw FDA Sta rt: 01-28-2021 ORIF, ankle 3.5 mm Locking Screw FDA Sta rt: 01-28-2021 ORIF, ankle Distal Fibula Plate FDA Star t: 01-28-2021 ORIF, ankle 2.7 mm Kreulock FDA Start: 01-28-2021 ORIF, ankle 2.7 mm Kreulock FDA Start: 01-28-2021 ORIF, ankle 2.7 mm Kreulock screw FDA Start: 01-28-2021 ORIF, ankle 3.5 mm Cortical Screw FDA Start: 01-28-2021 ORIF, ankle 3.5 mm Locking Screw FDA Sta rt: 01-28-2021 ORIF, ankle 3.5 mm Locking Screw FDA Sta rt: 01-28-2021 ORIF, ankle Distal Fibula Plate FDA Star t: 01-28-2021 ORIF, ankle 2.7 mm Kreulock FDA Start: 01-28-2021 ORIF, ankle 2.7 mm Kreulock FDA Start: 01-28-2021 ORIF, ankle 2.7 mm Kreulock screw FDA Start: 01-28-2021 ORIF, ankle 3.5 mm Cortical Screw FDA Start: 01-28-2021 ORIF, ankle 3.5 mm Locking Screw FDA Sta rt: 01-28-2021 ORIF, ankle 3.5 mm Locking Screw FDA Sta rt: 01-28-2021 ORIF, ankle Distal Fibula Plate FDA Star t: 01-28-2021 Functional Status Date Assessment Result Facility 12-11-2024 [facility] ionnaire 2 item (PHQ-2) [Reported] [facility] Work Phone: 12-11-2024 Functional status 131/83 [facility] Work Phone: 12-11-2024 Vital signs 72 12/11/2024 2: 46 PM EDT Jane Turpin CMA [facility] Work Phone: 12-11-2024 [facility] Work Phone: 09-06-2024 Patient [facility] ionnaire 2 item (PHQ-2) [Reported] [facility] Work Phone: Clinical Notes 05-27-2021 to 12-11-2024 Patric Willis PA-C - 12/11/2024 3:00 PM Selvin Willis PA-C - 09/06/2024 1:20 PM Selvin Willis PA-C - 04/20/2024 2:00 PM Karen Thomas CNP - 03/09/2024 5:30 PM EST Note Date & Type Note Facility 12-11-2024 History of Present illness Narrative Subjective Patient ID: Terri Beauchamp is a 49 y.o. female who presents for Follow-up (F/U WITH LABS AND MED CHECK) HPI LABS Med check HTN - lisinopril / hydrochlorothiazide DM - stable on mounajro 5 - *inc to 7.5 Depression /BRIDGET - lexapro Benign essential tremor - topomax Lumbar DDD / Bulge/ radiating pain into leg/neuropathy - Pain clinic - Dr Keane - [place] - gets injections every 3-4 - consider he may manage gabapentin in the future (currently not needing gabapentin) Mild intermittent asthma - rescue inhaler Migraines - , maxalt, nortriptyline GERD - PPI OAB/ Urinary - Uro in [place] - Dr mas - mybetriq Preventative testing PAP 2022- WNL Mammo -June 17 2023 [place] DEXA Colon - Feb 2024 - polyp- pre cancerous- - [facility] Fall - NEG APR 2024 PHQ2 - NEG apr 2024 Increased Grief - she lost her daughter nov 2020 Problem List[1] Review of Systems Constitutional: Positive for fatigue. Negative for chills and fever. HENT: Negative for congestion, rhinorrhea, sinus pain, sore throat and tinnitus. Eyes: Negative for discharge, redness and visual disturbance. Respiratory: Negative for cough, chest tightness, shortness of breath and wheezing. Cardiovascular: Negative for chest pain, palpitations and leg swelling. Gastrointestinal: Negative for abdominal pain, constipation, diarrhea, nausea and vomiting. Endocrine: Negative for cold intolerance and heat intolerance. Genitourinary: Negative for flank pain, frequency and urgency. Musculoskeletal: Positive for arthralgias and back pain. Negative for gait problem and neck pain. Skin: Negative for rash and wound. Neurological: Positive for tremors and headaches. Negative for dizziness, syncope and numbness. Hematological: Does not bruise/bleed easily. Psychiatric/Behavioral: Positive for dysphoric mood. Negative for confusion, sleep disturbance and suicidal ideas. The patient is nervous/anxious. Medical History[2] Surgical History[3] Family History[4] Social History[5] Allergies[6] Current Medications[7] Objective BP 131/83 Pulse 72 Ht 1.676 m (5' 6) Wt 81.6 kg (180 lb) BMI 29.05 kg/m Physical Exam Vitals reviewed. Constitutional: Appearance: Normal appearance. HENT: Head: Normocephalic. Right Ear: External ear normal. Left Ear: External ear normal. Nose: Nose normal. No congestion or rhinorrhea. Mouth/Throat: Mouth: Mucous membranes are moist. Eyes: Extraocular Movements: Extraocular movements intact. Conjunctiva/sclera: Conjunctivae normal. Pupils: Pupils are equal, round, and reactive to light. Cardiovascular: Rate and Rhythm: Normal rate and regular rhythm. Pulses: Normal pulses. Pulmonary: Effort: Pulmonary effort is normal. Breath sounds: Normal breath sounds. Abdominal: General: Bowel sounds are normal. Palpations: Abdomen is soft. Tenderness: There is no abdominal tenderness. There is no right CVA tenderness or left CVA tenderness. Musculoskeletal: General: Tenderness present. Normal range of motion. Cervical back: Normal range of motion and neck supple. No tenderness. Skin: General: Skin is warm and dry. Neurological: General: No focal deficit present. Mental Status: She is alert and oriented to person, place, and time. Psychiatric: Mood and Affect: Mood normal. Behavior: Behavior normal. Labs at [facility] Nov 2024 Microalbumin urine CMP -glucose -91 -rest approp Hgba1c 6.0* Impression MDM 1) COMPLEXITY: MORE THAN 1 STABLE CHRONIC CONDITION ADDRESSED 2)DATA: TESTS INTERPRETED AND OR ORDERED, TOOK INDEPENDENT HISTORY OR RECORDS REVIEWED 3)RISK: MODERATE RISK DUE TO NATURE OF MEDICAL CONDITIONS/COMORBIDITY OR MEDICATIONS ORDERED OR SURGICAL OR PROCEDURE REFERRAL, . Reviewed labs and Testing on file Patient to follow diet low in cholesterol, fat, and sodium. Patient is advised to increase Exercise. Patient is recommended to lose weight. Reviewed Meds and discussed common side effects Continue as directed Patient is strongly advised to be compliant with recommendations. Return to Clinic sooner if needed. Patient denies further questions/concerns at this time Assessment/Plan Problem List Items Addressed This Visit ICD-10-CM BRIDGET (generalized anxiety disorder) F41.1 Migraine G43.909 Relevant Medications rizatriptan (Maxalt) 5 mg tablet Primary hypertension I10 Relevant Medications lisinopril 20 mg tablet Other Relevant Orders Albumin-Creatinine Ratio, Urine Random CBC and Auto Differential Comprehensive Metabolic Panel Hemoglobin A1C Lipid Panel Thyroid Stimulating Hormone Thyroxine, Free Magnesium Vitamin D 25-Hydroxy,Total (for eval of Vitamin D levels) Vitamin D deficiency E55.9 Relevant Orders Vitamin D 25-Hydroxy,Total (for eval of Vitamin D levels) Depression, major, recurrent, mild F33.0 Relevant Medications tirzepatide (Mounjaro) 7.5 mg/0.5 mL pen injector Benign essential tremor G25.0 Overweight (BMI 25.0-29.9) E66.3 Controlled type 2 diabetes mellitus with hyperglycemia, without long-term current use of insulin (Multi) - Primary E11.65 Relevant Medications lisinopril 20 mg tablet tirzepatide (Mounjaro) 7.5 mg/0.5 mL pen injector Other Relevant Orders Albumin-Creatinine Ratio, Urine Random CBC and Auto Differential Comprehensive Metabolic Panel Hemoglobin A1C Lipid Panel Thyroid Stimulating Hormone Thyroxine, Free Magnesium Vitamin D 25-Hydroxy,Total (for eval of Vitamin D levels) FU in 6 mo with labs at [facility] fasting and med check [1] Patient Active Problem List Diagnosis BRIDGET (generalized anxiety disorder) Degeneration of intervertebral disc of lumbar region Glucose intolerance (impaired glucose tolerance) Migraine Mild intermittent asthma without complication ([facility]-HCC) Neuropathy of right sciatic nerve Primary hypertension Tremor of both hands Carpal tunnel syndrome of left wrist Vitamin D deficiency History of iron deficiency Dyspepsia Depression, major, recurrent, mild Benign essential tremor Class 1 obesity due to excess calories with serious comorbidity and body mass index (BMI) of 31.0 to 31.9 in adult [2] Past Medical History: Diagnosis Date Allergic Anxiety Asthma ([facility]-HCC) Depression GERD (gastroesophageal reflux disease) Hypertension Migraine [3] Past Surgical History: Procedure Laterality Date CARPAL TUNNEL RELEASE Bilateral CHOLECYSTECTOMY FRACTURE SURGERY on ankle WISDOM TOOTH EXTRACTION [4] Family History Problem Relation Name Age of Onset Other (oral cancer) Mother Heart disease Father Mack Ovarian cancer Other aunt Squamous cell carcinoma Other aunt Lung cancer Other uncle Arthritis Mother Angelique Asthma Mother Angelique Cancer Mother Angelique COPD Mother Angelique Hypertension Mother Angelique Ovarian cancer Mother Angelique Asthma Sister Crystal Miscarriages / Stillbirths Sister Crystal Cancer Mother's Brother Xavi Cancer Mother's Sister Dominique Diabetes Paternal Grandfather Mack Heart disease Paternal Grandfather Mack Hypertension Paternal Grandfather Mack Hyperlipidemia Father Mack Hypertension Father Mack Cancer Father Mack Heart disease Father's Brother Grabiel Mental illness Maternal Grandmother Liliana Depression Maternal Grandmother Liliana Miscarriages / Stillbirths Sister June Diabetes Mother's Sister Dianna [5] Social History Tobacco Use Smoking status: Never Passive exposure: Never Smokeless tobacco: Never Vaping Use Vaping status: Never Used Substance Use Topics Alcohol use: Never Drug use: Never [6] No Known Allergies [7] Current Outpatient Medications Medication Sig Dispense Refill albuterol 90 mcg/actuation inhaler Inhale 2 puffs every 6 hours if needed. escitalopram (Lexapro) 20 mg tablet Take 1 tablet (20 mg) by mouth early in the morning.. 90 tablet 3 hydroCHLOROthiazide (Microzide) 12.5 mg tablet Take 1 tablet (12.5 mg) by mouth once daily. 90 tablet 3 lisinopril 20 mg tablet Take 1 tablet (20 mg) by mouth once daily. 90 tablet 1 mirabegron (Myrbetriq) 50 mg tablet extended release 24 hr 24 hr tablet Take 1 tablet (50 mg) by mouth once daily. nortriptyline (Pamelor) 10 mg capsule Take 1 capsule (10 mg) by mouth 2 times a day. 180 capsule 3 omeprazole (PriLOSEC) [address] capsule Take 1 capsule (20 mg) by mouth once daily. 90 capsule 3 rizatriptan (Maxalt) 5 mg tablet Take 1 tablet (5 mg) by mouth 1 time if needed for migraine. 9 tablet 1 tirzepatide (Mounjaro) 5 mg/0.5 mL pen injector Inject 5 mg under the skin 1 (one) time per week. 6 mL 1 topiramate (Topamax) 50 mg tablet Take 1 tablet (50 mg) by mouth once daily. 90 tablet 3 No current facility-administered medications for this visit. documented in this encounter [facility] Work Phone: 09-06-2024 History of Present illness Narrative Subjective Patient ID: Terri Beauchamp is a 49 y.o. female who presents for Follow-up (3 MONTH FOLLOW UP NO LABS ) Diabetes She has type 2 diabetes mellitus. No MedicAlert identification noted. The initial diagnosis of diabetes was made 6 months ago. Hypoglycemia symptoms include nervousness/anxiousness. Pertinent negatives for hypoglycemia include no confusion, dizziness, headaches, hunger, mood changes, pallor, seizures, sleepiness, speech difficulty, sweats or tremors. Associated symptoms include weight loss. Pertinent negatives for diabetes include no blurred vision, no chest pain, no fatigue, no foot paresthesias, no foot ulcerations, no polydipsia, no polyphagia, no polyuria, no visual change and no weakness. Pertinent negatives for hypoglycemia complications include no blackouts, no hospitalization, no nocturnal hypoglycemia, no required assistance and no required glucagon injection. Symptoms are improving. Pertinent negatives for diabetic complications include no CVA, heart disease, impotence, nephropathy, peripheral neuropathy, PVD or retinopathy. Risk factors for coronary artery disease include family history, hypertension and obesity. Current diabetic treatment includes oral agent (monotherapy). She is compliant with treatment all of the time. Her weight is decreasing steadily. She is following a generally healthy diet. Meal planning includes avoidance of concentrated sweets. She has not had a previous visit with a dietitian. She participates in exercise three times a week. Her breakfast blood glucose is taken between 7-8 am. She does not see a animal husbandry worker.Eye exam is not current. LABS - not done Med check HTN - lisinopril / hydrochlorothiazide DM - stable on mounajro 5 - consider inc but I would like to get udpated labs first Depression /BRIDGET - lexapro Benign essential tremor - topomax Lumbar DDD / Bulge/ radiating pain into leg/neuropathy - Pain clinic - Dr Keane - [place] - gets injections every 3-4 - consider he may manage gabapentin in the future (currently not needing gabapentin) Mild intermittent asthma - rescue inhaler Migraines - , maxalt, nortriptyline GERD - PPI OAB/ Urinary - Uro in [place] - Dr mas - mybetriq Preventative testing PAP 2022- WNL Mammo -June 17 2023 [place] DEXA Colon - Feb 2024 - polyp- pre cancerous - 3-5 days - - [facility] Fall - NEG APR 2024 PHQ2 - NEG apr 2024 Problem List[1] Review of Systems Constitutional: Positive for weight loss. Negative for chills, fatigue and fever. HENT: Negative for congestion, rhinorrhea, sinus pain, sore throat and tinnitus. Eyes: Negative for blurred vision, discharge, redness and visual disturbance. Respiratory: Negative for cough, chest tightness, shortness of breath and wheezing. Cardiovascular: Negative for chest pain, palpitations and leg swelling. Gastrointestinal: Negative for abdominal pain, constipation, diarrhea, nausea and vomiting. Endocrine: Negative for cold intolerance, heat intolerance, polydipsia, polyphagia and polyuria. Genitourinary: Negative for flank pain, frequency, impotence and urgency. Musculoskeletal: Negative for back pain, gait problem and neck pain. Skin: Negative for pallor, rash and wound. Neurological: Negative for dizziness, tremors, seizures, syncope, speech difficulty, weakness, numbness and headaches. Hematological: Does not bruise/bleed easily. Psychiatric/Behavioral: Positive for dysphoric mood. Negative for confusion, sleep disturbance and suicidal ideas. The patient is nervous/anxious. Medical History[2] Surgical History[3] Family History[4] Social History[5] Allergies[6] Current Medications[7] Objective BP 112/76 Pulse 90 Ht 1.676 m (5' 6) Wt 89.5 kg (197 lb 4.8 oz) BMI 31.85 kg/m Physical Exam Vitals reviewed. Constitutional: Appearance: Normal appearance. She is obese. HENT: Head: Normocephalic. Right Ear: External ear normal. Left Ear: External ear normal. Nose: Nose normal. No congestion or rhinorrhea. Mouth/Throat: Mouth: Mucous membranes are moist. Eyes: Extraocular Movements: Extraocular movements intact. Conjunctiva/sclera: Conjunctivae normal. Pupils: Pupils are equal, round, and reactive to light. Cardiovascular: Rate and Rhythm: Normal rate and regular rhythm. Pulses: Normal pulses. Pulmonary: Effort: Pulmonary effort is normal. Breath sounds: Normal breath sounds. Abdominal: General: Bowel sounds are normal. Palpations: Abdomen is soft. Tenderness: There is no abdominal tenderness. There is no right CVA tenderness or left CVA tenderness. Musculoskeletal: General: Tenderness present. Normal range of motion. Cervical back: Normal range of motion and neck supple. No tenderness. Skin: General: Skin is warm and dry. Neurological: General: No focal deficit present. Mental Status: She is alert and oriented to person, place, and time. Psychiatric: Mood and Affect: Mood normal. Behavior: Behavior normal. Testing Reviewed labs on file Reviewed labs ordered to be done in near future Impression MDM 1) COMPLEXITY: MORE THAN 1 STABLE CHRONIC CONDITION ADDRESSED 2)DATA: TESTS INTERPRETED AND OR ORDERED, TOOK INDEPENDENT HISTORY OR RECORDS REVIEWED 3)RISK: MODERATE RISK DUE TO NATURE OF MEDICAL CONDITIONS/COMORBIDITY OR MEDICATIONS ORDERED OR SURGICAL OR PROCEDURE REFERRAL, . Reviewed labs and Testing on file Patient to follow diet low in cholesterol, fat, and sodium. Patient is advised to increase Exercise. Patient is recommended to lose weight. Reviewed Meds and discussed common side effects Continue as directed Patient is strongly advised to be compliant with recommendations. Return to Clinic sooner if needed. Patient denies further questions/concerns at this time Assessment/Plan Problem List Items Addressed This Visit ICD-10-CM BRIDGET (generalized anxiety disorder) F41.1 Relevant Medications escitalopram (Lexapro) 20 mg tablet Migraine G43.909 Relevant Medications nortriptyline (Pamelor) 10 mg capsule rizatriptan (Maxalt) 5 mg tablet Primary hypertension I10 Relevant Medications hydroCHLOROthiazide (Microzide) 12.5 mg tablet Depression, major, recurrent, mild F33.0 Relevant Medications escitalopram (Lexapro) 20 mg tablet nortriptyline (Pamelor) 10 mg capsule Benign essential tremor G25.0 Class 1 obesity due to excess calories with serious comorbidity and body mass index (BMI) of 31.0 to 31.9 in adult E66.811, E66.09, Z68.31 Other Visit Diagnoses Codes Controlled type 2 diabetes mellitus with hyperglycemia, without long-term current use of insulin E11.65 FU in 1 mo with labs at [facility] - print labs ordered may 25, 2024 [1] Patient Active Problem List Diagnosis BRIDGET (generalized anxiety disorder) Degeneration of intervertebral disc of lumbar region Ganglion cyst of wrist, left Glucose intolerance (impaired glucose tolerance) Migraine Mild intermittent asthma without complication ([facility]) Neuropathy of right sciatic nerve Primary hypertension Tremor of both hands Carpal tunnel syndrome of left wrist Vitamin D deficiency History of iron deficiency Dyspepsia Depression, major, recurrent, mild Benign essential tremor Class 2 severe obesity due to excess calories with serious comorbidity and body mass index (BMI) of 35.0 to 35.9 in adult [2] Past Medical History: Diagnosis Date Allergic Anxiety Asthma Depression GERD (gastroesophageal reflux disease) Hypertension Migraine [3] Past Surgical History: Procedure Laterality Date CARPAL TUNNEL RELEASE Bilateral CHOLECYSTECTOMY FRACTURE SURGERY on ankle WISDOM TOOTH EXTRACTION [4] Family History Problem Relation Name Age of Onset Other (oral cancer) Mother Heart disease Father Mack Ovarian cancer Other aunt Squamous cell carcinoma Other aunt Lung cancer Other uncle Arthritis Mother Angelique Asthma Mother Angelique Cancer Mother Angelique COPD Mother Angelique Hypertension Mother Angelique Ovarian cancer Mother Angelique Asthma Sister Michela Miscarriages / Stillbirths Sister Crystal Cancer Mother's Brother Xavi Cancer Mother's Sister Dominique Diabetes Paternal Grandfather Mack Heart disease Paternal Grandfather Mack Hypertension Paternal Grandfather Mack Hyperlipidemia Father Mack Hypertension Father Mack Cancer Father Mack Heart disease Father's Brother Grabiel Mental illness Maternal Grandmother Liliana Depression Maternal Grandmother Liliana Miscarriages / Stillbirths Sister Lia Diabetes Mother's Sister Dianna [5] Social History Tobacco Use Smoking status: Never Passive exposure: Never Smokeless tobacco: Never Vaping Use Vaping status: Never Used Substance Use Topics Alcohol use: Never Drug use: Never [6] No Known Allergies [7] Current Outpatient Medications Medication Sig Dispense Refill albuterol 90 mcg/actuation inhaler Inhale 2 puffs every 6 hours if needed. escitalopram (Lexapro) 20 mg tablet Take 1 tablet (20 mg) by mouth early in the morning.. hydroCHLOROthiazide (Microzide) 12.5 mg tablet Take 1 tablet (12.5 mg) by mouth once daily. lisinopril 20 mg tablet Take 1 tablet (20 mg) by mouth once daily. mirabegron (Myrbetriq) 50 mg tablet extended release 24 hr 24 hr tablet Take 1 tablet (50 mg) by mouth once daily. nortriptyline (Pamelor) 10 mg capsule Take 1 capsule (10 mg) by mouth twice a day. omeprazole (PriLOSEC) [address] capsule Take 1 capsule (20 mg) by mouth once daily. 90 capsule 3 rizatriptan (Maxalt) 5 mg tablet Take 1 tablet (5 mg) by mouth. tirzepatide (Mounjaro) 5 mg/0.5 mL pen injector Inject 5 mg under the skin 1 (one) time per week. 8 mL 0 topiramate (Topamax) 50 mg tablet Take 1 tablet (50 mg) by mouth once daily. 90 tablet 3 gabapentin (Neurontin) 300 mg capsule Take 1 capsule (300 mg) by mouth 3 times a day. OARRS Reviewed void script and RF 80 days from written date 90 capsule 2 tirzepatide (Mounjaro) 2.5 mg/0.5 mL pen injector Inject 2.5 mg under the skin 1 (one) time per week. 2 mL 2 No current facility-administered medications for this visit. documented in this encounter [facility] Work Phone: 04-20-2024 History of Present illness Narrative Subjective Patient ID: Terri Beauchamp is a 49 y.o. female who presents for New Patient Visit (New patient ) HPI Est as new patient Med check HTN - lisinopril / hydrochlorothiazide Impaired fasting glucose Depression /BRIDGET - lexapro Benign essential tremor - topomax Lumbar DDD / Bulge/ radiating pain into leg/neuropathy - Pain clinic - Dr Keane - [place] - gets injections every 3-4 - consider he may manage gabapentin in the future Mild intermittent asthma - rescue inhaler Migraines - , maxalt, nortriptyline GERD - PPI OAB/ Urinary - Uro in [place] - Dr mas - mybetriq Weight loss - was on contrave and states this helps her kick start the weight loss but often isn't on for more than a few months given cost. She denies being on other meds in the past Adipex - consider but given the tremor and anxiety I am hesitant Injectable - pt to look into insurance coverage and copy cards Discussed weight loss clinic with compound medicine as well being an option Preventative testing PAP 2022- WNL Mammo -June 17 2023 [place] DEXA Colon - Feb 2024 - polyp- pre cancerous - 3-5 days - - [facility] Fall - NEG APR 2024 PHQ2 - NEG apr 2024 OARRS: Patric Willis PA-C on 04/20/2024 3:10 PM I have personally reviewed the OARRS report for Terri Beauchamp. I have considered the risks of abuse, dependence, addiction and diversion and I believe that it is clinically appropriate for Terri Beauchamp to be prescribed this medication Is the patient prescribed a combination of a benzodiazepine and opioid? Yes, I feel it is clincially indicated to continue the medication and have discussed with the patient risks/benefits/alternatives. Last Urine Drug Screen / ordered today: Yes No results found for this or any previous visit (from the past 8760 hours). N/A Controlled Substance Agreement: Date of the Last Agreement: 04/19/2024 Reviewed Controlled Substance Agreement including but not limited to the benefits, risks, and alternatives to treatment with a Controlled Substance medication(s). Gabapentin : What is the patient's goal of therapy? To min back pain and neuropathy symptoms Is this being achieved with current treatment? Yes Pain Assessment: Analgesia What was your pain level on average during the past week?: 5 What was your pain level at its worst during the past week?: 8 What percentage of your pain has been relieved during the past week?: 75 % Is the amount of pain relief you are now obtaining from your current pain relievers enough to make a real difference in your life?: Y Query to Clinician: Is the patient's pain relief clinically significant?: Yes Activities of Daily Living Physical Functioning: Better Family Relationships: Better Social Relationships: Better Mood: Better Sleep Patterns: Better Overall Functioning: Better Adverse Events Is patient experiencing any side effects from current pain relievers?: N Patient's Overall Severity of Side Effects: None Assessment Is your overall impression that this patient is benefiting from opioid therapy?: Yes Specific Analgesic Plan: Continue present regimen Activities of Daily Living: Is your overall impression that this patient is benefiting (symptom reduction outweighs side effects) from Gabapentin therapy? Yes 1. Physical Functioning: Better 2. Family Relationship: Better 3. Social Relationship: Better 4. Mood: Better 5. Sleep Patterns: Better 6. Overall Function: Better Patient Active Problem List Diagnosis BRIDGET (generalized anxiety disorder) Degeneration of intervertebral disc of lumbar region Ganglion cyst of wrist, left Glucose intolerance (impaired glucose tolerance) Migraine Mild intermittent asthma without complication (HHS-HCC) Neuropathy of right sciatic nerve Primary hypertension Tremor of both hands Carpal tunnel syndrome of left wrist Vitamin D deficiency History of iron deficiency Dyspepsia Depression, major, recurrent, mild (CMS-HCC) Benign essential tremor Class 2 severe obesity due to excess calories with serious comorbidity and body mass index (BMI) of 35.0 to 35.9 in adult Review of Systems Constitutional: Positive for fatigue. Negative for chills and fever. HENT: Negative for congestion, rhinorrhea, sinus pain, sore throat and tinnitus. Eyes: Negative for discharge, redness and visual disturbance. Respiratory: Negative for cough, chest tightness, shortness of breath and wheezing. Cardiovascular: Negative for chest pain, palpitations and leg swelling. Gastrointestinal: Negative for abdominal pain, constipation, diarrhea, nausea and vomiting. Endocrine: Negative for cold intolerance and heat intolerance. Genitourinary: Negative for flank pain, frequency and urgency. Musculoskeletal: Positive for arthralgias and back pain. Negative for gait problem and neck pain. Skin: Negative for rash and wound. Neurological: Positive for tremors. Negative for dizziness, syncope, numbness and headaches. Hematological: Does not bruise/bleed easily. Psychiatric/Behavioral: Positive for dysphoric mood. Negative for confusion, sleep disturbance and suicidal ideas. The patient is nervous/anxious. Past Medical History: Diagnosis Date Anxiety Asthma Depression GERD (gastroesophageal reflux disease) Hypertension Migraine Past Surgical History: Procedure Laterality Date CARPAL TUNNEL RELEASE Bilateral CHOLECYSTECTOMY FRACTURE SURGERY on ankle WISDOM TOOTH EXTRACTION Family History Problem Relation Name Age of Onset Other (oral cancer) Mother No Known Problems Father Ovarian cancer Other aunt Squamous cell carcinoma Other aunt Lung cancer Other uncle Social History Tobacco Use Smoking status: Never Passive exposure: Never Smokeless tobacco: Never Substance Use Topics Alcohol use: Never Drug use: Never No Known Allergies Current Outpatient Medications Medication Sig Dispense Refill albuterol 90 mcg/actuation inhaler Inhale 2 puffs every 6 hours if needed. escitalopram (Lexapro) 20 mg tablet Take 1 tablet (20 mg) by mouth early in the morning.. hydroCHLOROthiazide (Microzide) 12.5 mg tablet Take 1 tablet (12.5 mg) by mouth once daily. lisinopril 20 mg tablet Take 1 tablet (20 mg) by mouth once daily. mirabegron (Myrbetriq) 50 mg tablet extended release 24 hr 24 hr tablet Take 1 tablet (50 mg) by mouth once daily. nortriptyline (Pamelor) 10 mg capsule Take 1 capsule (10 mg) by mouth twice a day. rizatriptan (Maxalt) 5 mg tablet Take 1 tablet (5 mg) by mouth. topiramate (Topamax) 50 mg tablet Take 1 tablet (50 mg) by mouth once daily. gabapentin (Neurontin) 300 mg capsule Take 1 capsule (300 mg) by mouth 3 times a day. OARRS Reviewed void script and RF 80 days from written date 90 capsule 2 omeprazole (PriLOSEC) [address] capsule Take 1 capsule (20 mg) by mouth once daily. 90 capsule 3 No current facility-administered medications for this visit. Objective BP 133/85 Pulse 94 Ht 1.676 m (5' 6) Wt 101 kg (222 lb 9.6 oz) SpO2 93% BMI 35.93 kg/m Physical Exam Vitals reviewed. Constitutional: Appearance: Normal appearance. She is obese. HENT: Head: Normocephalic. Right Ear: External ear normal. Left Ear: External ear normal. Nose: Nose normal. No congestion or rhinorrhea. Mouth/Throat: Mouth: Mucous membranes are moist. Eyes: Extraocular Movements: Extraocular movements intact. Conjunctiva/sclera: Conjunctivae normal. Pupils: Pupils are equal, round, and reactive to light. Cardiovascular: Rate and Rhythm: Normal rate and regular rhythm. Pulses: Normal pulses. Pulmonary: Effort: Pulmonary effort is normal. Breath sounds: Normal breath sounds. Abdominal: General: Bowel sounds are normal. Palpations: Abdomen is soft. Tenderness: There is no abdominal tenderness. There is no right CVA tenderness or left CVA tenderness. Musculoskeletal: General: No tenderness. Normal range of motion. Cervical back: Normal range of motion and neck supple. No tenderness. Skin: General: Skin is warm and dry. Neurological: General: No focal deficit present. Mental Status: She is alert and oriented to person, place, and time. Psychiatric: Mood and Affect: Mood normal. Behavior: Behavior normal. Testing Reviewed old labs she had on her phone and will get records Mar 2023 CBC CMP Lipid Vit D - low Reviewed prior MRI indicating the DDD, arthritic changes, bulging disc L spine Impression MDM 1) COMPLEXITY: MORE THAN 1 STABLE CHRONIC CONDITION ADDRESSED 2)DATA: TESTS INTERPRETED AND OR ORDERED, TOOK INDEPENDENT HISTORY OR RECORDS REVIEWED 3)RISK: MODERATE RISK DUE TO NATURE OF MEDICAL CONDITIONS/COMORBIDITY OR MEDICATIONS ORDERED OR SURGICAL OR PROCEDURE REFERRAL, . Reviewed labs and Testing on file Patient to follow diet low in cholesterol, fat, and sodium. Patient is advised to increase Exercise. Patient is recommended to lose weight. Reviewed Meds and discussed common side effects Continue as directed Patient is strongly advised to be compliant with recommendations. Return to Clinic sooner if needed. Patient denies further questions/concerns at this time Assessment/Plan Problem List Items Addressed This Visit ICD-10-CM BRIDGET (generalized anxiety disorder) F41.1 Degeneration of intervertebral disc of lumbar region M51.369 Relevant Medications gabapentin (Neurontin) 300 mg capsule Glucose intolerance (impaired glucose tolerance) R73.02 Relevant Orders CBC and Auto Differential Comprehensive Metabolic Panel Hemoglobin A1C Lipid Panel Thyroid Stimulating Hormone Thyroxine, Free Iron and TIBC Ferritin Magnesium Vitamin B12 Vitamin D 25-Hydroxy,Total (for eval of Vitamin D levels) Mild intermittent asthma without complication (HHS-HCC) J45.20 Primary hypertension I10 Relevant Orders CBC and Auto Differential Comprehensive Metabolic Panel Hemoglobin A1C Lipid Panel Thyroid Stimulating Hormone Thyroxine, Free Iron and TIBC Ferritin Magnesium Vitamin B12 Vitamin D 25-Hydroxy,Total (for eval of Vitamin D levels) Vitamin D deficiency E55.9 Relevant Orders Vitamin D 25-Hydroxy,Total (for eval of Vitamin D levels) History of iron deficiency Z86.39 Relevant Orders Iron and TIBC Ferritin Dyspepsia R10.13 Relevant Medications omeprazole (PriLOSEC) [address] capsule Depression, major, recurrent, mild (CMS-HCC) F33.0 Benign essential tremor G25.0 Class 2 severe obesity due to excess calories with serious comorbidity and body mass index (BMI) of 35.0 to 35.9 in adult E66.812, E66.01, Z68.35 Other Visit Diagnoses Codes Encounter to establish care with new doctor - Primary Z76.89 Encounter for screening mammogram for breast cancer Z12.31 Relevant Orders BI mammo bilateral screening tomosynthesis Medication management Z79.899 Relevant Orders Opiate/Opioid/Benzo Prescription Compliance Encounter for dietary counseling and surveillance Z71.3 FU in 3 mo with labs at [facility] fasting and med check Mammo - [facility] apri 12 or after documented in this encounter [facility] Work Phone: 04-08-2024 Note Terri garcia today 6 week followup left wrist mass excision, removal. The patient at this point in time, doing well. Wound is healed. No signs of infection. Full range of motion. Neurologically intact. 2+ pulses. IMPRESSION Six weeks' ganglion cyst excision, left wrist. PLAN She will do activities as tolerated. I will see her on a p.r.n. basis. AUTHENTICATED BY ANUP KING, ON 04/08/2024 16:14:51 [facility] 03-13-2024 Telephone encounter Note Last OV 12/13/23. Next OV 05/09/24. [facility] 03-13-2024 Miscellaneous Notes Last OV 12/13/23. Next OV 05/09/24. documented in this encounter [facility] 03-09-2024 Note [facility] [address] [facility] [address] [facility] [id number] Chief Complaint Patient presents with Left Wrist - Follow-up, Suture / Staple Removal Terri Beauchamp returns to the office today for post op left wrist ganglion cyst removal. She is doing very well. She has been wearing her brace as instructed. She is not having any pain. She has some soreness but overall she is doing great. No numbness and tingling into the hand or fingers. The patient's past medical history, surgical history, social history, family history, medications and allergies were reviewed with the patient today and are available in the chart for further review. No Known Allergies Current Outpatient Medications: albuterol 90 mcg/actuation inhaler, Inhale 2 (two) puffs every 6 (six) hours as needed for wheezing ., Disp: , Rfl: escitalopram oxalate (LEXAPRO) 10 MG tablet, Take 2 (two) tablets (20 mg total) by mouth daily ., Disp: , Rfl: gabapentin (NEURONTIN) 300 MG capsule, Take 1 (one) capsule (300 mg total) by mouth every 8 (eight) hours Taking 2 tablets at night ., Disp: , Rfl: hydrochlorothiazide (HYDRODIURIL) 12.5 MG tablet, , Disp: , Rfl: lisinopril (PRINIVIL,ZESTRIL) 20 MG tablet, , Disp: , Rfl: mirabegron (MYRBETRIQ) 50 mg Tb24, Take 1 (one) tablet (50 mg total) by mouth daily ., Disp: , Rfl: nortriptyline (PAMELOR) 10 MG capsule, 2 (two) times a day ., Disp: , Rfl: omeprazole (PRILOSEC) 20 MG capsule, Take 1 (one) capsule (20 mg total) by mouth daily ., Disp: , Rfl: rizatriptan (MAXALT) 5 MG tablet, Take 1 (one) tablet (5 mg total) by mouth as needed for migraine May repeat in 2 hours if needed ., Disp: , Rfl: topiramate (TOPAMAX) 50 MG tablet, Take 1 (one) tablet (50 mg total) by mouth daily ., Disp: 90 tablet, Rfl: 1 Past Medical History: Diagnosis Date Asthma Complication of anesthesia DDD (degenerative disc disease), lumbar Depression GERD (gastroesophageal reflux disease) Hypertension Obesity Overactive bladder PONV (postoperative nausea and vomiting) Tremor of both hands Past Surgical History: Procedure Laterality Date ANKLE FRACTURE SURGERY Left left ankle tendon tighten 5 yrs ago, then reconstructive surgery, 3 total surgies CARPAL TUNNEL RELEASE Right 09/05/2015 Dr. Arpit Stafford CHOLECYSTECTOMY around 2017 COLONOSCOPY N/A 12/21/2023 Procedure: COLONOSCOPY with polypectomy; Surgeon: Camille Meraz MD; [place] [facility]; Service: General Surgery DILATION AND CURETTAGE OF UTERUS ablation, miscarriage OPEN DECOMPRESSION MEDIAN NERVE Left 12/30/2017 Dr. Arpit Stafford [place] EXCISION GANGLION WRIST DORSAL/VOLAR PRIMARY Left 02/23/2024 Procedure: Ganglion cyst removal left wrist; Surgeon: Anup King MD; Location: [facility]; Service: Orthopedic Social History Socioeconomic History Marital status: Tobacco Use Smoking status: Never Smokeless tobacco: Never Vaping Use Vaping status: Never Used Substance and Sexual Activity Alcohol use: Never Drug use: Never Imaging: No imaging at today's visit. Assessment:Sutures removed from patient left wrist. Incision intact, well approximated without drainage, redness or erythema. Neurovascularly intact, Plan: Continue to wear the splint at all times. Continue with otc pain medications as needed. Follow up with Dr. King in 1 month. AUTHENTICATED BY KAREN ARMENTA, ON 03/14/2024 12:59:26 [facility] 03-09-2024 History of Present illness Narrative [facility] [address] [facility] [address] [facility] [id number] Chief Complaint Patient presents with Left Wrist - Follow-up, Suture / Staple Removal Terri Beauchamp returns to the office today for post op left wrist ganglion cyst removal. She is doing very well. She has been wearing her brace as instructed. She is not having any pain. She has some soreness but overall she is doing great. No numbness and tingling into the hand or fingers. The patient's past medical history, surgical history, social history, family history, medications and allergies were reviewed with the patient today and are available in the chart for further review. No Known Allergies Current Outpatient Medications: albuterol 90 mcg/actuation inhaler, Inhale 2 (two) puffs every 6 (six) hours as needed for wheezing ., Disp: , Rfl: escitalopram oxalate (LEXAPRO) 10 MG tablet, Take 2 (two) tablets (20 mg total) by mouth daily ., Disp: , Rfl: gabapentin (NEURONTIN) 300 MG capsule, Take 1 (one) capsule (300 mg total) by mouth every 8 (eight) hours Taking 2 tablets at night ., Disp: , Rfl: hydrochlorothiazide (HYDRODIURIL) 12.5 MG tablet, , Disp: , Rfl: lisinopril (PRINIVIL,ZESTRIL) 20 MG tablet, , Disp: , Rfl: mirabegron (MYRBETRIQ) 50 mg Tb24, Take 1 (one) tablet (50 mg total) by mouth daily ., Disp: , Rfl: nortriptyline (PAMELOR) 10 MG capsule, 2 (two) times a day ., Disp: , Rfl: omeprazole (PRILOSEC) 20 MG capsule, Take 1 (one) capsule (20 mg total) by mouth daily ., Disp: , Rfl: rizatriptan (MAXALT) 5 MG tablet, Take 1 (one) tablet (5 mg total) by mouth as needed for migraine May repeat in 2 hours if needed ., Disp: , Rfl: topiramate (TOPAMAX) 50 MG tablet, Take 1 (one) tablet (50 mg total) by mouth daily ., Disp: 90 tablet, Rfl: 1 Past Medical History: Diagnosis Date Asthma Complication of anesthesia DDD (degenerative disc disease), lumbar Depression GERD (gastroesophageal reflux disease) Hypertension Obesity Overactive bladder PONV (postoperative nausea and vomiting) Tremor of both hands Past Surgical History: Procedure Laterality Date ANKLE FRACTURE SURGERY Left left ankle tendon tighten 5 yrs ago, then reconstructive surgery, 3 total surgies CARPAL TUNNEL RELEASE Right 09/05/2015 Dr. Arpit Stafford CHOLECYSTECTOMY around 2017 COLONOSCOPY N/A 12/21/2023 Procedure: COLONOSCOPY with polypectomy; Surgeon: Camille Meraz MD; [place] [facility]; Service: General Surgery DILATION AND CURETTAGE OF UTERUS ablation, miscarriage OPEN DECOMPRESSION MEDIAN NERVE Left 12/30/2017 Dr. Arpit Stafford [place] EXCISION GANGLION WRIST DORSAL/VOLAR PRIMARY Left 02/23/2024 Procedure: Ganglion cyst removal left wrist; Surgeon: Anup King MD; Location: [facility]; Service: Orthopedic Social History Socioeconomic History Marital status: Tobacco Use Smoking status: Never Smokeless tobacco: Never Vaping Use Vaping status: Never Used Substance and Sexual Activity Alcohol use: Never Drug use: Never Imaging: No imaging at today's visit. Assessment:Sutures removed from patient left wrist. Incision intact, well approximated without drainage, redness or erythema. Neurovascularly intact, Plan: Continue to wear the splint at all times. Continue with otc pain medications as needed. Follow up with Dr. King in 1 month. documented in this encounter [facility] 01-29-2024 Note [facility] [address] [facility] [address] [facility] [id number] Chief Complaint Patient presents with Results Review MRI Terri Beauchamp returns to the office today to review the results of her left wrist MRI. She had a bump appear on the wrist which has just worsened and increased in size. She doesn't want to have it aspirated or injection for fear that it will just come right back and then she will have to wait for surgery. She really just wants to have it removed therefore we ordered a MRI for further evaluation and she is here for review. She denies any new injury or medical changes. The patient's past medical history, surgical history, social history, family history, medications and allergies were reviewed with the patient today and are available in the chart for further review. No Known Allergies Current Outpatient Medications: albuterol 90 mcg/actuation inhaler, Inhale 2 (two) puffs every 6 (six) hours as needed for wheezing ., Disp: , Rfl: escitalopram oxalate (LEXAPRO) 10 MG tablet, Take 2 (two) tablets (20 mg total) by mouth daily ., Disp: , Rfl: gabapentin (NEURONTIN) 300 MG capsule, Take 1 (one) capsule (300 mg total) by mouth every 8 (eight) hours Taking 2 tablets at night ., Disp: , Rfl: hydrochlorothiazide (HYDRODIURIL) 12.5 MG tablet, , Disp: , Rfl: lisinopril (PRINIVIL,ZESTRIL) 20 MG tablet, , Disp: , Rfl: meloxicam (MOBIC) 7.5 MG tablet, TAKE 1 TO 2 TABLETS BY MOUTH DAILY NEEDED WITH FOOD, Disp: , Rfl: mirabegron (MYRBETRIQ) 50 mg Tb24, Take 1 (one) tablet (50 mg total) by mouth daily ., Disp: , Rfl: nortriptyline (PAMELOR) 10 MG capsule, 2 (two) times a day ., Disp: , Rfl: omeprazole (PRILOSEC) 20 MG capsule, Take 1 (one) capsule (20 mg total) by mouth daily ., Disp: , Rfl: rizatriptan (MAXALT) 5 MG tablet, Take 1 (one) tablet (5 mg total) by mouth as needed for migraine May repeat in 2 hours if needed ., Disp: , Rfl: topiramate (TOPAMAX) 50 MG tablet, Take 1 (one) tablet (50 mg total) by mouth daily ., Disp: 90 tablet, Rfl: 1 Past Medical History: Diagnosis Date Asthma Complication of anesthesia DDD (degenerative disc disease), lumbar Depression GERD (gastroesophageal reflux disease) Hypertension Obesity Overactive bladder PONV (postoperative nausea and vomiting) Tremor of both hands Past Surgical History: Procedure Laterality Date ANKLE FRACTURE SURGERY Left left ankle tendon tighten 5 yrs ago, then reconstructive surgery, 3 total surgies CARPAL TUNNEL RELEASE Right 09/05/2015 Dr. Arpit Stafford CHOLECYSTECTOMY around 2017 COLONOSCOPY N/A 12/21/2023 Procedure: COLONOSCOPY with polypectomy; Surgeon: Camille Meraz MD; [place] [facility]; Service: General Surgery DILATION AND CURETTAGE OF UTERUS ablation, miscarriage OPEN DECOMPRESSION MEDIAN NERVE Left 12/30/2017 Dr. Arpit Stafford Social History Socioeconomic History Marital status: Tobacco Use Smoking status: Never Smokeless tobacco: Never Vaping Use Vaping status: Never Used Substance and Sexual Activity Alcohol use: Never Drug use: Never ROS: Review of Systems Musculoskeletal: Positive for arthralgias and joint swelling. Imaging: MRI L Wrist: Multiseptated ganglion cyst at the anterior margin of the radiocarpal joint, overall measuring 1.3 cm AP, 2.3 cm transverse, and 2.3 cm craniocaudad. Assessment/Plan: After reviewing of the MRI images, the patient wishes to move forward with extraction of the left wrist ganglion cyst. The office will contact her to scheduled her surgery in 10-14 days. AUTHENTICATED BY KAREN ARMENTA, ON 01/29/2024 20:04:04 [facility] 01-29-2024 History of Present illness Narrative [facility] [address] [facility] [address] [facility] [phone] Chief Complaint Patient presents with Results Review MRI Terri Beauchamp returns to the office today to review the results of her left wrist MRI. She had a bump appear on the wrist which has just worsened and increased in size. She doesn't want to have it aspirated or injection for fear that it will just come right back and then she will have to wait for surgery. She really just wants to have it removed therefore we ordered a MRI for further evaluation and she is here for review. She denies any new injury or medical changes. The patient's past medical history, surgical history, social history, family history, medications and allergies were reviewed with the patient today and are available in the chart for further review. No Known Allergies Current Outpatient Medications: albuterol 90 mcg/actuation inhaler, Inhale 2 (two) puffs every 6 (six) hours as needed for wheezing ., Disp: , Rfl: escitalopram oxalate (LEXAPRO) 10 MG tablet, Take 2 (two) tablets (20 mg total) by mouth daily ., Disp: , Rfl: gabapentin (NEURONTIN) 300 MG capsule, Take 1 (one) capsule (300 mg total) by mouth every 8 (eight) hours Taking 2 tablets at night ., Disp: , Rfl: hydrochlorothiazide (HYDRODIURIL) 12.5 MG tablet, , Disp: , Rfl: lisinopril (PRINIVIL,ZESTRIL) 20 MG tablet, , Disp: , Rfl: meloxicam (MOBIC) 7.5 MG tablet, TAKE 1 TO 2 TABLETS BY MOUTH DAILY NEEDED WITH FOOD, Disp: , Rfl: mirabegron (MYRBETRIQ) 50 mg Tb24, Take 1 (one) tablet (50 mg total) by mouth daily ., Disp: , Rfl: nortriptyline (PAMELOR) 10 MG capsule, 2 (two) times a day ., Disp: , Rfl: omeprazole (PRILOSEC) 20 MG capsule, Take 1 (one) capsule (20 mg total) by mouth daily ., Disp: , Rfl: rizatriptan (MAXALT) 5 MG tablet, Take 1 (one) tablet (5 mg total) by mouth as needed for migraine May repeat in 2 hours if needed ., Disp: , Rfl: topiramate (TOPAMAX) 50 MG tablet, Take 1 (one) tablet (50 mg total) by mouth daily ., Disp: 90 tablet, Rfl: 1 Past Medical History: Diagnosis Date Asthma Complication of anesthesia DDD (degenerative disc disease), lumbar Depression GERD (gastroesophageal reflux disease) Hypertension Obesity Overactive bladder PONV (postoperative nausea and vomiting) Tremor of both hands Past Surgical History: Procedure Laterality Date ANKLE FRACTURE SURGERY Left left ankle tendon tighten 5 yrs ago, then reconstructive surgery, 3 total surgies CARPAL TUNNEL RELEASE Right 09/05/2015 Dr. Arpit Stafford CHOLECYSTECTOMY around 2017 COLONOSCOPY N/A 12/21/2023 Procedure: COLONOSCOPY with polypectomy; Surgeon: Camille Meraz MD; Location: [facility] [place]; Service: General Surgery DILATION AND CURETTAGE OF UTERUS ablation, miscarriage OPEN DECOMPRESSION MEDIAN NERVE Left 12/30/2017 Dr. Arpit Stafford Social History Socioeconomic History Marital status: Tobacco Use Smoking status: Never Smokeless tobacco: Never Vaping Use Vaping status: Never Used Substance and Sexual Activity Alcohol use: Never Drug use: Never ROS: Review of Systems Musculoskeletal: Positive for arthralgias and joint swelling. Imaging: MRI L Wrist: Multiseptated ganglion cyst at the anterior margin of the radiocarpal joint, overall measuring 1.3 cm AP, 2.3 cm transverse, and 2.3 cm craniocaudad. Assessment/Plan: After reviewing of the MRI images, the patient wishes to move forward with extraction of the left wrist ganglion cyst. The office will contact her to scheduled her surgery in 10-14 days. documented in this encounter [facility] 12-30-2023 Note [facility] [address] [facility] [address] [facility] [id number] Chief Complaint Patient presents with Left Wrist - Other Terri Beauchamp, 48-year-old female, presents to the office today for left wrist pain and swelling. She states that a couple months ago she started noticing a lump along the radial portion of her left wrist. She denies any injury. She does report that this is becoming increasingly painful. It is painful when she bumps it on anything hard. She did see her primary care physician and had thought that this perhaps could be a ganglion cyst. She is not using any type of OTC pain medication on a consistent basis for this. She will on occasion have increased pain towards the medial portion of the wrist. She can also have some intermittent numbness and tingling into the fingers. She does have a history of carpal tunnel surgery. The patient's past medical history, surgical history, social history, family history, medications and allergies were reviewed with the patient today and are available in the chart for further review. No Known Allergies Current Outpatient Medications: albuterol 90 mcg/actuation inhaler, Inhale 2 (two) puffs every 6 (six) hours as needed for wheezing ., Disp: , Rfl: escitalopram oxalate (LEXAPRO) 10 MG tablet, Take 2 (two) tablets (20 mg total) by mouth daily ., Disp: , Rfl: gabapentin (NEURONTIN) 300 MG capsule, Take 1 (one) capsule (300 mg total) by mouth every 8 (eight) hours Taking 2 tablets at night ., Disp: , Rfl: hydrochlorothiazide (HYDRODIURIL) 12.5 MG tablet, , Disp: , Rfl: lisinopril (PRINIVIL,ZESTRIL) 20 MG tablet, , Disp: , Rfl: mirabegron (MYRBETRIQ) 50 mg Tb24, Take 1 (one) tablet (50 mg total) by mouth daily ., Disp: , Rfl: nortriptyline (PAMELOR) 10 MG capsule, 2 (two) times a day ., Disp: , Rfl: omeprazole (PRILOSEC) 20 MG capsule, Take 1 (one) capsule (20 mg total) by mouth daily ., Disp: , Rfl: pregabalin (LYRICA) 25 MG capsule, Take 1-2 capsules by mouth Twice a day for 14 Days, Disp: , Rfl: rizatriptan (MAXALT) 5 MG tablet, Take 1 (one) tablet (5 mg total) by mouth as needed for migraine May repeat in 2 hours if needed ., Disp: , Rfl: topiramate (TOPAMAX) 50 MG tablet, Take 1 (one) tablet (50 mg total) by mouth daily ., Disp: 90 tablet, Rfl: 1 Past Medical History: Diagnosis Date Asthma Complication of anesthesia DDD (degenerative disc disease), lumbar Depression GERD (gastroesophageal reflux disease) Hypertension Obesity Overactive bladder PONV (postoperative nausea and vomiting) Tremor of both hands Past Surgical History: Procedure Laterality Date ANKLE FRACTURE SURGERY Left left ankle tendon tighten 5 yrs ago, then reconstructive surgery, 3 total surgies CARPAL TUNNEL RELEASE Right 09/05/2015 Dr. Arpit Stafford CHOLECYSTECTOMY around 2017 COLONOSCOPY N/A 12/21/2023 Procedure: COLONOSCOPY with polypectomy; Surgeon: Camille Meraz MD; Location: [facility] [place]; Service: General Surgery DILATION AND CURETTAGE OF UTERUS ablation, miscarriage OPEN DECOMPRESSION MEDIAN NERVE Left 12/30/2017 Dr. Arpit Stafford Social History Socioeconomic History Marital status: Tobacco Use Smoking status: Never Smokeless tobacco: Never Vaping Use Vaping status: Never Used Substance and Sexual Activity Alcohol use: Never Drug use: Never ROS: Review of Systems Constitutional: Negative for activity change and fatigue. HENT: Negative for congestion, hearing loss and trouble swallowing. Eyes: Negative for visual disturbance. Respiratory: Negative for chest tightness and shortness of breath. Cardiovascular: Negative for chest pain and palpitations. Gastrointestinal: Negative for abdominal pain, diarrhea, nausea and vomiting. Endocrine: Negative for polydipsia, polyphagia and polyuria. Genitourinary: Negative for decreased urine volume, difficulty urinating and hematuria. Musculoskeletal: Positive for arthralgias and joint swelling. Negative for myalgias. Bump on the inside of the left wrist Skin: Negative for color change, rash and wound. Allergic/Immunologic: Negative for immunocompromised state. Neurological: Negative for dizziness, weakness, light-headedness and numbness. Hematological: Does not bruise/bleed easily. Psychiatric/Behavioral: Negative for confusion and sleep disturbance. The patient is not nervous/anxious. PE: Physical Exam Constitutional: Appearance: She is well-developed. HENT: Head: Normocephalic. Eyes: Pupils: Pupils are equal, round, and reactive to light. Cardiovascular: Rate and Rhythm: Normal rate and regular rhythm. Pulmonary: Effort: Pulmonary effort is normal. Breath sounds: Normal breath sounds. Abdominal: General: Bowel sounds are normal. Palpations: Abdomen is soft. Musculoskeletal: General: Swelling and tenderness present. Normal range of motion. Left hand: Swelling, de (more content not included)... [facility] 12-30-2023 History of Present illness Narrative Images from the original note were not included. [facility] [address] [facility] [address] [facility] [id number] Chief Complaint Patient presents with Left Wrist - Other Terri Beauchamp, 48-year-old female, presents to the office today for left wrist pain and swelling. She states that a couple months ago she started noticing a lump along the radial portion of her left wrist. She denies any injury. She does report that this is becoming increasingly painful. It is painful when she bumps it on anything hard. She did see her primary care physician and had thought that this perhaps could be a ganglion cyst. She is not using any type of OTC pain medication on a consistent basis for this. She will on occasion have increased pain towards the medial portion of the wrist. She can also have some intermittent numbness and tingling into the fingers. She does have a history of carpal tunnel surgery. The patient's past medical history, surgical history, social history, family history, medications and allergies were reviewed with the patient today and are available in the chart for further review. No Known Allergies Current Outpatient Medications: albuterol 90 mcg/actuation inhaler, Inhale 2 (two) puffs every 6 (six) hours as needed for wheezing ., Disp: , Rfl: escitalopram oxalate (LEXAPRO) 10 MG tablet, Take 2 (two) tablets (20 mg total) by mouth daily ., Disp: , Rfl: gabapentin (NEURONTIN) 300 MG capsule, Take 1 (one) capsule (300 mg total) by mouth every 8 (eight) hours Taking 2 tablets at night ., Disp: , Rfl: hydrochlorothiazide (HYDRODIURIL) 12.5 MG tablet, , Disp: , Rfl: lisinopril (PRINIVIL,ZESTRIL) 20 MG tablet, , Disp: , Rfl: mirabegron (MYRBETRIQ) 50 mg Tb24, Take 1 (one) tablet (50 mg total) by mouth daily ., Disp: , Rfl: nortriptyline (PAMELOR) 10 MG capsule, 2 (two) times a day ., Disp: , Rfl: omeprazole (PRILOSEC) 20 MG capsule, Take 1 (one) capsule (20 mg total) by mouth daily ., Disp: , Rfl: pregabalin (LYRICA) 25 MG capsule, Take 1-2 capsules by mouth Twice a day for 14 Days, Disp: , Rfl: rizatriptan (MAXALT) 5 MG tablet, Take 1 (one) tablet (5 mg total) by mouth as needed for migraine May repeat in 2 hours if needed ., Disp: , Rfl: topiramate (TOPAMAX) 50 MG tablet, Take 1 (one) tablet (50 mg total) by mouth daily ., Disp: 90 tablet, Rfl: 1 Past Medical History: Diagnosis Date Asthma Complication of anesthesia DDD (degenerative disc disease), lumbar Depression GERD (gastroesophageal reflux disease) Hypertension Obesity Overactive bladder PONV (postoperative nausea and vomiting) Tremor of both hands Past Surgical History: Procedure Laterality Date ANKLE FRACTURE SURGERY Left left ankle tendon tighten 5 yrs ago, then reconstructive surgery, 3 total surgies CARPAL TUNNEL RELEASE Right 09/05/2015 Dr. Arpit Stafford CHOLECYSTECTOMY around 2017 COLONOSCOPY N/A 12/21/2023 Procedure: COLONOSCOPY with polypectomy; Surgeon: Camille Meraz MD; Location: [facility] [place]; Service: General Surgery DILATION AND CURETTAGE OF UTERUS ablation, miscarriage OPEN DECOMPRESSION MEDIAN NERVE Left 12/30/2017 Dr. Arpit Stafford Social History Socioeconomic History Marital status: Tobacco Use Smoking status: Never Smokeless tobacco: Never Vaping Use Vaping status: Never Used Substance and Sexual Activity Alcohol use: Never Drug use: Never ROS: Review of Systems Constitutional: Negative for activity change and fatigue. HENT: Negative for congestion, hearing loss and trouble swallowing. Eyes: Negative for visual disturbance. Respiratory: Negative for chest tightness and shortness of breath. Cardiovascular: Negative for chest pain and palpitations. Gastrointestinal: Negative for abdominal pain, diarrhea, nausea and vomiting. Endocrine: Negative for polydipsia, polyphagia and polyuria. Genitourinary: Negative for decreased urine volume, difficulty urinating and hematuria. Musculoskeletal: Positive for arthralgias and joint swelling. Negative for myalgias. Bump on the inside of the left wrist Skin: Negative for color change, rash and wound. Allergic/Immunologic: Negative for immunocompromised state. Neurological: Negative for dizziness, weakness, light-headedness and numbness. Hematological: Does not bruise/bleed easily. Psychiatric/Behavioral: Negative for confusion and sleep disturbance. The patient is not nervous/anxious. PE: Physical Exam Constitutional: Appearance: She is well-developed. HENT: Head: Normocephalic. Eyes: Pupils: Pupils are equal, round, and reactive to light. Cardiovascular: Rate and Rhythm: Normal rate and regular rhythm. Pulmonary: Effort: Pulmonary effort is normal. Breath sounds: Normal breath sounds. Abdominal: General: Bowel sounds are normal. Palpations: Abdomen is soft. Musculoskeletal: General: Swelling and tenderness present. Normal range of motion. Left hand: Swelling, deformity and tenderness present. Normal range of motion. Normal strength. Normal sensation. Normal capillary refill. Normal pulse. Hands: Cervical back: Normal range of motion and neck supple. Comments: Hard palpable lump located at the distal radius. Skin: General: Skin is warm and dry. Neurological: Mental Status: She is alert and oriented to person, place, and time. Imaging: Left wrist: No acute fracture or dislocation. There does seem to be an area of soft tissue swelling which could represent a ganglion cyst along the radial portion of the wrist. More distal radius area. Assessment/Plan: After examination and reviewing the patient x-ray images we discussed treatment options for the ganglion cyst. We did discuss conservative measures, aspirating the cyst and then injecting with cortisone. 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 She is concerned that if she tries the aspiration and injection, that it will not work or the cyst will come back at a later date. At this point in time she really just wants to have it surgically removed. Therefore, I did explain that we would need a MRI for further diagnostic evaluation. I will order that and see her back in the office to review those results and discuss further treatment options. documented in this encounter [facility] 12-13-2023 Note Subjective Patient ID: Terri Beauchamp is a 48 y.o. female. Chief Complaint Patient presents with Hand Pain Left hand x 2 weeks Hand Pain Terri comes to office with complaint of left hand cyst for past two weeks. She states that she has had multiple ganglion cysts in the past, and that they are not as painful as this cyst. She states slight touch, or bumping the area she experiences pain. Notes intermittent numbness/tingling to her first three digits, states this occurs more often at night. Denies surrounding redness, warmth or edema. Denies fever or chills. She does have a history bilateral carpal tunnel repair. She started wearing her carpal tunnel braces again, denies relief of symptoms. She has also been applying ice and denies relief of symptoms. The following portions of the patient's history were reviewed and updated as appropriate: allergies, current medications, past family history, past medical history, past social history, past surgical history, and problem list. Past Medical History: Diagnosis Date Asthma DDD (degenerative disc disease), lumbar Depression GERD (gastroesophageal reflux disease) Hypertension Obesity Overactive bladder Tremor of both hands Past Surgical History: Procedure Laterality Date ANKLE FRACTURE SURGERY Left left ankle tendon tighten 5 yrs ago, then reconstructive surgery, 3 total surgies CARPAL TUNNEL RELEASE Right 09/05/2015 Dr. Arpit Stafford CHOLECYSTECTOMY around 2017 DILATION AND CURETTAGE OF UTERUS ablation, miscarriage OPEN DECOMPRESSION MEDIAN NERVE Left 12/30/2017 Dr. Arpit Stafford Social History Tobacco Use Smoking status: Never Smokeless tobacco: Never Substance Use Topics Alcohol use: Never Drug use: Never No family history on file. No Known Allergies Outpatient Medications as of 12/13/2023 Medication Sig albuterol 90 mcg/actuation inhaler Inhale 2 (two) puffs every 6 (six) hours as needed for wheezing . escitalopram oxalate (LEXAPRO) 10 MG tablet Take 2 (two) tablets (20 mg total) by mouth daily . gabapentin (NEURONTIN) 300 MG capsule Take 1 (one) capsule (300 mg total) by mouth every 8 (eight) hours Taking 2 tablets at night . hydrochlorothiazide (HYDRODIURIL) 12.5 MG tablet lisinopril (PRINIVIL,ZESTRIL) 20 MG tablet mirabegron (MYRBETRIQ) 50 mg Tb24 Take 1 (one) tablet (50 mg total) by mouth daily . nortriptyline (PAMELOR) 10 MG capsule 2 (two) times a day . omeprazole (PRILOSEC) 20 MG capsule Take 1 (one) capsule (20 mg total) by mouth daily . rizatriptan (MAXALT) 5 MG tablet Take 1 (one) tablet (5 mg total) by mouth as needed for migraine May repeat in 2 hours if needed . topiramate (TOPAMAX) 50 MG tablet Take 1 (one) tablet (50 mg total) by mouth daily . Review of Systems HENT: Negative. Respiratory: Negative. Cardiovascular: Negative. Skin: Cyst to left radial aspect of wrist, painful Neurological: Negative. Psychiatric/Behavioral: Negative. Objective BP (!) 144/89 (BP Location: Left arm, Patient Position: Sitting, BP Cuff Size: Adult) Pulse 82 Temp 99.3 degrees F (37.4 degrees C) Resp 18 Ht 5' 4 Wt 94.8 kg (208 lb 14.4 oz) SpO2 98% BMI 35.86 kg/m Physical Exam Constitutional: Appearance: She is not toxic-appearing. HENT: Mouth/Throat: Mouth: Mucous membranes are moist. Pharynx: Oropharynx is clear. Eyes: Conjunctiva/sclera: Conjunctivae normal. Pulmonary: Effort: Pulmonary effort is normal. Skin: Comments: Pea sized cyst to radial aspect of wrist, patient states tenderness upon palpation and she became tearful. Cyst like lesion is mobile, symmetrical and fluctuant. No surrounding erythema, edema or redness. Neurological: Mental Status: She is alert and oriented to person, place, and time. Psychiatric: Mood and Affect: Mood normal. Behavior: Behavior normal. Thought Content: Thought content normal. Judgment: Judgment normal. Assessment/Plan: Diagnoses and all orders for this visit: Ganglion cyst of wrist, left Discussed with patient that this likely is a ganglion cyst. Discussed and she would like refer her to orthopedic for removal of cyst. Referral placed to [facility] orthopedics. Discussed with patient she can apply Voltaren gel up to 4 times daily to help with the pain. Discussed with collaborating physician and according to up to date it is not recommended injection of ganglion cysts with glucocorticoids based upon evidence that there is no added benefit, and can potentially increase risk of subcutaneous fat atrophy and skin depigmentation. Discussed with patient as well. Discussed to monitor for signs and symptoms of infection, or worsening symptoms. Patient verbalized understanding and agreement with plan of care. Patient had elevated blood pressure reading today in office, discussed with patient as she is continuing to monitor blood pressure at home and states it is lower than 140/90. States s (more content not included)... [facility] 12-02-2023 Note HISTORY & PHYSICAL E XAMINATION Patient Name: Terri Beauchamp MR #: [id number] : 1975 Physicians: Malka Bernal, PILE TRIMMER (Family); Malka Bernal, * (Referring) Chief Complaint/Reason for Visit: Screening colonoscopy History of Present Illness: Terri Beauchamp is a 48 y.o. y/o female past medical history of hypertension presenting for referral for a colonoscopy. Last colonoscopy was none. Denies any significant changes in her bowel habits. Has not appreciated any blood or black tar-like stool. History: I have reviewed the PMHx, PSHx, SHx, FHx in EMR with the patient during this encounter face to face and patient agrees with the documentation Past Medical History: Diagnosis Date Hypertension Obesity Tremor of both hands Past Surgical History: Procedure Laterality Date ANKLE FRACTURE SURGERY Right left ankle tendon tighten 5 yrs ago CARPAL TUNNEL RELEASE Right 09/05/2015 Dr. Arpit Stafford OPEN DECOMPRESSION MEDIAN NERVE Left 12/30/2017 Dr. Arpit Stafford No family history on file. Social History Socioeconomic History Marital status: Tobacco Use Smoking status: Never Smokeless tobacco: Never Substance and Sexual Activity Alcohol use: Never Drug use: Never Allergy Information: Patient has no known allergies. Home Medications: Outpatient Medications as of 12/02/2023 Medication Sig albuterol 90 mcg/actuation inhaler Inhale 2 (two) puffs every 6 (six) hours as needed for wheezing . escitalopram oxalate (LEXAPRO) 10 MG tablet Take 2 (two) tablets (20 mg total) by mouth daily . gabapentin (NEURONTIN) 300 MG capsule Take 1 (one) capsule (300 mg total) by mouth every 8 (eight) hours Taking 2 tablets at night . hydrochlorothiazide (HYDRODIURIL) 12.5 MG tablet lisinopril (PRINIVIL,ZESTRIL) 20 MG tablet mirabegron (MYRBETRIQ) 50 mg Tb24 Take 1 (one) tablet (50 mg total) by mouth daily . nortriptyline (PAMELOR) 10 MG capsule 2 (two) times a day . omeprazole (PRILOSEC) 20 MG capsule Take 1 (one) capsule (20 mg total) by mouth daily . rizatriptan (MAXALT) 5 MG tablet Take 1 (one) tablet (5 mg total) by mouth as needed for migraine May repeat in 2 hours if needed . topiramate (TOPAMAX) 50 MG tablet Take 1 (one) tablet (50 mg total) by mouth daily . Review of Systems: Review of Systems Physical Examination: Vital Signs: BP (!) 139/92 Pulse 83 Resp 18 Ht 5' 4 Wt 93.9 kg (207 lb) SpO2 92% BMI 35.53 kg/m Physical Exam Physical Exam Constitutional: Appearance: Normal appearance. HENT: Head: Normocephalic. Mouth/Throat: Mouth: Mucous membranes are moist. Eyes: Pupils: Pupils are equal, round, and reactive to light. Cardiovascular: Rate and Rhythm: Normal rate. Pulses: Normal pulses. Pulmonary: Effort: Pulmonary effort is normal. Abdominal: Palpations: Abdomen is soft. Musculoskeletal: General: Normal range of motion. Cervical back: Normal range of motion. Skin: General: Skin is warm. Coloration: Skin is not jaundiced. Neurological: General: No focal deficit present. Mental Status: She is alert. Psychiatric: Mood and Affect: Mood normal. Thought Content: Thought content normal. Laboratory and Additional Data Reviewed: Laboratory 12/02/23 1:56 PM Laboratory Lab Results Component Value Date WBC 7.3 12/23/2017 HGB 13.2 12/23/2017 HCT 39.0 12/23/2017 PLT 333 12/23/2017 No results found for: AMYLASE No results found for: LIPASE Assessment and Plan: Terri Beauchamp is a 48 y.o. y/o female presenting for screening colonoscopy Patient Active Problem List Diagnosis Carpal tunnel syndrome of left wrist Surgery follow-up Impaired fasting glucose Neuropathy of right sciatic nerve Degeneration of intervertebral disc of lumbar region Primary hypertension Anxiety and depression Mild intermittent asthma without complication Migraine Tremor of both hands Plan: Schedule for colonoscopy. The risks and benefits of my recommendations, as well as other treatment options were discussed with the patient today including but not limited to perforation and bleeding. Prep instruction provided and consent obtained. Questions were answered. 1. Encounter for screening for malignant neoplasm of colon Ambulatory referral to General Surgery Case Request Operating Room: COLONOSCOPY Vital signs Height and weight Vital signs POC , Urine Insert peripheral IV lactated Ringers infusion Screening and Health maintenance Colonoscopy - Last colonoscopy none AUTHENTICATED BY CAMILLE MERAZ ON 12/02/2023 14:13:48 [facility] 11-22-2023 History of Present illness Narrative Images from the original note were not included. HPI Chief Complaint Patient presents with Establish Care Subjective: Terri Beauchamp is a pleasant 48 y.o. female and is here for a comprehensive physical exam and to establish care. She was following with PCP in [place], and we are requesting her history to be faxed over. 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 DDD lumbar, and chronic bilateral low back pain with right sided sciatica--- Patient has a history of chronic lower back pain. 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 She has had MRI of her back which showed L2-L5 herniated disc, DDD and stenosis of lower back. She states that she has numbness and tingling to bilateral lower extremities has had multiple trials of prednisone. And was then referred to pain management Dr. Keane, pain management at the [facility]. She had her first back injection on 10/27/2023 and she also takes gabapentin at night for pain. 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 She was also evaluated by neurosurgery and was told no surgical invention at this time. Her follow-up with pain management is at the of this month. Migraines--she has had a history of migraine for many years her maintenance medication for her migraines is nortriptyline 10mg BID and and then her as needed management includes rizatriptin 5mg which she tells me she will take about once a month and then Excedrin as needed. Tremor-states that she has had a tremor to her bilateral hands and head for many years. Tells me she has seen neurology in the past and had testing completed and it was concluded that the tremors were benign. Tells me that she was started on Topamax around March of this year and states that her tremors have improved since initiation of this medication. She does have history of carpal tunnel surgery in bilateral hands and since then has had constant numbness in her first and second finger bilaterally and at times have difficulty with dropping things. Anxiety/depression-states she is doing well on Lexapro. Tells me that she was initially placed on Lexapro many years ago for depression. She then 6 months later came off of this medication but when her youngest daughter turned to she was placed back on it for feeling overwhelm and anxiety with a diagnosis of autism for her daughter. She has since then remained on this medication and states she is doing very well no issues and does not wish to come off this medication. Asthma-Denies any recent asthma exacerbations. Denies waking up throughout the night SOB. Denies SOB, HERNANDEZ, orthopnea, or coughing. 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 HTN-Patient denies chest pain, SOB, lower extremity weakness, heart palpitations, HERNANDEZ, dizziness, lightheadedness. Patient monitors BP at home stating her readings are 120s/70s and she monitors her blood pressure twice weekly. She takes her blood pressure medication in the evening and is currently managed on hydrochlorothiazide and lisinopril. OAB/Incontinence-states she follows with urology yearly, seeing Dr. Addie Siddiqi at [facility] in [place]. She was told she has a prolapse (unsure bladder or uterine) but did try a pessary but was painful for her therefore she completes exercises to help with incontinence and is on Myrbetriq which has been helpful for her. She does not get periods since she has had a uterine ablation in 2006. States she is due for PAP next year 2024. Her last laboratory levels were completed March this year. History of ankle surgery on left, Dr. Gómez. Health Maintenance Topic Date Due Pneumococcal Vaccine: Ped or At-Risk (1 of 2 - PCV) Never done HIV Screening Never done Hepatitis C Screening Never done Colorectal Cancer Screening/Monitoring 2023 Zoster Vaccines (1 of 2) Never done Influenza Vaccine (1) Never done COVID-19 Vaccine (3 - 2022- season) 2023 Wellness Visit 03/25/2024 Mammogram 06/16/2024 Depression Screening/Follow-Up (PHQ-2/9) 11/21/2024 Cervical Cancer Screening 05/27/2026 Tetanus: Every 10yrs 12/19/2031 Preventive Measures: Colon cancer screening (45-75y/o): referral placed to general surgery for colonscopy Mammography (40-75y/o F): June 17 2023, had mammo and US. Pap (21-65 y/o F): Due 2024 Osteoporosis (>65 y/o F): HIV (once): Hep C (once 18-79 y/o): The following portions of the patient's history were reviewed and updated as appropriate: allergies, current medications, past family history, past medical history, past social history, past surgical history and problem list. Past Medical History: Diagnosis Date Hypertension Tremor of both hands Past Surgical History: Procedure Laterality Date ANKLE FRACTURE SURGERY Right left ankle plates ANKLE FRACTURE SURGERY Right left ankle tendon tighten 5 yrs ago Social History Tobacco Use Smoking status: Never Smokeless tobacco: Never Substance Use Topics Alcohol use: No Alcohol/week: 0.0 standard drinks of alcohol Drug use: No No family history on file. No Known Allergies Outpatient Medications as of 11/22/2023 Medication Sig albuterol 90 mcg/actuation inhaler Inhale 2 (two) puffs every 6 (six) hours as needed for wheezing . escitalopram oxalate (LEXAPRO) 10 MG tablet Take 2 (two) tablets (20 mg total) by mouth daily . gabapentin (NEURONTIN) 300 MG capsule Take 1 (one) capsule (300 mg total) by mouth every 8 (eight) hours Taking 2 tablets at night . hydrochlorothiazide (HYDRODIURIL) 12.5 MG tablet lisinopril (PRINIVIL,ZESTRIL) 20 MG tablet nortriptyline (PAMELOR) 10 MG capsule 2 (two) times a day . omeprazole (PRILOSEC) 20 MG capsule Take 1 (one) capsule (20 mg total) by mouth daily . rizatriptan (MAXALT) 5 MG tablet Take 1 (one) tablet (5 mg total) by mouth as needed for migraine May repeat in 2 hours if needed . topiramate (TOPAMAX) 50 MG tablet Take 1 (one) tablet (50 mg total) by mouth daily . [DISCONTINUED] HYDROcodone-acetaminophen (NORCO) 5-325 mg per tablet take 1 tablet by mouth every 6 hours if needed pain [DISCONTINUED] ZOLMitriptan (ZOMIG-ZMT) 5 MG disintegrating tablet Take 5 mg by mouth as needed for migraine. Review of Systems Review of Systems Constitutional: Negative for chills, fever and unexpected weight change. HENT: Negative for rhinorrhea and sore throat. Respiratory: Negative for cough, shortness of breath and wheezing. Cardiovascular: Negative for chest pain and leg swelling. Gastrointestinal: Negative for abdominal pain, blood in stool, constipation, diarrhea and vomiting. Endocrine: Negative for cold intolerance, heat intolerance, polydipsia, polyphagia and polyuria. Genitourinary: Negative for difficulty urinating and dysuria. Musculoskeletal: Positive for back pain. Negative for myalgias. Skin: Negative for rash. Neurological: Positive for tremors, numbness and headaches. Negative for dizziness, syncope, weakness and light-headedness. Psychiatric/Behavioral: Negative. Objective: BP 132/89 (BP Location: Left arm, Patient Position: Sitting, BP Cuff Size: Adult) Pulse 90 Temp 98.3 F (36.8 C) Resp 18 Ht 5' 6 Wt 93.4 kg (206 lb) SpO2 95% BMI 33.25 kg/m Physical Exam Constitutional: General: She is not in acute distress. Appearance: She is not ill-appearing or toxic-appearing. HENT: Right Ear: External ear normal. Left Ear: External ear normal. Nose: Nose normal. Mouth/Throat: Mouth: Mucous membranes are moist. Eyes: Conjunctiva/sclera: Conjunctivae normal. Cardiovascular: Rate and Rhythm: Normal rate and regular rhythm. Pulses: Normal pulses. Heart sounds: Normal heart sounds. No murmur heard. Pulmonary: Effort: Pulmonary effort is normal. No respiratory distress. Breath sounds: Normal breath sounds. Abdominal: General: Bowel sounds are normal. There is no distension. Palpations: Abdomen is soft. Tenderness: There is no abdominal tenderness. There is no guarding. Musculoskeletal: Right lower leg: No edema. Left lower leg: No edema. Skin: General: Skin is warm and dry. Findings: No rash. Neurological: Mental Status: She is alert and oriented to person, place, and time. Motor: Tremor (mild-moderate tremor to bilateral hands and mild tremor to head) present. Psychiatric: Mood and Affect: Mood normal. Behavior: Behavior normal. Thought Content: Thought content normal. Judgment: Judgment normal. Assessment/Plan: Problem List Items Addressed This Visit Impaired fasting glucose Will repeat A1c at next visit. Neuropathy of right sciatic nerve Degeneration of intervertebral disc of lumbar region Encouraged to continue follow-up with pain specialist and take medications as prescribed. Monitor for warning/red flag symptoms including but not limited to bowel and bladder incontinence, and saddle anesthesia. Primary hypertension Stable at this time continue on current medication regimen and monitoring blood pressure at home. As her blood pressure was slightly elevated here in the office her at home readings have been consistent with 120s over 70s.Patient denies chest pain, SOB, lower extremity weakness, heart palpitations, HERNANDEZ, dizziness, lightheadedness. Anxiety and depression Stable on Lexapro at this time denies SI/HI. Mild intermittent asthma without complication Relevant Medications albuterol 90 mcg/actuation inhaler Stable at this time, states she is intermittently uses albuterol as needed and very rarely. We discussed possible complications of asthma including increased risk for acute exacerbations and respiratory failure. Our goal is to keep your asthma under control to avoid exacerbations, hospitalizations, maintain healthy weight and BMI less than 26. We are working together to achieve these goals. Please use rescue inhaler PRN, and keep asthma log for recurrent cough, nighttime symptoms, or coughing upon exertion. If has daily or nighttime symptoms greater than 2 times weekly will need to follow up for adjustment of medications. Migraine Stable on current medication regimen of nortriptyline and rizatriptan as needed. Tremor of both hands Stable and has improved since being initiated on topamax, continue current therapy. Other Visit Diagnoses Encounter to establish care - Primary Urinary incontinence, unspecified type Stable on myrbetriq, encouraged continue follow up with urology and continued completed of exercises at home. Discussed with patient would like to see her in 6 months for continuation of care and at that time we will repeat lab work including hemoglobin A1c, CMP, CBC, and lipid panel. We are currently working on obtaining records from her previous PCP, pain physician, urologist and other past medical history. *Total encounter time today was over 40 minutes. This time includes review of past tests/notes, obtaining patient history, performing a medically necessary exam, counseling the patient, ordering tests/procedures/medications, documentation, and care coordination. Electronically signed by HOANG Manley 1:41 PM documented in this encounter [facility] 11-22-2023 Note HPI Chief Complaint Patient presents with Establish Care Subjective: Terri Beauchamp is a pleasant 48 y.o. female and is here for a comprehensive physical exam and to establish care. She was following with PCP in [place], and we are requesting her history to be faxed over. 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 DDD lumbar, and chronic bilateral low back pain with right sided sciatica--- Patient has a history of chronic lower back pain. 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 She has had MRI of her back which showed L2-L5 herniated disc, DDD and stenosis of lower back. She states that she has numbness and tingling to bilateral lower extremities has had multiple trials of prednisone. And was then referred to pain management Dr. Keane, pain management at the [facility]. She had her first back injection on 10/27/2023 and she also takes gabapentin at night for pain. 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 She was also evaluated by neurosurgery and was told no surgical invention at this time. Her follow-up with pain management is at the of this month. Migraines--she has had a history of migraine for many years her maintenance medication for her migraines is nortriptyline 10mg BID and and then her as needed management includes rizatriptin 5mg which she tells me she will take about once a month and then Excedrin as needed. Tremor-states that she has had a tremor to her bilateral hands and head for many years. Tells me she has seen neurology in the past and had testing completed and it was concluded that the tremors were benign. Tells me that she was started on Topamax around March of this year and states that her tremors have improved since initiation of this medication. She does have history of carpal tunnel surgery in bilateral hands and since then has had constant numbness in her first and second finger bilaterally and at times have difficulty with dropping things. Anxiety/depression-states she is doing well on Lexapro. Tells me that she was initially placed on Lexapro many years ago for depression. She then 6 months later came off of this medication but when her youngest daughter turned to she was placed back on it for feeling overwhelm and anxiety with a diagnosis of autism for her daughter. She has since then remained on this medication and states she is doing very well no issues and does not wish to come off this medication. Asthma-Denies any recent asthma exacerbations. Denies waking up throughout the night SOB. Denies SOB, HERNANDEZ, orthopnea, or coughing. 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 HTN-Patient denies chest pain, SOB, lower extremity weakness, heart palpitations, HERNANDEZ, dizziness, lightheadedness. Patient monitors BP at home stating her readings are 120s/70s and she monitors her blood pressure twice weekly. She takes her blood pressure medication in the evening and is currently managed on hydrochlorothiazide and lisinopril. OAB/Incontinence-states she follows with urology yearly, seeing Dr. Addie Siddiqi at [facility] in [place]. She was told she has a prolapse (unsure bladder or uterine) but did try a pessary but was painful for her therefore she completes exercises to help with incontinence and is on Myrbetriq which has been helpful for her. She does not get periods since she has had a uterine ablation in 2006. States she is due for PAP next year 2024. Her last laboratory levels were completed March this year. History of ankle surgery on left, Dr. Gómez. Health Maintenance Topic Date Due Pneumococcal Vaccine: Ped or At-Risk (1 of 2 - PCV) Never done HIV Screening Never done Hepatitis C Screening Never done Colorectal Cancer Screening/Monitoring 2023 Zoster Vaccines (1 of 2) Never done Influenza Vaccine (1) Never done COVID-19 Vaccine ( - ) 11/07/2023 Wellness Visit 03/25/2024 Mammogram 06/16/2024 Depression Screening/Follow-Up (PHQ-2/9) 11/21/2024 Cervical Cancer Screening 05/27/2026 Tetanus: Every 10yrs 12/19/2031 Preventive Measures: Colon cancer screening (45-75y/o): referral placed to general surgery for colonscopy Mammography (40-75y/o F): June 17 2023, had mammo and US. Pap (21-65 y/o F): Due 2024 Osteoporosis (>65 y/o F): HIV (once): Hep C (once 18-79 y/o): The following portions of the patient's history were reviewed and updated as appropriate: allergies, current medications, past family history, pa (more content not included)... [facility] 10-28-2023 History of Present illness Narrative Chief Complaint Patient presents with Back Pain Subjective Patient ID: Terri Beauchamp is a 48 y.o. female. HPI Mrs. 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 She has had chronic low back pain since college with intermittent flareups of pain that usually resolve with ice and anti-inflammatories. However in June when she was shoveling, she had acute low back pain that did not resolve with rest, ice, anti-inflammatories. She went to the emergency room and was started on oral steroids, muscle relaxants, and gabapentin. She then had follow-up with her primary care doctor who increased her gabapentin, however due to the side effects of drowsiness, she could only take the gabapentin at night. She also had a redose of oral steroids. Her pain continued and she was referred to pain management. She saw pain management and had an injection yesterday, 10/27/2023. She was told the injection could take up to a week to see the full benefits. She will have follow-up with her neckties painter and she is hopeful for good outcomes. Secondary to her acute on chronic low back pain, she and her decided that she should see a neurosurgeon for review and evaluation. Her low back pain is worse with standing for long periods of time and sitting in 1 position for long periods of time. When she gets up and moves around, the pain seems to subside some. When her pain is exacerbated, she has some weakness in the right leg. She has intermittent right leg radiating pain from the low back down the right lateral hip down the right lateral aspect of her leg into her foot. She states that most the time, her feet are numb and has tingling sensation in her legs bilaterally. She also has a history of multiple left ankle surgeries. She has known nerve damage of the left foot. There was a right ankle surgery that was recommended for her, that she has not had yet. She denies any changes in her bowel and bladder control. She presents today with a recent MRI of the lumbar spine for review. Review of Systems Please refer to the reviewed and scanned intake form for a full 14 point ROS. Objective BMI 33.09 Neurologic Exam Mental Status Oriented to person, place, and time. Level of consciousness: alert Knowledge: good. Motor Exam Muscle bulk: normal Right leg tone: normal Left leg tone: normal Strength Strength 5/5 throughout. Mild tenderness lower lumbar midline Moderate tenderness right SI joint that reproduces pain down the right lateral aspect of her leg to palpation Normal sit to stand Gait, Coordination, and Reflexes Gait Gait: normal Reflexes Right patellar: 1+ Left patellar: 1+ Imaging Results: MRI of the lumbar spine from [place] 10/11/2023 Assessment and Plan: Diagnoses and all orders for this visit: DDD (degenerative disc disease), lumbar - Ambulatory referral to Neurosurgery Chronic bilateral low back pain with right-sided sciatica We reviewed the patient's MRI images of the lumbar spine independently and also with the patient. It shows degenerative disc disease worst at L4-5 where there is a central disc herniation. There is mild central stenosis and mild far lateral right L4-5 foraminal stenosis. There is straightening of the normal lordosis of the lumbar spine. There are hemangiomas present at L2 and L4. We discussed her many reasons for chronic back pain. There is no neurosurgical intervention that we would recommend at this time. We are also hopeful that injections will be beneficial for the patient. She knows to contact us with any questions or concerns. We spent over 40 minutes of [id number] time with the patient, of which over 50% was spent in counseling. documented in this encounter [facility] 10-28-2023 Note Chief Complaint Patient presents with Back Pain Subjective Patient ID: Terri Beauchamp is a 48 y.o. female. HPI Mrs. 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 She has had chronic low back pain since college with intermittent flareups of pain that usually resolve with ice and anti-inflammatories. However in June when she was shoveling, she had acute low back pain that did not resolve with rest, ice, anti-inflammatories. She went to the emergency room and was started on oral steroids, muscle relaxants, and gabapentin. She then had follow-up with her primary care doctor who increased her gabapentin, however due to the side effects of drowsiness, she could only take the gabapentin at night. She also had a redose of oral steroids. Her pain continued and she was referred to pain management. She saw pain management and had an injection yesterday, 10/27/2023. She was told the injection could take up to a week to see the full benefits. She will have follow-up with her neckties painter and she is hopeful for good outcomes. Secondary to her acute on chronic low back pain, she and her decided that she should see a neurosurgeon for review and evaluation. Her low back pain is worse with standing for long periods of time and sitting in 1 position for long periods of time. When she gets up and moves around, the pain seems to subside some. When her pain is exacerbated, she has some weakness in the right leg. She has intermittent right leg radiating pain from the low back down the right lateral hip down the right lateral aspect of her leg into her foot. She states that most the time, her feet are numb and has tingling sensation in her legs bilaterally. She also has a history of multiple left ankle surgeries. She has known nerve damage of the left foot. There was a right ankle surgery that was recommended for her, that she has not had yet. She denies any changes in her bowel and bladder control. She presents today with a recent MRI of the lumbar spine for review. Review of Systems Please refer to the reviewed and scanned intake form for a full 14 point ROS. Objective BMI 33.09 Neurologic Exam Mental Status Oriented to person, place, and time. Level of consciousness: alert Knowledge: good. Motor Exam Muscle bulk: normal Right leg tone: normal Left leg tone: normal Strength Strength 5/5 throughout. Mild tenderness lower lumbar midline Moderate tenderness right SI joint that reproduces pain down the right lateral aspect of her leg to palpation Normal sit to stand Gait, Coordination, and Reflexes Gait Gait: normal Reflexes Right patellar: 1+ Left patellar: 1+ Imaging Results: MRI of the lumbar spine from [place] 10/11/2023 Assessment and Plan: Diagnoses and all orders for this visit: DDD (degenerative disc disease), lumbar - Ambulatory referral to Neurosurgery Chronic bilateral low back pain with right-sided sciatica We reviewed the patient's MRI images of the lumbar spine independently and also with the patient. It shows degenerative disc disease worst at L4-5 where there is a central disc herniation. There is mild central stenosis and mild far lateral right L4-5 foraminal stenosis. There is straightening of the normal lordosis of the lumbar spine. There are hemangiomas present at L2 and L4. We discussed her many reasons for chronic back pain. There is no neurosurgical intervention that we would recommend at this time. We are also hopeful that injections will be beneficial for the patient. She knows to contact us with any questions or concerns. We spent over 40 minutes of chvz-fz-aune time with the patient, of which over 50% was spent in counseling. AUTHENTICATED BY SYLVIA PEREA, ON 10/28/2023 15:05:35 [facility] 07-03-2023 Discharge summary Note Date/Time July 03, 2023 5:39pm [facility] Medical Records Department [address] [place] [address] Emergency Department Summary 07/03/23 MR#: [id number] Acct: [id number] Name: TERRI BEAUCHAMP Rep #:[id number] : 1975 48 From: Brandon Ontiveros PCP: Dr. Monica Harris MD Status :REG ER Location: ED HPI History of Present Illness Chief Complaint: Back Informant: patient and spouse/S.O. Narrative Narrative: Worsening right lower back pain yesterday. Symptoms for proxy 10 days ago. 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 She felt back pain has been using Tylenol or Motrin. She has had issues with her back in the past treated symptomatic at home. She went to the ER once maybe 2 years ago received muscle relaxers that helped. She states it worsened yesterday worse with any bending sitting. There is some tingling to the right gluteal region. No loss of bowel or bladder control. No saddle anesthesia. Last took Motrin 3 PM 2 hours ago Tylenol taken at noon. Patient has no allergies. She would have's spasmodic pains that would worsen. Prior similar symptoms: Yes and With Prior Back Pain PFSH PFSH Medical History Anxiety Asthma Benign essential tremor Cardiology follow-up encounter Depression Gastric reflux History of edema History of stress test History of ulceration Hypertension Migraine headache Non-smoker no medical history Home Medications escitalopram oxalate 10 mg tablet 20 mg PO DAILY 08/12/13 [History Last Taken Unknown] lisinopril 20 mg tablet 20 mg PO QHS 08/12/13 [History Last Taken Unknown] nortriptyline 10 mg capsule 20 mg PO QHS 08/12/13 [History Last Taken Unknown] albuterol sulfate 90 mcg/actuation aerosol inhaler (ProAir HFA) 1 - 2 puff inhalation Q4H PRN PRN allergry 04/12/15 [History Last Taken 04/19/15 07:00] hydrochlorothiazide 12.5 mg capsule 12.5 mg PO QHS 04/12/15 [History Last Taken Unknown] loratadine 10 mg tablet (Allergy Relief (loratadine)) 10 mg PO PRN PRN [id number]/05/16 [History Last Taken Unknown] multivitamin with folic acid 400 mcg tablet (Thera) 1 tab PO DAILY 04/12/15 [History Last Taken Unknown] omeprazole 20 mg capsule,delayed release 20 mg PO DAILY 04/12/15 [History Last Taken 01/28/21] diazepam 5 mg tablet 5 mg PO Q8 PRN Muscle Spasm #20 tabs 07/03/23 [Rx Last Taken Unknown] gabapentin 300 mg capsule 300 mg PO QHS #30 caps 07/03/23 [Rx Last Taken Unknown] prednisone 20 mg tablet 60 mg (3 x 20 mg) PO DAILY #12 TABLETS 07/03/23 [Rx Last Taken Unknown] rizatriptan 5 mg tablet 5 mg PO Q2H migraine 07/03/23 [History Last Taken Unknown] Allergy/AdvReac Type Severity Reaction Status Date / Time No Known Allergies Allergy Verified 07/03/23 17:02 Surgical History History of ankle surgery History of carpal tunnel release of both wrists History of cholecystectomy History of endometrial ablation Hx of umbilical hernia repair Social History Smoking Status: Never smoker ROS ROS ED Constitutional Constitutional ED: Denies chills, fever(s) or sweats Eyes Eyes: Denies change in vision ENT ENT ED: Denies dysphagia or sore throat Cardiovascular Cardiovascular: Denies chest pain, leg edema, palpitations or racing heartbeat Respiratory/Chest Respiratory/Chest: Denies cough, dyspnea or dyspnea on exertion Gastrointestinal Gastrointestinal: Denies abdominal pain, diarrhea, nausea or vomiting Genitourinary Genitourinary ED: Denies dysuria, hematuria or urinary frequency Musculoskeletal Musculoskeletal: Reports back pain; Denies extremity pain or neck pain Integumentary Denies rash or wounds Neurologic Neurologic: Denies headache(s), paresthesias or weakness EXAM Physical Exam Const Vital Signs: 07/03/23 16:59 07/03/23 17:01 07/03/23 18:03 Temperature 98.1 F 98.1 F Temperature Source Temporal Temporal Pulse Rate 103 H 111 H 78 Respiratory Rate 16 16 16 Blood Pressure 167/105 H 167/105 H 138/79 H Blood Pressure Mean 125 125 98 Pulse Ox 96 96 99 Oxygen Delivery Method Room Air Room Air Room Air Positive well nourished and well developed Constitutional Narrative: Standing bedside in position of comfort. Nontoxic General Appearance ED: well developed HEENT Reports moist mucous membranes normocephalic and atraumatic Eyes PERRL, EOMs intact bilaterally and conjunctivae normal General Eye ED: Yes normal appearance of both eyes Neck no lymphadenopathy and supple General: Negative for tenderness Chest Wall Chest: Negative for tenderness Resp normal respiratory effort and normal air movement Effort and Inspection: symmetric chest movement; Negative for respiratory distress Cardio regular rate, regular rhythm and no murmurs Peripheral Pulses: pulses 2+ throughout GI normal to inspection, nondistended, normoactive bowel sounds and non-tender Palpation: Negative for guarding or rebound tenderness present Back/Spine no CVA tenderness Back/Spine Narrative: No midline tenderness of thoracic or lumbar reproducible right paralumbar tenderness. Extremity normal to inspection General Extremety ED: Negative for edema or tenderness General Extremity: Negative for edema Neuro oriented x3 and no sensory deficits noted Sensorium / Orientation: awake and alert Skin no rashes or lesions noted and no wounds MDM MDM MDM Narrative Medical decision making narrative: Interventions / MDM: Differential diagnosis: Sciatica, lumbar strain, disc herniation Diagnosis considered but do not suspect: No cauda equina symptoms My EKG interpretation: N/A Imaging independently reviewed and interpreted by myself: Lumbar spine 2 views: Multilevel spondylolisthesis. Mild space marrow more prominent L4-L5 area. No fractures. External documents reviewed: N/A Test considered but not ordered:N/A ED course: Patient without cauda equina symptoms history concerns for lumbar strain with sciatica symptoms with her reported worsening symptoms with flexion possible concerns for herniation causing peripheral impingement. Recently took her NSAIDs, will dose with prednisone, gabapentin with neuropathic pain and started on Valium. LS-spine x-ray ordered for further evaluation. 1830: X-ray with mild anterior spondylolisthesis L4-L5 per radiology 2 mm. She had no radicular pain. Ambulated the patient myself, after getting up she is able to walk. Will continue symptom control. She has Motrin and Tylenol at home. Prescription for steroids muscle relaxer and gabapentin sent to pharmacy. She will follow-up with her PCP. All questions were answered. Re-evaluation: stable Disposition discussed with patient/family/significant other: Patient and significant other Case discussed with consulting clinician: N/A This note was generated with [employer]utor [employer] dictation software. It may contain incorrectwords, spelling, and punctuation that were not noted in checking the note beforesigning. Radiography Diagnostic Testing: Clinical Impression(s) from Imaging Studies Lumbar Spine X-Ray 07/03/23 17:32 IMPRESSION: Mild levoscoliosis with degenerative disc disease. MRI may be useful. Electronically Signed: Johnathon Wilhelm MD at 18:21 EDT , Discharge Plan Triage Chief Complaint: Back ED Provider: Brandon Shen Dx/Rx/DC Orders Clinical Impression: Sciatica of right side, Lumbar radiculopathy Instructions: Understanding Lumbar Radiculopathy, ED Sciatica Prescriptions: New prednisone 20 mg tablet 60 mg PO DAILY Qty: 12 0RF Rx Instructions: next dose 07/04/23 gabapentin 300 mg capsule 300 mg PO QHS Qty: 30 0RF diazepam [diazepam] 5 mg tablet 5 mg PO Q8 PRN (Reason: Muscle Spasm) Qty: 20 0RF No Action lisinopril 20 MG tablet 20 mg PO QHS nortriptyline 10 MG capsule 20 mg PO QHS escitalopram oxalate 10 MG tablet 20 mg PO DAILY hydrochlorothiazide 12.5 MG capsule 12.5 mg PO QHS omeprazole 20 MG capsule 20 mg PO DAILY albuterol sulfate [ProAir HFA] 1 PUFF inhaler 1 - 2 puff inhalation Q4H PRN PRN (Reason: allergry) loratadine [Allergy Relief (loratadine)] 10 MG tablet 10 mg PO PRN PRN (Reason: ALLERGIES) multivitamin with folic acid [Thera] 1 TABLET tablet 1 tab PO DAILY rizatriptan 5 mg tablet 5 mg PO Q2H Primary Care Provider: Monica Harris Referrals: Monica Harris MD [Primary Care Provider] - 3-5 Days Activity Restrictions/Additional Instructions: X-ray with degenerative changes. Symptoms concerning more for L4 radiculopathy on the right side. Continue Tylenol Motrin, prescription medications as prescribed. Follow-up with your doctor. Disposition Disposition: Home, Self Care What to do if you have Problems For any increased pain, shortness of breath, bleeding, nausea or vomiting, chestpain, or any unexpected problems, contact your Primary Care Provider. Call [facility] ([phone]) or report to the closest Emergency Room. Call 911 if necessary. 07/03/23 1839 <Electronically signed by Brandon Ontiveros> Cosigner Signature (if applicable): CC: Dr. Monica Harris MD ~ Signed [facility] Work Phone: [phone]) 486-368403-22-2022 NotePap Smear Specimen AdequacyMarch 2021 2:15pmCommentSatisfactory for evaluation. Endocervical and/or squamous metaplasticcells (endocervical component)are present.[employer] INTERFACED A#[id number] Hospital Work Phone: Comment on above:Satisfactory for evaluation. Endocervical and/or squamous metaplasticcells (endocervical component)are present.05-27-2021 NotePap Smear Specimen AdequacyMarch 2021 2:15pmComment Satisfactory for evaluation. Endocervical and/or squamous metaplasticcells (endocervical component)are present.[employer] INTER[employer]ACED A#[id number] Hospital Work Phone: Comment on above:Satisfactory for evaluation. Endocervical and/or squamous metaplasticcells (endocervical component)are present.05-27-2021 NotePap Smear Specimen AdequacyMarch 2021 2:15pmComment Satisfactory for evaluation. Endocervical and/or squamous metaplasticcells (endocervical component)are present.[employer] INTER[employer]AC[employer] A#[id number] Hospital Work Phone: Comment on above:Satisfactory for evaluation. Endocervical and/or squamous metaplasticcells (endocervical component)are present.05-27-2021 NotePap Smear Specimen AdequacyMarch 2021 2:15pmComment Satisfactory for evaluation. Endocervical and/or squamous metaplasticcells (endocervical component)are present.[facility] INTER[facility]ACED A#[id number] Health Work Phone: Comment on above:Satisfactory for evaluation. Endocervical and/or squamous metaplasticcells (endocervical component)are present.05-27-2021 NotePap Smear Specimen AdequacyMarch 2021 2:15pmComment .Satisfactory for evaluation. Endocervical and/or squamous metaplasticcells (endocervical component)are present.[facility] A#[id number] Health Work Phone: Comment on above:Satisfactory for evaluation. Endocervical and/or squamous metaplasticcells (endocervical component)are present.Evaluation noteNo assessment information availableWUC Health Work Phone: Evaluation note* Diagnosis DDD (degenerative disc disease), lumbar- Primary Degeneration of lumbar or lumbosacral intervertebral disc [facility] Diagnosis DDD (degenerative disc disease), lumbar- Primary Degeneration of lumbar or lumbosacral intervertebral disc Chronic bilateral low back pain with right-sided sciatica [facility] Diagnosis Encounter to establish care- Primary Impaired fasting glucose Primary hypertension Unspecified essential hypertension Mild intermittent asthma without complication Anxiety and depression Other migraine without status migrainosus, not intractable Degeneration of intervertebral disc of lumbar region Neuropathy of right sciatic nerve Tremor of both hands Urinary incontinence, unspecified type Encounter for screening for malignant neoplasm of colon [facility] Diagnosis Ganglion cyst of wrist, left [facility] Diagnosis Ganglion cyst of wrist, left- Primary [facility] Diagnosis Ganglion cyst of wrist, left- Primary [facility] Diagnosis Primary hypertension- Primary Unspecified essential hypertension Anxiety and depression [facility] Diagnosis S/P excision of ganglion cyst- Primary [facility] Diagnosis S/P excision of ganglion cyst- Primary [facility] Diagnosis Encounter to establish care with new doctor- Primary Encounter for screening mammogram for breast cancer Primary hypertension Unspecified essential hypertension Glucose intolerance (impaired glucose tolerance) Impaired glucose tolerance test Vitamin D deficiency History of iron deficiency Medication management Dyspepsia Dyspepsia and other specified disorders of function of stomach Degeneration of intervertebral disc of lumbar region with discogenic back pain and lower extremity pain Depression, major, recurrent, mild (CMS-HCC) BRIDGET (generalized anxiety disorder) Generalized anxiety disorder Mild intermittent asthma without complication (HHS-HCC) Benign essential tremor Essential and other specified forms of tremor Class 2 severe obesity due to excess calories with serious comorbidity and body mass index (BMI) of 35.0 to 35.9 in adult Encounter for dietary counseling and surveillance documented in this encounter [facility] Work Phone: Evaluation note* Diagnosis Controlled type 2 diabetes mellitus with hyperglycemia, without long-term current use of insulin Benign essential tremor Essential and other specified forms of tremor Depression, major, recurrent, mild BRIDGET (generalized anxiety disorder) Generalized anxiety disorder Intractable migraine with aura with status migrainosus Migraine with aura, with intractable migraine, so stated, with status migrainosus Primary hypertension Unspecified essential hypertension Class 1 obesity due to excess calories with serious comorbidity and body mass index (BMI) of 31.0 to 31.9 in adult documented in this encounter [facility] Work Phone: Evaluation note* Diagnosis Controlled type 2 diabetes mellitus with hyperglycemia, without long-term current use of insulin (Multi)- Primary Primary hypertension Unspecified essential hypertension Intractable migraine with aura with status migrainosus Migraine with aura, with intractable migraine, so stated, with status migrainosus Vitamin D deficiency Overweight (BMI 25.0-29.9) Overweight BRIDGET (generalized anxiety disorder) Generalized anxiety disorder Depression, major, recurrent, mild Benign essential tremor Essential and other specified forms of tremor documented in this encounter [facility] Work Phone: Hospital Discharge instructions Additional Instructions X-ray with degenerative changes. Symptoms concerning more for L4 radiculopathy on the right side. Continue Tylenol Motrin, prescription medications as prescribed. Follow-up with your doctor.[facility] Work Phone: Reason for referral (narrative)No reason for referral information availableWUC Health Work Phone: Assessments Diagnosis Carpal tunnel syndrome of le ft wrist - Primary Summary Purpose Family History No Family History Records FoundNo Family History Records FoundNo Family History Records FoundNo Family History Records FoundNo Family History Records FoundNo Family History Records FoundNo Family History Records Found Advance Directives No Advanced Directives Records Found Advance Directive Response Recorded Date/ Time Living Will No January 23, 2 021 3:24pm Power of Shackler No January 23, 2021 3:24pm Advance Directive Response Recorded Date/ Time Living Will No September 10, 2021 4 :48pm Power of Shackler No September 10, 2021 4:48pm Advance Directive Response Recorded Date/ Time Advance Directives No April 12, 2015 10:21am Living Will No September 10, 2021 3 :48pm Power of Shackler No September 10, 2021 3:48pm Advance Directive Response Recorded Date/ Time Advance Directives No April 12, 2015 11:21am Living Will No September 10, 2021 4 :48pm Power of Shackler No September 10, 2021 4:48pm Advance Directive Response Recorded Date/ Time Advance Directives No April 12, 2015 11:21am Living Will No July 03, 2023 5:34pm Power of Shackler No July 02 5:34pm Advance Directive Response Recorded Date/ Time Advance Directives No April 12, 2015 11:21am Procedure Findings Note [address] [id number] [address] [place], [place] [address]SP[facility] [id number] 1975DATE 12/30/2017OPERATIVE REPORT / PROCEDURE NOTESURGEON MIRELLA CHARLESREOPERATIVE DIAGNOSISCarpal tunnel syndrome.POSTOPERATIVE DIAGNOSISCarpal tunnel syndrome.OPERATIONOpen decompression [...] at 250 mmHg. (more content not included)... Chief Complaint and Reason for Visit Chief Complaint SCREENING ABN MAMM Chief Complaint SCREENING ABN MAMM bloody stool Chief Complaint SCREENING Chief Complaint SCREEN ABN MAMM LT BREAST Chief Complaint SCREEN ABN MAMM LT BREAST BACK Chief Complaint Admit Date SCREENING June 20, 2024 8:5 9am Reason for Referral Specialty Diagnoses / Procedures Referred By Contac t Referred To Contact Neurosurgery Diagnoses DDD (degenerative disc disease), lumbar Monica Harris MD [address] [place] [address] Sylvia Perea MD [address] [place] [address] Referral ID Status Reason Start Date Expiration Date V isits Requested Visits Authorized [id number] Authorized 10/20/2023 10/19/2024 1 1 Specialty Diagnoses / Procedures Referred By Contac t Referred To Contact General Surgery Diagnoses Encounter for screening for malignant neoplasm of colon Malka Bernal, PILE TRIMMER [address] [facility] 2nd [place] [address] Camille Meraz MD [address] [facility] [address] [place] [address] Referral ID Status Reason Start Date Expiration Date V isits Requested Visits Authorized [id number] Authorized 11/22/2023 11/21/2024 1 1 Specialty Diagnoses / Procedures Referred By Contac t Referred To Contact Diagnoses Ganglion cyst of wrist, left Procedures MR Wrist Left Without Contrast Karen Armenta, PILE TRIMMER [address] [place] [address] Referral ID Status Reason Start Date Expiration Date V isits Requested Visits Authorized [id number] New Request 12/30/2023 12/29/2024 1 1 Additional Source Comments INFORMATION SOURCE (unrecogn ized section and content) DATE CREATED AUTHOR 01/29/2018 [facility] DATE CREATED AUTHOR AUTHOR'S ORGANIZ ATION 02/26/2024 [facility] DATE CREATED AUTHOR AUTHOR'S ORGANIZ ATION 03/16/2024 [facility] DATE CREATED AUTHOR AUTHOR'S ORGANIZ ATION 04/24/2024 [facility] DATE CREATED AUTHOR AUTHOR'S ORGANIZ ATION 05/29/2024 [facility] DATE CREATED AUTHOR AUTHOR'S ORGANIZ ATION 12/08/2024 [facility] DATE CREATED AUTHOR AUTHOR'S ORGANIZ ATION 12/14/2024 [facility] Ambulatory Goals (unrecognized section and content) Goals may be documented in a n alternate sectionGoals may be documented in an alternate sectionGoals may be documented in an alternate sectionGoals may be documented in an alternate sectionGoals may be documented in an alternate sectionGoals may be documented in an alternate sectionGoals may be documented in an alternate sectionGoals may be documented in an alternate sectionGoals may be documented in an alternate sectionGoals may be documented in an alternate sectionGoals may be documented in an alternate sectionGoals may be documented in an alternate sectionGoals may be documented in an alternate sectionGoals may be documented in an alternate section Care Teams (unrecognized sec tion and content) Team Status: Active Member Role Status Dates Dr. Riky Harris MD Family Provider Active Dr. Riky Harris MD Primary Care Provider Activ e Team Status: Inactive Member Role Status Dates Dr. Riky Harris MD Primary Care Provider Activ e Ayana Pittman , UTILITY SYSTEMS REPAIRER OPERATOR-C Attending Provider, Referring Pr ovider Active Team Status: Inactive Member Role Status Dates Dr. Riky Harris MD Primary Care Provider Activ e Eva Quintero , Attending Provider, Referring Pr ovider Active Team Status: Active Member Role Status Dates Dr. Riky Harris MD Primary Care Provider, Atte nding Provider Active Team Status: Inactive Member Role Status Dates Dr. Riky Harris MD Primary Care Provider, Atte nding Provider Active Team Status: Active Member Role Status Dates Dr. Monica Harris MD Family Provider Active Dr. Monica Harris MD Primary Care Provider Acti ve Team Status: Inactive Member Role Status Dates Dr. Monica Harris MD Primary Care Provider Acti ve Eva Quintero , DO Attending Provider, Referring Pr ovider Active Team Status: Inactive Member Role Status Dates Dr. Monica Harris MD Primary Care Provider, Att ending Provider Active Team Status: Inactive Member Role Status Dates Dr. Monica Harris MD Primary Care Provider Acti ve Ayana Pittman , UTILITY SYSTEMS REPAIRER OPERATOR-C Attending Provider, Referring Pr ovider Active Team Status: Active Member Role Status Dates Dr. Monica Harris MD Primary Care Provider Acti ve Ayana Pittman , UTILITY SYSTEMS REPAIRER OPERATOR-C Attending Provider, Referring Pr ovider Active Team Status: Inactive Member Role Status Dates Dr. Monica Harris MD Primary Care Provider Acti ve Dr. Brandon Shen DO Emergency Provider Active Medical Staff Assistant Relationship Specialty Start Date End Date Monica Harris MD [address] [place] [address] PCP - General Family Medicine 08/07/15 Medical Staff Assistant Relationship Specialty Start Date End Date Monica Harris MD [address] [place] [address] PCP - General Family Medicine 08/07/15 Medical Staff Assistant Relationship Specialty Start Date End Date Malka Bernal CNP [address] [place] [address] PCP - General Nurse Practitioner 11/22/23 Monica Harris MD [address] [place] [address] Referring Physician Family Medicine 11/02/23 Medical Staff Assistant Relationship Specialty Start Date End Date Malka Bernal CNP [address] [place] [address] PCP - General Nurse Practitioner 11/22/23 Monica Harris MD [address] [place] [address] Referring Physician Family Medicine 11/02/23 Malka Bernal CNP [address] [place], [place] [id number] Referring Physician Nurse Practitioner 11/23/23 Medical Staff Assistant Relationship Specialty Start Date End Date Malka Bernal CNP [address] [place], [place] [id number] PCP - General Nurse Practitioner 11/22/23 Malka Bernal CNP [address] [place], [place] [phone] PCP - ISHMAEL Attributed Provider - [facility] 03/08/14 03/07/50 Monica Harris MD [address] [place] [address] Referring Physician Family Medicine 11/02/23 Malka Bernal CNP [address] [place] [id number] Referring Physician Nurse Practitioner 11/23/23 Medical Staff Assistant Relationship Specialty Start Date End Date Malka Bernal CNP [address] [place] [id number] PCP - General Nurse Practitioner 11/22/23 Malka Bernal CNP [address] [place] [id number] PCP - ISHMAEL Attributed Provider - [facility] 03/08/14 03/07/50 Monica Harris MD [address] [facility] [address] [place] [address] Referring Physician Family Medicine 11/02/23 Malka Bernal CNP [address] [address] Referring Physician Nurse Practitioner 11/23/23 Medical Staff Assistant Relationship Specialty Start Date End Date Malka Bernal CNP [address] [address] PCP - General Nurse Practitioner 11/22/23 Malka Bernal CNP [facility] [address] [address] PCP - ISHMAEL Attributed Provider - [facility] 03/08/14 03/07/50 Monica Harris MD [address] [facility] [address] [place] [address] Referring Physician Family Medicine 11/02/23 Malka Bernal CNP [facility] [address] [address] Referring Physician Nurse Practitioner 11/23/23 Medical Staff Assistant Relationship Specialty Start Date End Date Malka Bernal CNP [address] [address] PCP - General Nurse Practitioner 11/22/23 Malka Bernal CNP [address] [address] PCP - ISHMAEL Attributed Provider - [facility] 03/08/14 03/07/50 Monica Harris MD [address] [place] [address] Referring Physician Family Medicine 11/02/23 Malka Bernal CNP [address] [address] Referring Physician Nurse Practitioner 11/23/23 Medical Staff Assistant Relationship Specialty Start Date End Date Malka Bernal CNP [address] [place] [id number] PCP - ISHMAEL Attributed Provider - [facility] 03/08/14 03/07/50 Monica Harris MD [address] [place] [address] Referring Physician Family Medicine 11/02/23 Medical Staff Assistant Relationship Specialty Start Date End Date Patric Willis PA-C [address] [facility] [place] [address] PCP - General Internal Medicine 04/20/24 Team Status: Active Member Role Status Dates ANGEL Jaramillo Primary Care Provider Active Team Status: Inactive Member Role Status Dates SARAH ManleyC Primary Care Provider Active Start: April 28, 2024 End: April 28, 2024 ANGEL Jaramillo Attending Provider Active Start: April 28, 2024 End: April 28, 2024 ANGEL Jaramillo Referring Provider Active Start: April 28, 2024 End: April 28, 2024 Team Status: Inactive Member Role Status Dates ANGEL Jaramillo Primary Care Provider Active Start: June 20, 2024 End: June 20, 2024 ANGEL Jaramillo Attending Provider Active Start: June 20, 2024 End: June 20, 2024 Patric Willis PA, PA Referring Provider Active Start: June 20, 2024 End: June 20, 2024 Medical Staff Assistant Relationship Specialty Start Date End Date Patric Willis PA-C [address] [address] PCP - General Internal Medicine 09/06/24 Patric Willis PA-C Internal Medicine 04/20/24 Team Status: Active Member Role/Relationship Status Dates Patric Willis PA, PA Primary Care Provider Active Team Status: Inactive Member Role/Relationship Status Dates Patric Willis PA, PA Primary Care Provider Active Start: June 20, 2024 End: June 20, 2024 Patric Willis PA, PA Attending Provider Active Start: June 20, 2024 End: June 20, 2024 Patric Willis PA, PA Referring Provider Active Start: June 20, 2024 End: June 20, 2024 Team Status: Inactive Member Role/Relationship Status Dates Patric Willis PA, PA Primary Care Provider Active Start: September 11, 2024 End: September 11, 2024 Patric Willis PA, PA Attending Provider Active Start: September 11, 2024 End: September 11, 2024 Patric Willis PA, PA Referring Provider Active Start: September 11, 2024 End: September 11, 2024 Team Status: Active Member Role/Relationship Status Dates Patric Willis PA, PA Primary care physician Active Team Status: Inactive Member Role/Relationship Status Dates Patric Willis PA, PA Primary care physician Active Start: September 05, 2024 Dr. Addie Siddiqi MD Attending physician Active Start: September 05, 2024 Team Status: Inactive Member Role/Relationship Status Dates Patric Willis PA, PA Primary care physician Active Start: September 11, 2024 End: September 11, 2024 Patric Willis PA, PA Attending physician Active Start: September 11, 2024 End: September 11, 2024 Patric Willis PA, PA Referring Provider Active Start: September 11, 2024 End: September 11, 2024 Team Status: Inactive Member Role/Relationship Status Dates ANGEL Jaramillo Primary care physician Active Start: November 27, 2024 End: November 27, 2024 ANGEL Jaramillo Attending physician Active Start: November 27, 2024 End: November 27, 2024 ANGEL Jaramillo Referring Provider Active Start: November 27, 2024 End: November 27, 2024 Medical Staff Assistant Relationship Specialty Start Date End Date Patric Willis PA-C [address] [place] [place] [address] PCP - General Internal Medicine 09/06/24 Patric Willis PA-C Internal Medicine 04/20/24 Reason for Visit (unrecogniz ed section and content) Reason Comments Back Pain Specialty Diagnoses / Procedures Referred By Contac t Referred To Contact Neurosurgery Diagnoses DDD (degenerative disc disease), lumbar Monica Harris MD [address] [facility] [address] [place] [address] Sylvia Perea MD [address] [place] [address] Referral ID Status Reason Start Date Expiration Date Visits Re quested Visits Authorized [id number] Closed 10/20/2023 10/19/2024 1 1 Reason Comments Establish Care Reason Comments Other Specialty Diagnoses / Procedures Referred By Contac t Referred To Contact Orthopedic Surgery Diagnoses Ganglion cyst of wrist, left Shank, Malka Liang, PILE TRIMMER [address] [facility] [address]nd [place] [address] [facility] [address] [place] [address] Referral ID Status Reason Start Date Expiration Date V isits Requested Visits Authorized [id number] Closed Specialty Services Required/Zenaida ent's Best Interest 12/13/2023 12/12/2024 1 1 Reason Comments Results Review MRI Reason Onset Date Comments Medication Refill 03/11/2024 Reason Comments Follow-up Suture / Staple Removal Reason Comments Follow-up Reason Comments New Patient Visit New patient Reason Comments Follow-up 3 MONTH FOLLOW UP NO LABS Reason Comments Follow-up F/U WITH LABS AND ME D CHECK FOR RECORDS PERTAINING TO PATIENTS WHO ARE [...] BE BASED ON THE PRIMARY CLINICAL RECORDS. [facility]. provides no warranty or guarantee of the accuracy or completeness of information in this document.
[2024-12-20 20:54] VITALS: BP 142/60; PULSE 81; RESP 16; TEMP 36.7; O2SAT 97
== END 2024-12-20 20:54 | disposition home or self-care (01) ==
PROVIDERS: Emergency Provider Emergency Medicine; PCP Physician Assistant Medical; Visit Provider Emergency Medicine
DX: S06.0X0A Concussion without loss of consciousness, initial encounter (principal); R11.0 Nausea; I10 Essential (primary) hypertension; J45.909 Unspecified asthma, uncomplicated; W01.0XXA Fall on same level from slipping, tripping and stumbling without subsequent striking against object, initial encounter
CPT/HCPCS: 70450; 99282